=== PATIENT | female | born 1955 | race Caucasian/White ===

== ENCOUNTER → 2019-02-05 | Outpatient (CLI) | payer OTHER ==
--- NOTE | 2019-02-05 12:00 | Diagnostic Imaging Report ---
PROCEDURE: MRI left upper extremity without contrast. TECHNIQUE: Multiplanar, multisequence non contrast-enhanced MRI of the left upper extremity was accomplished. INDICATION: Shoulder pain. There are no prior studies available for comparison. FINDINGS: The T2 coronal fat-saturated sagittal series reveals that there is a tear involving the anterior insertion of the rotator cuff. The tear measures approximately 1 CM in maximum AP diameter. The rotator cuff in this area is bunched but the supraspinatus muscle itself is not retracted.. There is hypertrophy of the acromioclavicular joint and this does result in narrowing of the outlet for the supraspinatus muscle. There is also small amount of fluid within the joint itself indicating there is mild inflammation of joint. In addition, there is fluid in both the subacromial and subdeltoid bursa and the presence of fluid indicates that there is an element of bursitis present. The labrum is thinned posteriorly and most likely torn on a degenerative basis. The biceps tendon and the subscapularis tendon are intact. There is at least a moderate amount of fluid within the biceps tendon sheath. This does suggest a median ulnar inflammation present as well. There is a small joint effusion present. There is no abnormal signal arising from the osseous structures to indicate an acute bony abnormality. IMPRESSION: 1. There is a tear of the anterior insertion of the rotator cuff. The supraspinatus muscle in this area is bunched but not retracted. 2. The hypertrophy of the acromioclavicular does result in narrowing of the outlet for the supraspinatus muscle. There is also evidence of fluid within the acromioclavicular joint and subacromial and subdeltoid bursa as well as in the biceps tendon sheath. The presence of fluid does suggest that there is an element of inflammation present. 3. There is no sign of an acute bony abnormality. Dictated by: Dictated on workstation # [id number]
== END ==
LOC: RAD 09:45
PROVIDERS: ATTEND Nurse Practitioner Family
DX: M75.102 Unspecified rotator cuff tear or rupture of left shoulder, not specified as traumatic (principal); M62.89 Other specified disorders of muscle; Z95.5 Presence of coronary angioplasty implant and graft
CPT/HCPCS: 73221

== ENCOUNTER → 2019-02-17 | Outpatient (CLI) | payer OTHER | LOC: CARD 11:50 | PROVIDERS: ATTEND Internal Medicine Cardiovascular Disease | DX: I25.10 Atherosclerotic heart disease of native coronary artery without angina pectoris (principal); I10 Essential (primary) hypertension; E78.2 Mixed hyperlipidemia; I21.9 Acute myocardial infarction, unspecified | CPT/HCPCS: 93306 ==

== ENCOUNTER → 2019-02-23 | Outpatient (CLI) | payer OTHER ==
[~2019-02-23] MED LIST: REGADENOSON 0.4 MG/5 ML SYR (LEXISCAN) IV ONE
[2019-02-23] MEDS: CATHETER FLUSH 10 ML SYR IV PRN (07:45)
[2019-02-23 09:13] VITALS: BP 119/87
[2019-02-23 09:15] VITALS: BP 114/87
[2019-02-23 09:17] VITALS: BP 119/81
--- NOTE | 2019-02-23 13:06 | STRESS TEST ---
DATE OF SERVICE: 02/23/2019 LEXISCAN MYOVIEW STRESS TEST REPORT REFERRING PHYSICIAN: Dr. Abhilash Robles. Baseline heart rate is 82. Baseline blood pressure 119/87. Baseline EKG is sinus rhythm with no ischemic changes. In summary, the patient was injected with 10.96 mCi of technetium-99 Myoview and the resting images were obtained. Then, the patient received 0.4 mg of Lexiscan followed by 30.3 mCi of technetium-99 Myoview. Throughout the test, there were no EKG changes. The resting and stress images were reviewed and compared in the short axis, horizontal long axis, and vertical long axis views. Review of the images showed diaphragmatic attenuation with decreased uptake involving the whole inferior wall, inferolateral wall and inferoseptum with mild reversibility. SSS is 27. SDS is 4. TID value 1.02. On the gated images, the left ventricle appeared to be in normal size with mild hypokinesia of the inferior wall, still have some contractility. Calculated ejection fraction 54%. CONCLUSION: 1. The patient tolerated Lexiscan well. 2. Diaphragmatic attenuation with fixed defect involving the whole inferior wall with mild reversibility. 3. Normal left ventricular size with mild hypokinesia of the inferior wall, still having some contractility. Calculated ejection fraction 54%. Job ID: [id number] DocumentID: [id number] Dictated Date: 02/23/2019 10:40:45 Accounting Recruiter Date: 02/23/2019 13:05:31 Dictated By: SAYRA AYON MD
== END ==
LOC: CARD 07:33
PROVIDERS: ATTEND Internal Medicine Cardiovascular Disease
DX: I25.10 Atherosclerotic heart disease of native coronary artery without angina pectoris (principal); I10 Essential (primary) hypertension; E78.2 Mixed hyperlipidemia
CPT/HCPCS: 78452; 93017

== ENCOUNTER → 2019-03-03 | Outpatient (CLI) | payer OTHER ==
[~2019-03-03] MED LIST changes: +CATHETER FLUSH 10 ML SYR IV PRN; -REGADENOSON 0.4 MG/5 ML SYR (LEXISCAN) IV ONE
== END ==
LOC: CARD 12:49
PROVIDERS: ATTEND Physician Assistant
DX: I25.10 Atherosclerotic heart disease of native coronary artery without angina pectoris (principal); I10 Essential (primary) hypertension; E78.2 Mixed hyperlipidemia; R94.39 Abnormal result of other cardiovascular function study
CPT/HCPCS: 78452; 93017

== ENCOUNTER 2019-03-11 06:48 | Day surgery (SDC) | payer OTHER ==
[2019-03-11] VITALS (11 sets, daily range): BP systolic 115–147; BP diastolic 86–99
[~2019-03-11] VITALS: Ht 177.8 cm; Wt 86.2 kg
[2019-03-11] MEDS ORDERED: HEParin (CATH LAB) 2,000 ML IV ONE (06:49)
[2019-03-11] MEDS ORDERED: LIDOCAINE 1% INJ 20 ML 20 ML VIAL ONE (06:49)
[2019-03-11] MEDS ORDERED: NS IV 1000 ML 1,000 ML ONE (06:49)
--- OUTSIDE RECORDS SUMMARY | 2019-03-11 06:50 | XMS REPORT | Continuity of Care Document ---
Author Organization Unknown Address Unknown Allergies Active Description Code Type Severity Reaction Onset Reported/Identified Relationship to Patient Clinical Status Yes No Allergy Information Available [id number] Drug Allergy Unknown N/A 02/23/2019 Medications There is no data. Problems Date Dx Coded Attending Type Code Diagnosis Diagnosed By 02/08/2019 ROYAL WARREN Ot M62.89 OTHER SPECIFIED DISORDERS OF MUSCLE 02/08/2019 ROYAL WARREN Ot M75.102 UNSP ROTATR-CUFF TEAR/RUPTR OF LEFT SHOU 02/08/2019 ROYAL WARREN Ot Z95.5 PRESENCE OF CORONARY ANGIOPLASTY IMPLANT 02/17/2019 ROYAL WARREN Ot M62.89 OTHER SPECIFIED DISORDERS OF MUSCLE 02/17/2019 ROYAL WARREN Ot M75.102 UNSP ROTATR-CUFF TEAR/RUPTR OF LEFT SHOU 02/17/2019 ROYAL WARREN Ot Z95.5 PRESENCE OF CORONARY ANGIOPLASTY IMPLANT 02/23/2019 ROYAL WARREN Ot M62.89 OTHER SPECIFIED DISORDERS OF MUSCLE 02/23/2019 ROYAL WARREN Ot M75.102 UNSP ROTATR-CUFF TEAR/RUPTR OF LEFT SHOU 02/23/2019 ROYAL WARREN Ot Z95.5 PRESENCE OF CORONARY ANGIOPLASTY IMPLANT 02/24/2019 SAYRA AYON MD Ot E78.2 MIXED HYPERLIPIDEMIA 02/24/2019 SAYRA AYON MD Ot I10 ESSENTIAL (PRIMARY) HYPERTENSION 02/24/2019 SAYRA AYON MD Ot I21.9 ACUTE MYOCARDIAL INFARCTION, UNSPECIFIED 02/24/2019 SAYRA AYON MD Ot I25.10 ATHSCL HEART DISEASE OF [place] CORONARY 02/26/2019 SAYRA AYON MD Ot E78.2 MIXED HYPERLIPIDEMIA 02/26/2019 SAYRA AYON MD Ot I10 ESSENTIAL (PRIMARY) HYPERTENSION 02/26/2019 SAYRA AYON MD Ot I25.10 ATHSCL HEART DISEASE OF [place] CORONARY 03/04/2019 SADE WALLACE Ot E78.2 MIXED HYPERLIPIDEMIA 03/04/2019 SADE WALLACE Ot I10 ESSENTIAL (PRIMARY) HYPERTENSION 03/04/2019 SADE WALLACE Ot I25.10 ATHSCL HEART DISEASE OF [place] CORONARY 03/04/2019 SADE WALLACE Ot R94.39 ABNORMAL RESULT OF OTHER CARDIOVASCULAR 03/06/2019 ROYAL WARREN Ot M62.89 OTHER SPECIFIED DISORDERS OF MUSCLE 03/06/2019 ROYAL WARREN Ot M75.102 UNSP ROTATR-CUFF TEAR/RUPTR OF LEFT SHOU 03/06/2019 ROYAL WARREN Ot Z95.5 PRESENCE OF CORONARY ANGIOPLASTY IMPLANT 03/09/2019 SADE WALLACE Ot E78.2 MIXED HYPERLIPIDEMIA 03/09/2019 SADE WALLACE Ot I10 ESSENTIAL (PRIMARY) HYPERTENSION 03/09/2019 SADE WALLACE Ot I25.10 ATHSCL HEART DISEASE OF [place] CORONARY 03/09/2019 SADE WALLACE Ot R94.39 ABNORMAL RESULT OF OTHER CARDIOVASCULAR Procedures There is no data. Results There is no data. Encounters ACCT No. Visit Date/Time Discharge Status Pt. Type Provider Facility Loc./Unit Complaint [id number] 03/03/2019 12:49:00 03/03/2019 23:59:59 CLS Outpatient SADE WALLACE Via [facility] CARD ABN STRESS TEST,HTN,CAD [id number] 02/23/2019 07:33:00 02/23/2019 23:59:59 CLS Outpatient SAYRA AYON MD [facility] CARD CAD,HTN [id number] 02/17/2019 11:50:00 02/17/2019 23:59:59 CLS Outpatient SAYRA AYON MD [facility] CARD CAD,HTN [id number] 02/05/2019 09:45:00 02/05/2019 23:59:59 CLS Outpatient ROYAL WARREN [facility] RAD PAIN IN LEFT SHOULDER [id number] 03/11/2019 08:00:00 PEN Preadmit NANY DYE, SAYRA Diez [facility] CATH ABN STRESS TEST,CAD,HTN
[2019-03-11] MEDS ORDERED: NS IV 1000 ML 1,000 ML IV SCH ×2 (07:00→08:30)
[2019-03-11 07:10] LABS: BILIRUBIN,URINE NEGATIVE (NEGATIVE); CLARITY,URINE CLEAR; COLOR,URINE YELLOW; GLUCOSE, URINE (UA) NEGATIVE (NEGATIVE); KETONES,URINE NEGATIVE (NEGATIVE); LEUKOCYTE ESTERASE ,URINE NEGATIVE (NEGATIVE); NITRITE,URINE NEGATIVE (NEGATIVE); PH,URINE 6 (5-9); PROTEIN,URINE 1+ (NEGATIVE); UROBILINOGEN,URINE NORMAL (NORMAL)
[2019-03-11 07:10] LABS: HEMOGLOBIN 16.3 G/DL (11.5-16.0); RED CELL DISTRIBUTION WIDTH 13.7 % (10.0-14.5); WHITE BLOOD COUNT 8.8 10^3/uL (4.3-11.0)
[2019-03-11] MEDS ORDERED: METO50TA15 PO (07:19)
[2019-03-11] MEDS ORDERED: TIOT4MIS2 IH (07:19)
[2019-03-11] MEDS ORDERED: CLOP75TA69 PO (07:19)
[2019-03-11] MEDS ORDERED: ATOR80TA76 PO (07:19)
[2019-03-11] MEDS ORDERED: GLIP5TAB13 PO (07:19)
[2019-03-11] MEDS ORDERED: NITR0.4T39 SL (07:19)
[2019-03-11] MEDS ORDERED: ASPI-999 PO (07:19)
[2019-03-11] MEDS ORDERED: METF-398 PO ×2 (07:19→08:32)
[2019-03-11] MEDS ORDERED: fentaNYL INJECTION 100 MCG/2 ML AMP ONE (07:22)
[2019-03-11] MEDS ORDERED: MIDAZOLAM 5 MG/5 ML (VERSED) VIAL ONE (07:22)
[2019-03-11 07:27] LABS: INR 0.9 (0.8-1.4); PROTHROMBIN TIME PATIENT 12.5 SEC (12.2-14.7)
[2019-03-11 07:33] LABS: ALBUMIN 4.5 GM/DL (3.2-4.5); BILIRUBIN,TOTAL 0.6 MG/DL (0.1-1.0); CALCIUM 9.6 MG/DL (8.5-10.1); CREATININE SERUM 1.1 MG/DL (0.60-1.30); POTASSIUM 4.1 MMOL/L (3.6-5.0); TOTAL PROTEIN 7.1 GM/DL (6.4-8.2)
--- NOTE | 2019-03-11 07:35 | Diagnostic Imaging Report ---
EXAM: CHEST 1 VIEW, AP/PA ONLY INDICATION: Coronary artery disease. Hypertension. COMPARISON: None. FINDINGS: Normal heart size and pulmonary vascularity. No dense consolidation, pleural effusion or pneumothorax. No acute osseous findings. IMPRESSION: No acute cardiopulmonary findings. Dictated by: Dictated on workstation # [id number]
[2019-03-11 07:37] LABS: BACTERIA,URINE TRACE /HPF; SQUAMOUS EPITHELIAL CELL,UR RARE /HPF; WBC,URINE RARE /HPF
--- NOTE | 2019-03-11 08:19 | Cardiac Procedure Note-CS/ASA ---
Pre-Procedure Note Pre-Op Procedure Note H&P Reviewed The H&P was reviewed, patient examined and no changes noted. Date H&P Reviewed: Mar 11, 2019 Time H&P Reviewed: 08:18 Conscious Sedation Pre-Proced Time 08:18 ASA Score 3 For ASA 3 and 4: Consider anesthesia and medical clearance. Also, for patients with a history of failed moderate sedation consider anesthesia. Airway Lungs Heart ASA score ASA 1: a normal healthy patient ASA 2: a patient with a mild systemic disease (mid diabetes, controlled hypertension, obesity x ASA 3: a patient with a severe systemic disease that limits activity (angina, COPD, prior Myocardial infarction) ASA 4: a patient with an incapacitating disease that is a constant threat to life (CHF, renal failure) ASA 5: a moribund patient not expected to survive 24 hrs. (ruptured aneurysm) ASA 6: a declared brain- patient whose organs are being harvested. For emergent operations, add the letter E after the classification Mallampati Classification Grade 3 Sedation Plan Analgesia, Amnesia, Plan communicated to team members, Discussed options with patient/fam, Discussed risks with patient/fam The patient is an appropriate candidate to undergo the planned procedure, sedation, and anesthesia. The patient immediately re-assessed prior to indication. SAYRA AYON MD Mar 11, 2019 08:19
[2019-03-11] MEDS ORDERED: PATIENT MAY USE OWN MEDS, ALL PO SCH (08:30)
--- NOTE | 2019-03-11 08:33 | Discharge Inst-Post CATH ---
Discharge Inst-CATH/EP Post Cardiac Cath/EP D/C Inst Follow Up/Plan Hold metformin for [address] AYON's office in 2-4 weeks <b>CARDIAC CATH/EP PROCEDURE DISCHARGE INSTRUCTIONS</b> Cardiac Rehab Please be expecting a follow up call from Cardiac Rehab within in one week. ACTIVITY * Go Home directly and rest. * Limit activity of the leg (or wrist if it was used) for 7 days including aerobics, swimming, jogging, bicycling, etc. * Restrict stair-climbing for 7 days if possible, if not, climb up with your non-cath leg, then bring together on the same step. * Avoid lifting, pushing, pulling or excessive movement of the affected extremity for 7 days. * Customary sexual activity may be resumed after 2 days-use caution not to use a position that strains or causes pain to the affected extremity. * No driving for 24 hours. * NO SMOKING. * Avoid straining for bowel movements for 7 days. * Gentle walking on level ground is allowed. * Returning to work will depend on the type of procedure and the results. Your doctor will discuss this with you. CALL YOUR DOCTOR FOR ANY OF THE FOLLOWING: *If bleeding from the puncture site occurs- Apply gentle pressure to site with clean cloth and call your doctor or EMS. * If a knot or lump forms under the skin, increases in size, or causes pain. * If bruising appears to be worsening or moving further down your leg instead of disappearing. * Temperature above 101 F. CARE OF YOUR GROIN INCISION; * Bruising or purple discoloration of the skin near the puncture site is common. * You may shower only, no bathtub bathing for 5 days. Be careful to avoid slipping as your leg may feel stiff. * If a closure device was used on your femoral artery, please see the attached guide regarding care of the device and your leg. * Leave dressing on FOR 24 hours. CARE OF YOUR WRIST INCISION; * Bruising or purple discoloration of the skin near the puncture site is common. * You may shower. * DO NOT submerge wrist. * Leave dressing on FOR 24 hours. SAYRA AYON MD Mar 11, 2019 08:33
--- NOTE | 2019-03-11 08:38 | Cardiac Cath Report ---
Cardiac Cath Report Physician (s)/Professor Of Radiology (s) Physician SAYRA AYON MD Pre-Procedure Diagnosis Pre-Procedure Diagnosis: Coronary artery disease Post-Procedure Note Procedure Start Date: Mar 11, 2019 Name of Procedure: Left heart catheterization Findings/Procedure Note PROCEDURE NOTE: 63 years old gentleman with history of coronary artery disease multiple stents in the past, had an abnormal stress test, scheduled for cardiac catheterization possible PTCA. After explaining the procedure to the patient, all pros and cons were explained, all questions were answered. The patient signed the consent and then he was placed on the cardiac catheterization laboratory. Groin was prepped SL fashion local anesthesia was used. Sheath placed in the right femoral artery. Alva right and left catheter were used to access the coronary system. Pigtail was used to access the left ventricular cavity. Left ventriculogram was done At the end of the procedure the sheath was removed. Closure device was used FINDINGS: Hemodynamics LV 117/17, end-diastolic pressure of 17 Aorta 126/66 mean of 75 ANATOMY: Left Main is free of obstructive disease Left Anterior Descending has mild disease nonobstructive disease Left Circumflex has mild disease nonobstructive disease Right Coronory Artery large dominant artery, multiple stents involving the whole body of the right coronary artery that are patent, small vessel disease distally nonobstructive disease LV Gram was done showing slightly prominent left ventricle with inferior wall hypokinesia estimated ejection fraction 40 percent CONCLUSION: 1. Multiple stents in the large dominant right coronary artery that are patent with small vessel disease in the distal portion of the right coronary artery. 2. Mild disease in the left system nonobstructive disease. 3. Slightly prominent left ventricle with hypokinesia of the inferior wall, estimated ejection fraction 40 percent DISCUSSION AND RECOMMENDATION: medical therapy is recommended no intervention is needed Anesthesia Type: Conscious Sedation Estimated blood loss (mL): 15 ml Contrast Amount: 42 ml Total Radiation Dose: 192 mGy Post-Procedure Diagnosis Post-operative diagnosis: Coronary artery disease Hypertension Hyperlipidemia Diabetes mellitus SAYRA AYON MD Mar 11, 2019 08:38
--- NOTE | 2019-03-11 13:13 | NUR ---
food offered 3 times and patient just wanted couple cracker packets and ice water.
== END 2019-03-11 13:15 | disposition home or self-care (01) ==
LOC: CATH 06:48 → EDSEX 06:48 → SDC 08:47 → CATH 13:15
PROVIDERS: ATTEND Internal Medicine Cardiovascular Disease
DX: I25.10 Atherosclerotic heart disease of native coronary artery without angina pectoris (principal); I10 Essential (primary) hypertension; E78.2 Mixed hyperlipidemia; E11.9 Type 2 diabetes mellitus without complications; R94.39 Abnormal result of other cardiovascular function study; J43.9 Emphysema, unspecified; I25.2 Old myocardial infarction; Z79.84 Long term (current) use of oral hypoglycemic drugs; Z79.899 Other long term (current) drug therapy; Z79.82 Long term (current) use of aspirin; Z95.5 Presence of coronary angioplasty implant and graft; Z87.891 Personal history of nicotine dependence
CPT/HCPCS: 36415; 36430; 71045; 80053; 80061; 81000; 85027; 85610; 85730; 87081; 93458

== ENCOUNTER 2020-10-05 04:45 | Inpatient (IN) | payer OTHER ==
[~2020-10-05] VITALS: Ht 177.8 cm; Wt 91.6 kg
[~2020-10-05 04:45] MED LIST changes: +ASPI-999 PO; +ATOR80TA76 PO; -CATHETER FLUSH 10 ML SYR IV PRN; +CLOP75TA69 PO; +GLIP5TAB13 PO; +METF-398 PO; +METO50TA15 PO; +NITR0.4T39 SL; +TIOT4MIS2 IH
[2020-10-05] MEDS ORDERED: FUROSEMIDE 40 MG/4 ML INJ (LASIX) ONE (05:27)
[2020-10-05] MEDS ORDERED: NITROGLYCERIN 2% OINT 1 GM UNIT DOSE PACKET ONE (05:27)
[2020-10-05] MEDS ORDERED: ASPIRIN 81 MG CHEW (CHILDREN'S ASA) ONE (05:27)
[2020-10-05] MEDS ORDERED: ALBUTEROL/IPRATROP (COMBIVENT RESPIMAT) 4 GM INHALER ONE (05:42)
[2020-10-05] MEDS ORDERED: NITROGLYCERIN 2% OINT 1 GM UNIT DOSE PACKET TOP ONE (05:45)
[2020-10-05] MEDS ORDERED: ASPIRIN 81 MG CHEW (CHILDREN'S ASA) PO ONE (05:45)
--- NOTE | 2020-10-05 05:48 | ED Respiratory ---
General Chief Complaint: Respiratory Problems Stated Complaint: RUNNY NOSE,SOB Nursing Triage Note: PT AMBULATES TO ROOM #10 WITH C/O SOA ET RUNNY NOSE X2WKS. UPN ENTERING ROOM, INITIAL SPO2 92% VIA WITH LABORED BREATHING NOTED. PT REPORTS SOA ONLY AT NIGHT FOR PAST X2WKS. DENIES COUGH, FEVER, OR CHILLS. REPORTS HX COPD. Source: patient (FIONA CLEMENTS Mikel DALY) History of Present Illness Date Seen by Provider: Oct 05, 2020 Time Seen by Provider: 05:10 Initial Comments PT ARRIVES VIA POV FROM HOME C/O SHORTNESS OF BREATH X 1 1/2-2 WEEKS SYMPTOMS WORSE AT NIGHT, WHEN HE LAYS DOWN--HAS NOT BEEN ABLE TO SLEEP FOR THE LAST 2 WEEKS ALSO C/O RUNNY NOSE, CLEAR DRAINAGE NO FEVER/SWEATS/CHILLS NO CHEST PAIN NO SORE THROAT NO LOSS OF TASTE OR SMELL NO NAUSEA/VOMITING, HAS HAD A FEW EPISODES OF DIARRHEA OVER THE LAST 2 WEEKS NO SWELLING IN LEGS/FEET NO PALPITATIONS NO DIZZINESS OR SYNCOPE HAS NOT SOUGHT CARE UNTIL TONIGHT--HAS NOT BEEN ABLE TO SLEEP TONIGHT PT HAS COPD--HAS NOT USED INHALER/NEBULIZER TONIGHT ( SPIRIVA) . DOES NOT HAVE HOME O2 . PT CONTINUES TO SMOKE 1 PPD PT IS DIABETIC--DOES NOT ROUTINELY CHECK BLOOD SUGAR HAS CAD WITH AK X 2 AND STENTS X 4. 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 AYON (FIONA CLEMENTS DO) Allergies and Home Medications Allergies Coded Allergies: naproxen (Verified Allergy, Severe, 03/11/19) ANAPHYLAXIS lisinopril (Verified Allergy, Unknown, 03/11/19) PT NOT SURE THAT HE IS ACTUALLY ALLERGIC, KEEPS BEING PUT ON RECORDS Home Medications Aspirin 81 Mg Tab.chew, 81 MG PO DAILY, (Reported) Atorvastatin Calcium 80 Mg Tablet, 80 MG PO HS, (Reported) Clopidogrel Bisulfate 75 Mg Tablet, 75 MG PO DAILY, (Reported) Glipizide 5 Mg Tablet, 5 MG PO DAILY, (Reported) Metformin HCl 850 Mg Tablet, 850 MG PO BID Hold for 48 hours Prescribed by: SAYRA AYON on 03/11/19 0832 Metoprolol Tartrate 50 Mg Tablet, 50 MG PO BID, (Reported) Nitroglycerin 0.4 Mg Tab.subl, 0.4 MG SL UD PRN for CHEST PAIN, (Reported) Tiotropium [place] 4 Gm Mist.inhal, 2 PUFF IH DAILY, (Reported) Patient Home Medication List Home Medication List Reviewed: Yes (HOSSEIN JARA) Review of Systems Review of Systems Constitutional: no symptoms reported; No chills, No diaphoresis, No dizziness, No fever EENTM: nose congestion; No ear pain, No throat pain Respiratory: see HPI; No cough; orthopnea, short of breath Cardiovascular: No chest pain, No edema, No palpitations, No syncope; vascular heart diseas Gastrointestinal: see HPI; No abdominal pain; diarrhea; No nausea, No vomiting Genitourinary: no symptoms reported Musculoskeletal: no symptoms reported Skin: no symptoms reported Psychiatric/Neurological: No Symptoms Reported Hematologic/Lymphatic: No Symptoms Reported Immunological/Allergic: no symptoms reported (FIONA CLEMENTS DO) Past Pvohymk-Anitdl-Jfvidy Hx Past Med/Social Hx: Reviewed and Corrections made (FIONA CLEMENTS DO) Patient Social History Alcohol Use: Past History Recreational Drug Use: No Smoking Status: Current Everyday Smoker (1 PPD) Type Used: Cigarettes 2nd Hand Smoke Exposure: No Recent Foreign Travel: No Contact w/Someone Who Travel: No Recent Infectious Disease Expo: No Recent Hopitalizations: No (FIONA CLEMENTS DO) Alcohol Use: Denies Use (HOSSEIN JARA) Past Medical History Surgeries: Yes Appendectomy, Cardiac, Coronary Stent, Tonsillectomy Respiratory: Yes COPD, Emphysema Currently Using CPAP: No Currently Using BIPAP: No Cardiac: Yes (AK X 2; CARDIAC STENTS X 4) Coronary Artery Disease, Heart Attack, High Cholesterol, Hypertension Neurological: No Genitourinary: No Gastrointestinal: No Musculoskeletal: No Endocrine: Yes Diabetes, Non-Insulin dep HEENT: No Cancer: No Psychosocial: No Integumentary: No Blood Disorders: No (FIONA CLEMENTS DO) Family Medical History SOCIAL HISTORY: -ETOH--DENIES USE -DRUGS--DENIES USE -SMOKES 1 PPD PAST SURGICAL HISTORY: -CARDIAC CATHS--STENTS X 4. LAST CARDIAC CATH HERE 02/2019--NO INTERVENTION, PATENT STENTS, MILD DISEASE. EF 40% -APPENDECTOMY -TONSILLECTOMY ADDITIONAL PAST MEDICAL HISTORY: -AK IN 2010--3 STENTS PLACED -AK IN 2016 WITH CARDIOGENIC SHOCK--1 STENT PLACED. (FIONA CLEMENTS DO) Physical Exam Vital Signs - First Documented 10/05/20 05:00 Temp 36.3 Pulse 91 Resp 26 B/P (MAP) 171/101 (124) Pulse Ox 92 O2 Delivery Room Air O2 Flow Rate 2.00 (HOSSEIN JARA) Capillary Refill : Less Than 3 Seconds (FIONA CLEMENTS DO) Height: 5'10.00" Weight: 190lbs. 0.0oz. 86.059163zl; 27.3 BMI Method: General Appearance: WD/WN, mild distress, other (DYSPNEIC, BUT ABLE TO TALK IN FULL SENTENCES. ) HEENT: PERRL/EOMI, normal ENT inspection, TMs normal, pharynx normal Neck: normal inspection Respiratory: respiratory distress (MILD), decreased breath sounds (IN BASES), accessory muscle use, rales (? FAINT RALES IN BASES? ), other (+ ORTHOPNEA) Cardiovascular: regular rate, rhythm, no murmur Gastrointestinal: non tender, soft Extremities: non-tender, no calf tenderness, pedal edema (1+ EDEMA BILATERALLY) Neurologic/Psychiatric: no motor/sensory deficits, alert, oriented x 3 Skin: normal color, warm/dry; No rash (FIONA CLEMENTS DO) Focused Exam Lactate Level 10/05/20 06:00: Lactic Acid Level 1.66 (HOSSEIN JARA) Lactic Acid Level Laboratory Tests Test 10/05/20 06:00 Lactic Acid Level 1.66 MMOL/L (0.50-2.00) (HOSSEIN JARA) Progress/Results/Core Measures Suspected Sepsis Recent Fever Within 48 Hours: No Infection Criteria Present: Suspected New Infection New/Unexplained Altered Menta: No Sepsis Screen: Possible Severe Sepsis Risk SIRS Temperature: Pulse: 91 Respiratory Rate: 26 Laboratory Tests 10/05/20 05:15: White Blood Count 9.0 Blood Pressure 171 /101 Mean: 124 10/05/20 00:00: Laboratory Tests 10/05/20 05:15: Platelet Count 230 (FIONA CLEMENTS DO) Results/Orders Lab Results Laboratory Tests Test 10/05/20 05:15 10/05/20 06:00 10/05/20 06:15 Range/Units White Blood Count 9.0 4.3-11.0 10^3/uL Red Blood Count 5.57 H 4.30-5.52 10^6/uL Hemoglobin 16.2 13.3-17.7 g/dL Hematocrit 49 40-54 % Mean Corpuscular Volume 88 80-99 fL Mean Corpuscular Hemoglobin 29 25-34 pg Mean Corpuscular Hemoglobin Concent 33 32-36 g/dL Red Cell Distribution Width 12.7 10.0-14.5 % Platelet Count 230 130-400 10^3/uL Mean Platelet Volume 9.9 9.0-12.2 fL Immature Granulocyte % (Auto) 1 % Neutrophils (%) (Auto) 50 42-75 % Lymphocytes (%) (Auto) 34 12-44 % Monocytes (%) (Auto) 10 0-12 % Eosinophils (%) (Auto) 5 0-10 % Basophils (%) (Auto) 1 0-10 % Neutrophils # (Auto) 4.5 1.8-7.8 10^3/uL Lymphocytes # (Auto) 3.1 1.0-4.0 10^3/uL Monocytes # (Auto) 0.9 0.0-1.0 10^3/uL Eosinophils # (Auto) 0.4 H 0.0-0.3 10^3/uL Basophils # (Auto) 0.1 0.0-0.1 10^3/uL Immature Granulocyte # (Auto) 0.1 0.0-0.1 10^3/uL Erythrocyte Sedimentation Rate 1 0-30 MM/HR Prothrombin Time 12.7 12.2-14.7 SEC INR Comment 0.9 0.8-1.4 Activated Partial Thromboplast Time 30 24-35 SEC D-Dimer 0.30 0.00-0.49 UG/ML Sodium Level 137 135-145 MMOL/L Potassium Level 4.5 3.6-5.0 MMOL/L Chloride Level 100 98-107 MMOL/L Carbon Dioxide Level 26 21-32 MMOL/L Anion Gap 11 5-14 MMOL/L Blood Urea Nitrogen 23 H 7-18 MG/DL Creatinine 1.15 0.60-1.30 MG/DL Estimat Glomerular Filtration Rate > 60 BUN/Creatinine Ratio 20 Glucose Level 136 H 70-105 MG/DL Calcium Level 10.0 8.5-10.1 MG/DL Corrected Calcium 8.5-10.1 MG/DL Magnesium Level 2.0 1.6-2.4 MG/DL Total Bilirubin 0.8 0.1-1.0 MG/DL Aspartate Amino Transf (AST/SGOT) 21 5-34 U/L Alanine Aminotransferase (ALT/SGPT) 41 0-55 U/L Alkaline Phosphatase 57 40-136 U/L Total Creatine Kinase 131 30-200 U/L Creatine Kinase MB 3.3 <6.6 NG/ML Myoglobin 52.4 10.0-92.0 NG/ML Troponin I < 0.028 <0.028 NG/ML C-Reactive Protein High Sensitivity 0.03 0.00-0.50 MG/DL B-Type Natriuretic Peptide 45.0 <100.0 PG/ML Total Protein 7.7 6.4-8.2 GM/DL Albumin 4.7 H 3.2-4.5 GM/DL Procalcitonin 0.07 <0.10 NG/ML Coronavirus 2019 (ADELITA) Negative Negative Lactic Acid Level 1.66 0.50-2.00 MMOL/L Blood Gas Puncture Site LEFT RADIAL Blood Gas Patient Temperature 36.3 Arterial Blood pH 7.44 H 7.37-7.43 Arterial Blood Partial Pressure CO2 35 35-45 MMHG Arterial Blood Partial Pressure O2 80 79-93 MMHG Arterial Blood HCO3 24 23-27 MMOL/L Arterial Blood Total CO2 24.7 21.0-31.0 MMOL/L Arterial Blood Oxygen Saturation 95 94-100 % Arterial Blood Base Excess -0.1 -2.5-2.5 MMOL/L Vance Test YES-POS Blood Gas Ventilator Setting NO Blood Gas Inspired Oxygen 3L (HOSSEIN JARA) Micro Results Microbiology 10/05/20 Influenza Types A,B Antigen (DARIANA) - Final, Complete (HOSSEIN JARA) My Orders Orders - HOSSEIN JARA Arterial Blood Gas (10/05/20 06:15) Azithromycin Injection (Zithromax Inject (10/05/20 07:15) Ceftriaxone For Iv Use (Rocephin For I (10/05/20 07:15) Lactated Ringers (Lr 1000 Ml Iv Solution (10/05/20 07:02) (HOSSEIN JARA) Medications Given in ED Current Medications Medications Dose Ordered Sig/Sophia Route Start Time Stop Time Status Last Admin Dose Admin Aspirin 324 mg ONCE ONCE PO 10/05/20 05:45 10/05/20 05:46 DC 10/05/20 05:36 324 MG Dexamethasone Sodium Phosphate 10 mg ONCE ONCE IV 10/05/20 05:45 10/05/20 05:46 DC 10/05/20 05:46 10 MG Furosemide 40 mg STK-MED ONCE .ROUTE 10/05/20 05:27 10/05/20 05:31 DC 10/05/20 05:54 40 MG Nitroglycerin 1 inch ONCE ONCE TOP 10/05/20 05:45 10/05/20 05:46 DC 10/05/20 05:43 1 INCH (HOSSEIN JARA) Vital Signs/I&O 10/05/20 10/05/20 05:00 05:00 Temp 36.3 Pulse 91 Resp 26 B/P (MAP) 171/101 (124) Pulse Ox 92 92 O2 Delivery Room Air Nasal Cannula O2 Flow Rate 2.00 (HOSSEIN JARA) Vital Signs/I&O Capillary Refill : Less Than 3 Seconds (FIONA CLEMENTS DO) Blood Pressure Mean: 124 Progress Note : Progress Note PLACED IN ISOLATION ROOM PPE WORN AT ALL TIMES COVID-19 TESTING PERFORMED PT ADVISED OF NEED FOR QUARANTINE INITIAL O2 SAT 92% ON ARRIVAL, UP TO 94% ON ROOM AIR PLACED ON O2 AT 2L/NC WITH SATS UP TO 95% AND PT STATES HE FEELS A LITTLE LESS SHORT OF BREATH GIVEN ASPIRIN, NITROPASTE GIVEN ADVAIR AND COMBIVENT INHALER TREATMENTS GIVEN DECADRON 0600--CARE TURNED OVER TO DR. JARA, LAB PENDING (FIONA CLEMENTS DO) Progress Note #1: Progress Note Assumed care of the patient at shift change. Patient's oxygen sats are around 94% on 3 L. He says he feels more relaxed on the O2. Nitroglycerin has been applied transdermally. An ABG has been ordered. Suspect there is a combination of COPD and CHF at work. Labs are pending. Progress Note #2: Time: 06:55 Progress Note D-dimer rules out likelihood of a pulmonary embolism. CRP, procalcitonin and white count being normal makes a bacterial infection less likely but an atypical pneumonia is possible. His ABG reveals he has blown off all of his CO2 in pursuit of his hypoxia. On 3-1/2 L SPO2 of 80 indicates he has fairly significant hypoxia at baseline. Since this all started in the last 1 to 2 weeks an infection from atypical versus viral pneumonia is most likely. We will keep him on quarantine and we discussed putting him in the hospital to stay on oxygen and he agrees with this plan. Plan to start azithromycin as well as Rocephin and continue Decadron 6 mg daily. (HOSSEIN JARA) ECG Initial ECG Impression Date: Oct 05, 2020 Initial ECG Impression Time: 05:19 Initial ECG Rate: 90 Initial ECG Rhythm: Normal Sinus Initial ECG Impression: Nonspecific Changes (INFERIOR Q WVES) Initial ECG Comparisson: No Previous ECG Available EKG : EKG Time: 05:21 Rate: 91 Rhythm: Normal Sinus (PVC'S, INFERIOR Q WAVES) (FIONA CLEMENTS DO) Diagnostic Imaging Comments CXR--PER RADIOLOGIST REPORT AT 0605 FINDINGS: There is bilateral air trapping. May be mild right infrahilar atelectasis and/or pneumonitis. There is no evidence of consolidation. No pneumothorax or pleural fluid is seen. IMPRESSION: Background emphysema with probable mild right infrahilar atelectasis and/or pneumonitis. Reviewed: Reviewed by Me (FIONA CLEMENTS DO) Reviewed: Reviewed by Me (HOSSEIN JARA) Departure Communication (Admissions) Time/Spoke to Admitting Phy: 07:00 Discussed the case with Dr. Croft and she agrees to accept the patient to the floor on antibiotics and steroids. (HOSSEIN JARA) Impression Primary Impression: Pneumonia Qualified Codes: J18.9 - Pneumonia, unspecified organism Additional Impressions: Acute respiratory failure with hypoxemia Person under investigation for COVID-19 Disposition: 01 HOME, SELF-CARE Condition: Stable Admissions Decision to Admit Reason: Admit from ER (General) Decision to Admit/Date: Oct 05, 2020 Time/Decision to Admit Time: 06:40 (HOSSEIN JARA) Departure-Patient Inst. Referrals: NO,LOCAL PHYSICIAN (PCP) Primary Care Physician ROYAL WARREN (Family) Primary Care Physician FIONA CLEMENTS DO Oct 05, 2020 05:48 HOSSEIN JARA Oct 05, 2020 06:26
[2020-10-05 05:50] LABS: BASOPHILS # (AUTO) 0.1 10^3/uL (0.0-0.1); BASOPHILS % (AUTO) 1 % (0-10); EOSINOPHILS # (AUTO) 0.4 10^3/uL (0.0-0.3); EOSINOPHILS % (AUTO) 5 % (0-10); HEMATOCRIT 49 % (40-54); HEMOGLOBIN 16.2 g/dL (13.3-17.7); LYMPHOCYTES # (AUTO) 3.1 10^3/uL (1.0-4.0); LYMPHOCYTES % (AUTO) 34 % (12-44); MEAN CORPUSCULAR HEMOGLOBIN 29 pg (25-34); MEAN CORPUSCULAR HGB CONC 33 g/dL (32-36); MEAN CORPUSCULAR VOLUME 88 fL (80-99); MEAN PLATELET VOLUME 9.9 fL (9.0-12.2); MONOCYTES # (AUTO) 0.9 10^3/uL (0.0-1.0); MONOCYTES % (AUTO) 10 % (0-12); NEUTROPHILS # (AUTO) 4.5 10^3/uL (1.8-7.8); NEUTROPHILS % (AUTO) 50 % (42-75); PLATELET COUNT 230 10^3/uL (130-400)
--- NOTE | 2020-10-05 05:59 | Diagnostic Imaging Report ---
INDICATION: Dyspnea. AP view of the chest is obtained with comparison made to study of 03/11/2019. FINDINGS: There is bilateral air trapping. May be mild right infrahilar atelectasis and/or pneumonitis. There is no evidence of consolidation. No pneumothorax or pleural fluid is seen. IMPRESSION: Background emphysema with probable mild right infrahilar atelectasis and/or pneumonitis. Dictated by: Dictated on workstation # [id number]
[2020-10-05 06:03] LABS: ALBUMIN 4.7 GM/DL (3.2-4.5); CHLORIDE 100 MMOL/L (98-107); POTASSIUM 4.5 MMOL/L (3.6-5.0); SODIUM 137 MMOL/L (135-145)
[2020-10-05 06:06] LABS: GLUCOSE 136 MG/DL (70-105); TOTAL PROTEIN 7.7 GM/DL (6.4-8.2)
[2020-10-05 06:07] LABS: BILIRUBIN,TOTAL 0.8 MG/DL (0.1-1.0); CARBON DIOXIDE 26 MMOL/L (21-32)
[2020-10-05 06:09] LABS: ALKALINE PHOSPHATASE 57 U/L (40-136); CREATININE SERUM 1.15 MG/DL (0.60-1.30); GFR ESTIMATED > 60
[2020-10-05 06:11] LABS: BUN/CREATININE RATIO 20
[2020-10-05 06:12] LABS: ALANINE AMINOTRANSFERASE 41 U/L (0-55); FIBRIN DEGRADATION PRODUCTS 0.3 UG/ML (0.00-0.49); INR 0.9 (0.8-1.4); PROTHROMBIN TIME PATIENT 12.7 SEC (12.2-14.7)
[2020-10-05 06:13] LABS: CREATINE KINASE 131 U/L (30-200)
[2020-10-05 06:16] LABS: ERYTHROCYTE SEDIMENTATION RATE 1 MM/HR (0-30)
[2020-10-05 06:20] LABS: CREATINE KINASE MB 3.3 NG/ML (<6.6)
[2020-10-05 06:29] LABS: ABG BASE EXCESS -0.1 MMOL/L (-2.5-2.5); ABG OXYGEN SATURATION 95 % (94-100); ABG PCO2 35 MMHG (35-45); ABG PH 7.44 (7.37-7.43); ABG PO2 80 MMHG (79-93); ABG TCO2 24.7 MMOL/L (21.0-31.0)
[2020-10-05 06:30] LABS: ALLENS TEST YES-POS; INSPIRED O2 3L; PATIENT TEMP 36.3; VENTILATOR NO
[2020-10-05] MEDS ORDERED: LACTATED RINGERS 1,000 ML IV STA (07:02)
--- NOTE | 2020-10-05 07:05 | NUR ---
REPORT GIVEN TO ANYI MOSCOSO TO ASSUME CARE OF PT AT THIS TIME.
[2020-10-05] MEDS ORDERED: cefTRIAXone FOR IV USE 1,000 MG in WATER (STERILE) FOR INJECTION 10 ML IV ONE (07:15)
[2020-10-05] MEDS ORDERED: AZITHROMYCIN INJECTION 500 MG in NS (IVPB) 250 ML IV ONE (07:15)
[2020-10-05] MEDS ORDERED: ADVAIR HFA 115/21 MCG INHALER 8 GM IH ONE (08:00)
--- NOTE | 2020-10-05 08:00 | NUR ---
SARAN PADILLA admitted to room 420-1, with an admitting diagnosis of PNA/ possible covid pending send off rapid negative , on 10/05/20 from ED via wheel chair , accompanied by staff .SARAN PADILLA introduced to surroundings, call light, bed controls, phone, TV, temperature control, lights, meal times, smoking policy, visitor policy, side rail policy, bathrooms and showers. Patient Rights given to patient in the handbook. SARAN PADILLA verbalizes understanding that [facility] is not responsible for the loss or damage to any personal effects or valuables that are kept in the patients posession during their hospitalization. The following Patient Care Plans and discharge were discussed with the patient . SARAN PADILLA verbalizes understanding of Interdisciplinary Patient Education. Patient was informed about the Rapid Response Team and its purpose.
[2020-10-05 08:13] VITALS: BP 126/94
[2020-10-05] MEDS ORDERED: ONDANSETRON 4 MG/2 ML (SDV) Z0FRAN IV PRN (08:30)
[2020-10-05] MEDS ORDERED: LORazepam INJ 2 MG/ML (ATIVAN) VIAL IV PRN (08:30)
[2020-10-05] MEDS ORDERED: CATHETER FLUSH 10 ML SYR IV PRN (08:30)
[2020-10-05] MEDS: LACTATED RINGERS 1,000 ML IV SCH ×2 (08:42→15:13)
[2020-10-05] MEDS ORDERED: ALBUTEROL/IPRATROP (COMBIVENT RESPIMAT) 4 GM INHALER IH ONE (09:00)
[2020-10-05 09:17] VITALS: BP 127/94
[2020-10-05] MEDS: CALCIUM CARBONATE 500 MG (TUMS) TAB.CHEW PO PRN ×2 (10:00→17:50)
[2020-10-05] MEDS: ACETAMINOPHEN 500 MG TAB (TYLENOL) PO PRN ×2 (10:08→17:52)
[2020-10-05] MEDS: inSUlin ASPART (NovoLOG) 1 UNIT/0.01 ML (CHARGE PER UNIT) SC SCH ×4 (11:13→21:09)
[2020-10-05 11:41] VITALS: BP 141/78
[2020-10-05] MEDS ORDERED: GLIP10TA13 PO (13:43)
[2020-10-05] MEDS ORDERED: METF-399 PO (13:43)
[2020-10-05] MEDS ORDERED: METO100T12 PO (13:43)
[2020-10-05] MEDS ORDERED: ROSU40TA23 PO (13:43)
[2020-10-05] MEDS ORDERED: BUDE10.22 IH (13:44)
--- NOTE | 2020-10-05 13:44 | NUR ---
SPOKE WITH THE PT (CALLED THE ROOM PHONE) AND CALLED JANAE DC TO COMPLETE THE MED REC THE FOLLOWING ARE FILL DATES FROM THE DC: 07-26-2020 CLOPIDOGREL 75MG #90/90DS 07-26-2020 ROSUVASTATIN 40MG #90/90DS 09-12-2020 METOPROLOL TART 100MG #90/90DS 09-12-2020 GLIPIZIDE 10MG #180/90DS 09-14-2020 SYMBICORT 80/4.5 #1 09-24-2020 SPIRIVA 2.5MCG #3/90DS 10-01-2020 METFORMIN HCL 1,000MG #180/90DS OTC MEDS: ASPIRIN 81MG
[2020-10-05] MEDS: ALBUTEROL/IPRATROP (COMBIVENT RESPIMAT) 4 GM INHALER IH SCH ×3 (14:41→22:00)
[2020-10-05 15:57] VITALS: BP 116/70
--- NOTE | 2020-10-05 16:02 | History & Physical-Hospitalist ---
History of Present Illness HPI/Chief Complaint Pt is a 64yoCM with a PMH of CAD and [place], Emphysema, and NIDDMII who presented to the ER due to shortness of breath and self described orthopnea. He states that he has been struggling with this for the last 1.5-2 weeks and it has been worsening. He states every night he gets very short of breath and is unable to sleep. At first he relayed orthopnea to the ER but upon further questioning it is not positional and is only related to night time and can happen even if he is standing up. He denies any fever, chills, sick contacts. He states he stays home except for one time a week to go to the store. He reports that he is normally on Spiriva and Symbicort was added but thought this was making him worse. He was found to be hypoxic in the ER and admitted for further management. Source: patient Date Seen 10/05/20 Time Seen by a Provider: 15:56 Attending Physician Yessenia Croft MD PCP No,Local Physician Referring Physician Date of Admission Oct 05, 2020 at 07:10 Home Medications & Allergies Home Medications Reviewed patient Home Medication Reconciliation performed by pharmacy medication reconciliations locate technician and/or nursing. Patients Allergies have been reviewed. Allergies Allergies Coded Allergies naproxen (Verified Allergy, Severe, 03/11/19) ANAPHYLAXIS lisinopril (Verified Allergy, Unknown, 03/11/19) PT NOT SURE THAT HE IS ACTUALLY ALLERGIC, KEEPS BEING PUT ON RECORDS Past Uhrtyxi-Hfyzqo-Lwkqdd Hx Past Med/Social Hx: Reviewed and Corrections made Patient Social History Alcohol Use: Denies Use Recreational Drug Use: No Smoking Status: Former Smoker Type Used: Cigarettes 2nd Hand Smoke Exposure: No Physical Abuse Screen: No Sexual Abuse: No Recent Foreign Travel: No Contact w/other who traveled: No Recent Hopitalizations: No Recent Infectious Disease Expo: No Immunizations Up To Date Pediatric: No Date of Pneumonia Vaccine: Oct 07, 2017 Past Medical History Surgeries: Appendectomy, Cardiac, Coronary Stent, Tonsillectomy Currently Using CPAP: No Currently Using BIPAP: No Cardiac: Coronary Artery Disease, Heart Attack, High Cholesterol, Hypertension Endocrine: Diabetes, Non-Insulin dep History of Blood Disorders: No Adverse Reaction to Blood Dillard: No Family History Colon cancer 19 MOTHER Diabetes mellitus 19 FATHER Respiratory disorder 19 FATHER SOCIAL HISTORY: -ETOH--DENIES USE -DRUGS--DENIES USE -SMOKES 1 PPD PAST SURGICAL HISTORY: -CARDIAC CATHS--STENTS X 4. LAST CARDIAC CATH HERE 02/2019--NO INTERVENTION, PATENT STENTS, MILD DISEASE. EF 40% -APPENDECTOMY -TONSILLECTOMY ADDITIONAL PAST MEDICAL HISTORY: -[place] IN 2010--3 STENTS PLACED -[place] IN 2016 WITH CARDIOGENIC SHOCK--1 STENT PLACED. Review of Systems Constitutional: No chills, No fever EENTM: No no symptoms reported Respiratory: orthopnea, short of breath Cardiovascular: No chest pain; edema, Hx of Intervention; No palpitations Gastrointestinal: No abdominal pain, No constipation, No diarrhea, No nausea, No vomiting Genitourinary: no symptoms reported Musculoskeletal: no symptoms reported Skin: no symptoms reported Psychiatric/Neurological: No Symptoms Reported Physical Exam Physical Exam Vital Signs Vital Signs - First Documented 10/05/20 05:00 Temp 36.3 Pulse 91 Resp 26 B/P (MAP) 171/101 (124) Pulse Ox 92 O2 Delivery Room Air O2 Flow Rate 2.00 Capillary Refill : Less Than 3 Seconds Height, Weight, BMI Height: 5'10.00" Weight: 190lbs. 0.0oz. 86.334160mo; 28.69 BMI Method: General Appearance: No Apparent Distress, Chronically ill HEENT: PERRL/EOMI, Moist Mucous Membranes; No Scleral Icterus (L), No Scleral Icterus (R) Neck: Normal Inspection, Supple Respiratory: No Accessory Muscle Use, Decreased Breath Sounds; No Rhonci, No Wheezing Cardiovascular: Regular Rate, Rhythm, No JVD, No Murmur, Normal Peripheral Puls es Gastrointestinal: Normal Bowel Sounds, Non Tender, Soft Extremity: Normal Capillary Refill, No Calf Tenderness, Pedal Edema (+1 pitting edema to ankles bilaterally) Neurologic/Psychiatric: Alert, Oriented x3, Normal Mood/Affect Skin: Normal Color, Warm/Dry Results Results/Procedures Labs Laboratory Tests 10/05/20 05:15 Patient resulted labs reviewed. Imaging: Reviewed Imaging Report [facility] [place], [place] NAME: RANDYSARAN JC REC#: [id number] PT STATUS: ADM IN : 1955 PHYSICIAN: STARR, FIONA K DO ADMIT DATE: 10/05/20 Signed Date of Exam:10/05/20 CHEST 1 VIEW, AP/PA ONLY INDICATION: Dyspnea. AP view of the chest is obtained with comparison made to study of 03/11/2019. FINDINGS: There is bilateral air trapping. May be mild right infrahilar atelectasis and/or pneumonitis. There is no evidence of consolidation. No pneumothorax or pleural fluid is seen. IMPRESSION: Background emphysema with probable mild right infrahilar atelectasis and/or pneumonitis. Dictated by: Dictated on workstation # [id number] Dict: 10/05/20 0556 Trans: 10/05/20 0745 [id number] Interpreted by: JEMMA VERONICA MD Electronically signed by: JEMMA VERONICA MD 10/05/20 0745 Assessment/Plan Admission Diagnosis Acute hypoxic respiratory failure Admission Status: Inpatient Order (span 2 midnights) Reason for Inpatient Admission: see below Assessment and Plan Acute hypoxic respiratory failure COPD with acute exacerbation Current tobacco use COVID PUI Continue one steroids for exacerbation Continue Advair and home spiriva MAT protocol Pulm consulted, appreciate rec Oxygen supplementation to keep sats >90 Currently on abx, trend procal and DNC tomorrow if negative Rapid COVID negative, PCR pending D-dimer negative CAD Systolic CHF Does not appear to be acutely decompensated BNP normal Echo ordered Last EF evaluation from 03/2019 reveals EF of 40% Resume home meds Discussed with Dr Pham, appreciate recs NIDDMII Continue home glipizide Anticipate higher blood sugars due to steroids SSI DVT ppx: Lovenox Diagnosis/Problems Diagnosis/Problems (1) Tobacco abuse Status: Chronic (2) Non-insulin dependent type 2 diabetes mellitus Status: Chronic (3) COPD (chronic obstructive pulmonary disease) Qualifiers: COPD type: COPD with acute exacerbation Qualified Codes: J44.1 - Chronic obstructive pulmonary disease with (acute) exacerbation (4) Person under investigation for COVID-19 Status: Acute (5) Acute respiratory failure with hypoxemia Status: Acute (6) CAD (coronary artery disease) Status: Chronic Qualifiers: Coronary Disease-Associated Artery/Lesion type: [place] artery [place] vs. transplanted heart: [place] heart Associated angina: without angina Qualified Codes: I25.10 - Atherosclerotic heart disease of [place] coronary artery without angina pectoris (7) HTN (hypertension) Qualifiers: Hypertension type: essential hypertension Qualified Codes: I10 - Essential (primary) hypertension Clinical Quality Measures DVT/VTE Risk/Contraindication: Risk Factor Score Per Nursin RFS Level Per Nursing on Admit: 4+=Very High YESSENIA CROFT MD Oct 05, 2020 16:02
--- NOTE | 2020-10-05 16:11 | Consultation-Cardiology ---
HPI-Cardiology Cardiology Consultation: Date of Consultation 10/05/20 Time Seen by a Provider: 16:50 Date of Admission 10-04-2020 Attending Physician Ana Croft MD Admitting Physician No,Local Physician Consulting Physician Betsy Pham MD Primary Medical Care Manager: Dr. Khan HPI: Chief Complaint: SOB Mr. Padilla is a 64 yr old male admitted to 420 from the ED. He is a COVID PUI. He reports over the last 2 weeks he has had nasal drainage, cough and increasing SOB. He reports orthopnea. He states about 2 weeks ago he had localized, left sided chest pressure, mild in intensity that lasted for several days. Discomfort was constant. Unchanged with activity or emotional stress. He reports that has resolved and has not returned. He reports he received Solu- Medrol in the ED which did improve his symptoms. He denies any c/o pal pitations, syncope or near syncope. No c/o LE swelling. No c/o n/v/d. No c/o fever or chills. Review of Systems-Cardiology Review of Systems Constitutional: No chills, No fever; tiredness Eyes: No vision change Ears/Nose/Throat: No epistaxis, No recent hearing loss Respiratory: As described under HPI Cardiovascular: As described under HPI Gastrointestinal: As described under HPI Genitourinary: No dysuria, No hematuria Musculoskeletal: no symptoms reported Skin: No rash on exposed areas, No ulcerations on exposed areas Psychiatric/Neurological: No anxiety, No depression, No seizure, No focal weakness, No syncope Hematologic: No bleeding abnormalities YLE-Tefjdd-Slkbnb Hx Patient Social History Alcohol Use: Denies Use Recreational Drug Use: No Smoking Status: Former Smoker Type Used: Cigarettes 2nd Hand Smoke Exposure: No Recent Foreign Travel: No Recent Infectious Disease Expo: No Hospitalization with Isolation: Denies Physical Abuse Screen: No Sexual Abuse: No Immunizations Up To Date Date of Pneumonia Vaccine: Oct 07, 2017 Past Medical History PMH As described under Assessment. Family Medical History Family Medical History: He does not report any family h/o CAD. Family History: Colon cancer 19 MOTHER Diabetes mellitus 19 FATHER Respiratory disorder 19 FATHER Allergies and Home Medications Allergies Coded Allergies: naproxen (Verified Allergy, Severe, 03/11/19) ANAPHYLAXIS lisinopril (Verified Allergy, Unknown, 03/11/19) PT NOT SURE THAT HE IS ACTUALLY ALLERGIC, KEEPS BEING PUT ON RECORDS Home Medications Aspirin 81 Mg Tab.chew, 81 MG PO DAILY, (Reported) Budesonide/Formoterol Fumarate 10.2 Gm Hfa.aer.ad, 1-2 PUFF IH BID, (Reported) Clopidogrel Bisulfate 75 Mg Tablet, 75 MG PO DAILY, (Reported) Glipizide 10 Mg Tablet, 10 MG PO BID, (Reported) Metformin HCl 1,000 Mg Tablet, 1,000 MG PO BID, (Reported) Metoprolol Tartrate 100 Mg Tablet, 50 MG PO BID, (Reported) TAKES OF A 100MG TAB Rosuvastatin Calcium 40 Mg Tablet, 40 MG PO HS, (Reported) Tiotropium [place] 4 Gm Mist.inhal, 2 PUFF IH DAILY, (Reported) Physical Exam-Cardiology Physical Exam Vital Signs/I&O 10/06/20 10/06/20 10/06/20 10/06/20 04:45 06:47 08:00 08:00 Temp 36.7 36.4 Pulse 98 86 Resp 20 20 B/P (MAP) 114/65 (81) 112/65 (81) Pulse Ox 97 96 96 O2 Delivery Nasal Cannula Room Air Nasal Cannula Nasal Cannula O2 Flow Rate 3.00 3.00 2.00 10/06/20 10/06/20 10/06/20 10:20 11:40 14:23 Temp 37.0 Pulse 92 Resp 18 B/P (MAP) 108/72 (84) Pulse Ox 95 96 97 O2 Delivery Room Air Room Air Room Air 10/06/20 00:00 Intake Total 590 ml Balance 590 ml Capillary Refill : Less Than 3 Seconds Constitutional: AAO x 3, well-developed, well-nourished HEENT: PERRL, hearing is well preserved, oral hygience is good Neck: No carotid bruit; carotid pulses are 2 + bilaterally Respiratory: No accessory muscle use, No respiratory distress; chest expansion is symmetric, chest is bilaterally symmetric, lungs clear to auscultation Cardiovascular: regular rate-rhythm; No JVD; S1 and S2 Gastrointestinal: No tender; soft, round, audible bowel sounds Extremities: no lower extremity edema bilateral Neurologic/Psychiatric: grossly intact (moves all extremities) Skin: No rash on exposed areas, No ulcerations on exposed areas Data Review Labs Laboratory Tests 10/05/20 16:04: Glucometer 237H 10/05/20 19:54: Glucometer 238H 10/06/20 05:47: White Blood Count 15.8H, Red Blood Count 4.88, Hemoglobin 14.3, Hematocrit 43, Mean Corpuscular Volume 88, Mean Corpuscular Hemoglobin 29, Mean Corpuscular Hemoglobin Concent 33, Red Cell Distribution Width 13.0, Platelet Count 211, Mean Platelet Volume 10.4, Immature Granulocyte % (Auto) 0, Neutrophils (%) (Auto) 88H, Lymphocytes (%) (Auto) 7L, Monocytes (%) (Auto) 5, Eosinophils (%) (Auto) 0, Basophils (%) (Auto) 0, Neutrophils # (Auto) 13.9H, Lymphocytes # (Auto) 1.1, Monocytes # (Auto) 0.8, Eosinophils # (Auto) 0.0, Basophils # (Auto) 0.0, Immature Granulocyte # (Auto) 0.1, Neutrophils % (Manual) 85, Lymphocytes % (Manual) 11, Monocytes % (Manual) 5, Blood Morphology Comment NORMAL, Sodium Level 135, Potassium Level 4.5, Chloride Level 102, Carbon Dioxide Level 21, Anion Gap 12, Blood Urea Nitrogen 26H, Creatinine 1.14, Estimat Glomerular Filtration Rate > 60, BUN/Creatinine Ratio 23, Glucose Level 233H, Calcium Level 8.8, Corrected Calcium 8.8, Total Bilirubin 0.6, Aspartate Amino Transf (AST/SGOT) 17, Alanine Aminotransferase (ALT/SGPT) 31, Alkaline Phosphatase 43, Total Protein 6.3L, Albumin 4.0 10/06/20 06:17: Glucometer 220H 10/06/20 10:41: Glucometer 266H Microbiology 10/05/20 Influenza Types A,B Antigen (DARIANA) - Final, Complete Radiology NAME: SARAN PADILLA [facility] REC#: [id number] PT STATUS: ADM IN : 1955 PHYSICIAN: FIONA CLEMENTS DO ADMIT DATE: 10/05/20 Signed Date of Exam:10/05/20 CHEST 1 VIEW, AP/PA ONLY INDICATION: Dyspnea. AP view of the chest is obtained with comparison made to study of 03/11/2019. FINDINGS: There is bilateral air trapping. May be mild right infrahilar atelectasis and/or pneumonitis. There is no evidence of consolidation. No pneumothorax or pleural fluid is seen. IMPRESSION: Background emphysema with probable mild right infrahilar atelectasis and/or pneumonitis. Dictated by: Dictated on workstation # [id number] Dict: 10/05/20 0556 Trans: 10/05/20 0745 [id number] Interpreted by: JEMMA VERONICA MD Electronically signed by: JEMMA VERONICA MD 10/05/20 0745 ECG Impression ECG Initial ECG Rhythm: Normal Sinus A/P-Cardiology Assessment/Admission Diagnosis Progressive dyspnea of undetermined etiology Acute on chronic exacerbation of COPD Coronary artery disease history of heart attack in October 2010 at 3 stents placed, another heart attack with cardiogenic shock in 2015 and had one stent placed. Most recent cardiac catheterization done March 11, [address] Khan revealed multiple stents in the large dominant right coronary artery that are patent with small vessel disease in the distal portion of the right coronary artery. Mild disease in the left system nonobstructive disease. Slightly prominent left ventricle with hypokinesia of the inferior wall, estimated eje ction fraction 40% Echocardiogram of February [address] Khan showed LVEF 55-65%. Grade 1 diastolic dysfunction. PASP 20-25mmHg Hypertension Hyperlipidemia Nonobstructive carotid artery stenosis per carotid duplex done April 2019 Diabetes mellitus, followed and managed at the [facility]. History of tobaccoism Discussion and Recomendations Progressive dyspnea of undetermined etiology Echocardiogram to eval structure and function Continue current cardiac regimen including, ASA, Plavix, statin and BB Monitor lab closely Replace electrolytes as indicated Management of COPD per pulmonary services Further recs will be based on his hospital course We would like to thank Dr. Croft for this consult Clinical Quality Measures DVT/VTE Risk/Contraindication: Risk Factor Score Per Nursin RFS Level Per Nursing on Admit: 4+=Very High KIMBERLY MULLINS Oct 05, 2020 16:11
[2020-10-05] MEDS: glipiZIDE 5 MG (GLUCOTROL) TAB PO SCH (16:48)
[2020-10-05 19:17] VITALS: BP 131/74
--- NOTE | 2020-10-05 19:30 | Consultation-Cardiology ---
HPI-Cardiology Cardiology Consultation: Date of Consultation 10/05/20 Time Seen by a Provider: 18:45 Date of Admission Attending Physician Ana Croft MD Admitting Physician No,Local Physician Consulting Physician SUKHDEEP KIM MD, MA, FACP, FACC, FSCAI, CCDS Physician requesting consult: Dr Croft HPI: Chief Complaint: CC: Shortness of breath HPI Mr. Moe is a 64 yr old male admitted to 420 from the ED. He is a COVID PUI. He reports over the last 2 weeks he has had nasal drainage, cough and increasing SOB. He reports orthopnea. He states about 2 weeks ago he had localized, left sided chest pressure, mild in intensity that lasted for several days. Discomfort was constant. Unchanged with activity or emotional stress. He reports that has resolved and has not returned. He reports he received Solu- Medrol in the ED which did improve his symptoms. He denies any c/o palpitations, syncope or near syncope. No c/o LE swelling. No c/o n/v/d. No c/o fever or chills. Review of Systems-Cardiology Review of Systems Constitutional: No chills, No fever; tiredness Eyes: No vision change Ears/Nose/Throat: No epistaxis, No recent hearing loss Respiratory: As described under HPI Cardiovascular: As described under HPI Gastrointestinal: As described under HPI Genitourinary: No dysuria, No hematuria Musculoskeletal: no symptoms reported Skin: No rash on exposed areas, No ulcerations on exposed areas Psychiatric/Neurological: No anxiety, No depression, No seizure, No focal weakness, No syncope Hematologic: No bleeding abnormalities VUK-Ktqajw-Ojblys Hx Patient Social History Alcohol Use: Denies Use Recreational Drug Use: No Smoking Status: Former Smoker Type Used: Cigarettes 2nd Hand Smoke Exposure: No Recent Foreign Travel: No Recent Infectious Disease Expo: No Hospitalization with Isolation: Denies Physical Abuse Screen: No Sexual Abuse: No Immunizations Up To Date Date of Pneumonia Vaccine: Oct 07, 2017 Past Medical History PMH As described under Assessment. Family Medical History Family Medical History: He does not report any family h/o CAD. Family History: Colon cancer 19 MOTHER Diabetes mellitus 19 FATHER Respiratory disorder 19 FATHER Allergies and Home Medications Allergies Coded Allergies: naproxen (Verified Allergy, Severe, 03/11/19) ANAPHYLAXIS lisinopril (Verified Allergy, Unknown, 03/11/19) PT NOT SURE THAT HE IS ACTUALLY ALLERGIC, KEEPS BEING PUT ON RECORDS Home Medications Aspirin 81 Mg Tab.chew, 81 MG PO DAILY, (Reported) Budesonide/Formoterol Fumarate 10.2 Gm Hfa.aer.ad, 1-2 PUFF IH BID, (Reported) Clopidogrel Bisulfate 75 Mg Tablet, 75 MG PO DAILY, (Reported) Glipizide 10 Mg Tablet, 10 MG PO BID, (Reported) Metformin HCl 1,000 Mg Tablet, 1,000 MG PO BID, (Reported) Metoprolol Tartrate 100 Mg Tablet, 50 MG PO BID, (Reported) TAKES OF A 100MG TAB Rosuvastatin Calcium 40 Mg Tablet, 40 MG PO HS, (Reported) Tiotropium [place] 4 Gm Mist.inhal, 2 PUFF IH DAILY, (Reported) Patient Home Medication List Home Medication List Reviewed: Yes Physical Exam-Cardiology Physical Exam Vital Signs/I&O 10/05/20 10/05/20 10/05/20 10/05/20 07:45 08:13 09:17 09:55 Temp 36.3 36.6 36.6 Pulse 93 88 88 Resp 22 20 B/P (MAP) 135/77 (124) 126/94 Pulse Ox 95 97 97 97 O2 Delivery Nasal Cannula Nasal Cannula Nasal Cannula O2 Flow Rate 2.00 3.00 2.00 2.00 10/05/20 10/05/20 10/05/20 10/05/20 11:15 11:41 14:42 15:57 Temp 36.6 36.8 Pulse 91 105 Resp 20 18 B/P (MAP) 141/78 (99) 116/70 (85) Pulse Ox 97 95 95 O2 Delivery Nasal Cannula Nasal Cannula Nasal Cannula Nasal Cannula O2 Flow Rate 2.00 3.00 3.00 3.00 10/05/20 19:17 Temp 35.9 Pulse 115 Resp 18 B/P (MAP) 131/74 (93) Pulse Ox 96 O2 Delivery Nasal Cannula O2 Flow Rate 3.00 Capillary Refill : Less Than 3 Seconds Constitutional: AAO x 3, well-developed, well-nourished HEENT: PERRL, hearing is well preserved, oral hygience is good Neck: No carotid bruit; carotid pulses are 2 + bilaterally Respiratory: No accessory muscle use, No respiratory distress; chest expansion is symmetric, chest is bilaterally symmetric, lungs clear to auscultation Cardiovascular: regular rate-rhythm; No JVD; S1 and S2 Gastrointestinal: No tender; soft, round, audible bowel sounds Extremities: no lower extremity edema bilateral Neurologic/Psychiatric: grossly intact (moves all extremities) Skin: No rash on exposed areas, No ulcerations on exposed areas Data Review Labs Laboratory Tests 10/05/20 05:15: White Blood Count 9.0, Red Blood Count 5.57H, Hemoglobin 16.2, Hematocrit 49, Mean Corpuscular Volume 88, Mean Corpuscular Hemoglobin 29, Mean Corpuscular Hemoglobin Concent 33, Red Cell Distribution Width 12.7, Platelet Count 230, Mean Platelet Volume 9.9, Immature Granulocyte % (Auto) 1, Neutrophils (%) (Auto) 50, Lymphocytes (%) (Auto) 34, Monocytes (%) (Auto) 10, Eosinophils (%) (Auto) 5, Basophils (%) (Auto) 1, Neutrophils # (Auto) 4.5, Lymphocytes # (Auto) 3.1, Monocytes # (Auto) 0.9, Eosinophils # (Auto) 0.4H, Basophils # (Auto) 0.1, Immature Granulocyte # (Auto) 0.1, Erythrocyte Sedimentation Rate 1, Prothrombin Time 12.7, INR Comment 0.9, Activated Partial Thromboplast Time 30, D-Dimer 0.30, Sodium Level 137, Potassium Level 4.5, Chloride Level 100, Carbon Dioxide Level 26, Anion Gap 11, Blood Urea Nitrogen 23H, Creatinine 1.15, Estimat Glomerular Filtration Rate > 60, BUN/Creatinine Ratio 20, Glucose Level 136H, Calcium Level 10.0, Corrected Calcium , Magnesium Level 2.0, Total Bilirubin 0.8, Aspartate Amino Transf (AST/SGOT) 21, Alanine Aminotransferase (ALT/SGPT) 41, Alkaline Phosphatase 57, Total Creatine Kinase 131, Creatine Kinase MB 3.3, Myoglobin 52.4, Troponin I < 0.028, C-Reactive Protein High Sensitivity 0.03, B- Type Natriuretic Peptide 45.0, Total Protein 7.7, Albumin 4.7H, Procalcitonin 0.07, Coronavirus (COVID-19)(PCR) Negative, Coronavirus 2019 (ADELITA) Negative 10/05/20 06:00: Lactic Acid Level 1.66 10/05/20 06:15: Blood Gas Puncture Site LEFT RADIAL, Blood Gas Patient Temperature 36.3, Arterial Blood pH 7.44H, Arterial Blood Partial Pressure CO2 35, Arterial Blood Partial Pressure O2 80, Arterial Blood HCO3 24, Arterial Blood Total CO2 24.7, Arterial Blood Oxygen Saturation 95, Arterial Blood Base Excess -0.1, Vance Test YES-POS, Blood Gas Ventilator Setting NO, Blood Gas Inspired Oxygen 3L 10/05/20 11:45: Glucometer 244H 10/05/20 16:04: Glucometer 237H Microbiology 10/05/20 Influenza Types A,B Antigen (DARIANA) - Final, Complete Laboratory Tests 10/05/20 05:15 A/P-Cardiology Assessment/Admission Diagnosis Shortness of breath of undetermined etiology Acute exacerbation of COPD Coronary artery disease history of heart attack in October 2010 at 3 stents placed, another heart attack with cardiogenic shock in 2015 and had one stent placed. Most recent cardiac catheterization done March 11, [address] Khan revealed multiple stents in the large dominant right coronary artery that are patent with small vessel disease in the distal portion of the right coronary artery. Mild disease in the left system nonobstructive disease. Slightly prominent left ventricle with hypokinesia of the inferior wall, estimated ejection fraction 40% Echocardiogram of February [address] Khan showed LVEF 55-65%. Grade 1 diastolic dysfunction. PASP 20-25mmHg Hypertension Hyperlipidemia Nonobstructive carotid artery stenosis per carotid duplex done April 2019 Diabetes mellitus, followed and managed at the [facility]. History of tobaccoism Discussion and Recomendations Echocardiogram to eval structure and function Continue current cardiac regimen including, ASA, Plavix, statin and BB Monitor lab closely Replace electrolytes as indicated Management of COPD per pulmonary services Further recs will be based on his hospital course I discussed his case with Dr Croft on the phone Clinical Quality Measures DVT/VTE Risk/Contraindication: Risk Factor Score Per Nursin RFS Level Per Nursing on Admit: 4+=Very High SUKHDEEP KIM MD FACP FAC CCDS Oct 05, 2020 19:30
[2020-10-05] MEDS: FAMOTIDINE 20 MG (PEPCID) TABLET PO SCH (21:08)
[2020-10-05] MEDS: ROSUVASTATIN 20 MG (CRESTOR) TABLET PO SCH (21:08)
[2020-10-05] MEDS: ENOXAPARIN 40 MG/0.4 ML (LOVENOX) SYR SQ SCH (21:09)
[2020-10-05] MEDS: meTOprolol TARTRATE 50 MG (LOPRESSOR) TAB PO SCH (21:09)
[2020-10-05 21:11] VITALS: BP 140/79
[2020-10-06] VITALS (7 sets, daily range): BP systolic 108–132; BP diastolic 50–72
[2020-10-06] MEDS: ALBUTEROL/IPRATROP (COMBIVENT RESPIMAT) 4 GM INHALER IH SCH ×2 (02:41→06:46)
[2020-10-06 06:22] LABS: BASOPHILS % (AUTO) 0 % (0-10); EOSINOPHILS % (AUTO) 0 % (0-10); HEMATOCRIT 43 % (40-54); HEMOGLOBIN 14.3 g/dL (13.3-17.7); LYMPHOCYTES # (AUTO) 1.1 10^3/uL (1.0-4.0); LYMPHOCYTES % (AUTO) 7 % (12-44); MEAN CORPUSCULAR HEMOGLOBIN 29 pg (25-34); MEAN CORPUSCULAR HGB CONC 33 g/dL (32-36); MEAN CORPUSCULAR VOLUME 88 fL (80-99); MEAN PLATELET VOLUME 10.4 fL (9.0-12.2); MONOCYTES # (AUTO) 0.8 10^3/uL (0.0-1.0); MONOCYTES % (AUTO) 5 % (0-12); NEUTROPHILS # (AUTO) 13.9 10^3/uL (1.8-7.8); NEUTROPHILS % (AUTO) 88 % (42-75); PLATELET COUNT 211 10^3/uL (130-400); WHITE BLOOD COUNT 15.8 10^3/uL (4.3-11.0)
[2020-10-06] MEDS: glipiZIDE 5 MG (GLUCOTROL) TAB PO SCH ×2 (06:28→16:32)
[2020-10-06] MEDS: inSUlin ASPART (NovoLOG) 1 UNIT/0.01 ML (CHARGE PER UNIT) SC SCH ×4 (06:29→21:05)
[2020-10-06 06:49] LABS: CHLORIDE 102 MMOL/L (98-107); POTASSIUM 4.5 MMOL/L (3.6-5.0); SODIUM 135 MMOL/L (135-145)
[2020-10-06 06:51] LABS: CALCIUM 8.8 MG/DL (8.5-10.1)
[2020-10-06 06:52] LABS: GLUCOSE 233 MG/DL (70-105); TOTAL PROTEIN 6.3 GM/DL (6.4-8.2)
[2020-10-06 06:53] LABS: CARBON DIOXIDE 21 MMOL/L (21-32)
[2020-10-06 06:55] LABS: ALKALINE PHOSPHATASE 43 U/L (40-136); CREATININE SERUM 1.14 MG/DL (0.60-1.30); GFR ESTIMATED > 60
[2020-10-06 06:56] LABS: BUN/CREATININE RATIO 23
[2020-10-06 06:58] LABS: ALANINE AMINOTRANSFERASE 31 U/L (0-55)
[2020-10-06 07:11] LABS: BILIRUBIN,TOTAL 0.6 MG/DL (0.1-1.0)
[2020-10-06 07:17] LABS: LYMPHOCYTES % (MANUAL) 11 %; MONOCYTES % (MANUAL) 5 %; NEUTROPHILS % (MANUAL) 85 %; RBC MORPH NORMAL
--- NOTE | 2020-10-06 08:06 | Diagnostic Imaging Report ---
INDICATION: Pneumonia COMPARISON: 10/05/2020 FINDINGS: Single view chest demonstrates stable right hilar infiltrate. COPD is present. There is no consolidation, pneumothorax or effusion. The heart is stable. Osseous structures are age-appropriate. IMPRESSION: Stable right hilar infiltrate with background COPD. Dictated by: Dictated on workstation # [id number]
[2020-10-06] MEDS: ASPIRIN 81 MG CHEW (CHILDREN'S ASA) PO SCH (08:20)
[2020-10-06] MEDS: meTOprolol TARTRATE 50 MG (LOPRESSOR) TAB PO SCH ×2 (08:21→19:44)
[2020-10-06] MEDS: CLOPIDOGREL 75 MG (PLAVIX) TABLET PO SCH (08:21)
[2020-10-06] MEDS: FAMOTIDINE 20 MG (PEPCID) TABLET PO SCH ×2 (08:21→19:44)
[2020-10-06] MEDS ORDERED: cefTRIAXone 1,000 MG/SWFI 10 ML IV PUSH IV SCH ×2 (09:00)
[2020-10-06] MEDS ORDERED: AZITHROMYCIN 500 MG/NS 250 ML IVPB IV SCH ×2 (09:00)
--- NOTE | 2020-10-06 09:14 | Pulmonary Consultation ---
History of Present Illness History of Present Illness Date Seen by Provider: Oct 06, 2020 Time Seen by Provider: 09:09 Date of Admission Allergies and Home Medications Allergies Coded Allergies: naproxen (Verified Allergy, Severe, 03/11/19) ANAPHYLAXIS lisinopril (Verified Allergy, Unknown, 03/11/19) PT NOT SURE THAT HE IS ACTUALLY ALLERGIC, KEEPS BEING PUT ON RECORDS Home Medications Aspirin 81 Mg Tab.chew, 81 MG PO DAILY, (Reported) Budesonide/Formoterol Fumarate 10.2 Gm Hfa.aer.ad, 1-2 PUFF IH BID, (Reported) Clopidogrel Bisulfate 75 Mg Tablet, 75 MG PO DAILY, (Reported) Glipizide 10 Mg Tablet, 10 MG PO BID, (Reported) Metformin HCl 1,000 Mg Tablet, 1,000 MG PO BID, (Reported) Metoprolol Tartrate 100 Mg Tablet, 50 MG PO BID, (Reported) TAKES OF A 100MG TAB Rosuvastatin Calcium 40 Mg Tablet, 40 MG PO HS, (Reported) Tiotropium [place] 4 Gm Mist.inhal, 2 PUFF IH DAILY, (Reported) Past Bebxzlt-Ddzudn-Nhicpg Hx Past Med/Social Hx: Reviewed and Corrections made Patient Social History Alcohol Use: Denies Use Recreational Drug Use: No Smoking Status: Former Smoker Type Used: Cigarettes 2nd Hand Smoke Exposure: No Recent Foreign Travel: No Contact w/Someone Who Travel: No Recent Infectious Disease Expo: No Recent Hopitalizations: No Immunizations Up To Date PED Vaccines UTD: No Date of Pneumonia Vaccine: Oct 07, 2017 Past Medical History Surgeries: Yes Appendectomy, Cardiac, Coronary Stent, Tonsillectomy Respiratory: Yes COPD, Emphysema Currently Using CPAP: No Currently Using BIPAP: No Cardiac: Yes (MD X 2; CARDIAC STENTS X 4) Coronary Artery Disease, Heart Attack, High Cholesterol, Hypertension Neurological: No Genitourinary: No Gastrointestinal: No Musculoskeletal: No Endocrine: Yes Diabetes, Non-Insulin dep HEENT: No Cancer: No Psychosocial: No Integumentary: No Blood Disorders: No Adverse Reaction/Blood Tranf: No Family Medical History Colon cancer 19 MOTHER Diabetes mellitus 19 FATHER Respiratory disorder 19 FATHER SOCIAL HISTORY: -ETOH--DENIES USE -DRUGS--DENIES USE -SMOKES 1 PPD PAST SURGICAL HISTORY: -CARDIAC CATHS--STENTS X 4. LAST CARDIAC CATH HERE 02/2019--NO INTERVENTION, PATENT STENTS, MILD DISEASE. EF 40% -APPENDECTOMY -TONSILLECTOMY ADDITIONAL PAST MEDICAL HISTORY: -MD IN 2011--3 STENTS PLACED -MD IN 2016 WITH CARDIOGENIC SHOCK--1 STENT PLACED. Review of Systems Time Seen by Provider: 09:18 Sepsis Event Evaluation Height, Weight, BMI Height: 5'10.00" Weight: 190lbs. 0.0oz. 86.804415yn; 28.69 BMI Method: Exam Exam Vital Signs Date Time Temp Pulse Resp B/P (MAP) Pulse Ox O2 Delivery O2 Flow Rate FiO2 10/06/20 08:00 36.4 86 20 112/65 (81) 96 Nasal Cannula 3.00 10/06/20 06:47 96 Room Air 10/06/20 04:45 36.7 98 20 114/65 (81) 97 Nasal Cannula 3.00 10/06/20 00:42 37.3 91 20 131/50 (77) 99 Nasal Cannula 3.00 10/05/20 21:11 37.0 110 140/79 (99) Nasal Cannula 3.00 10/05/20 20:30 Nasal Cannula 2.00 10/05/20 19:47 96 Nasal Cannula 3.00 10/05/20 19:17 35.9 115 18 131/74 (93) 96 Nasal Cannula 3.00 10/05/20 15:57 36.8 105 18 116/70 (85) 95 Nasal Cannula 3.00 10/05/20 14:42 95 Nasal Cannula 3.00 10/05/20 11:41 36.6 91 20 141/78 (99) 97 Nasal Cannula 3.00 10/05/20 11:15 Nasal Cannula 2.00 10/05/20 09:55 97 Nasal Cannula 2.00 10/05/20 09:17 36.6 88 97 I & O 10/06/20 07:00 Intake Total 2050 ml Balance 2050 ml Height & Weight Height: 5'10.00" Weight: 190lbs. 0.0oz. 86.765835ah; 28.69 BMI Method: General Appearance: No Apparent Distress, Chronically ill HEENT: PERRL/EOMI, Moist Mucous Membranes; No Scleral Icterus (L), No Scleral Icterus (R) Neck: Normal Inspection, Supple Respiratory: No Accessory Muscle Use, Decreased Breath Sounds; No Rhonci, No Wheezing Cardiovascular: Regular Rate, Rhythm, No JVD, No Murmur, Normal Peripheral Pulses Capillary Refill: Less Than 3 Seconds Gastrointestinal: non tender, soft Extremity: Normal Capillary Refill, No Calf Tenderness, Pedal Edema (+1 pitting edema to ankles bilaterally) Neurologic/Psychiatric: Alert, Oriented x3, Normal Mood/Affect Skin: Normal Color, Warm/Dry Results Lab Laboratory Tests 10/05/20 05:15 10/06/20 05:47 Assessment/Plan Assessment/Plan Acute hypoxic respiratory failure COPD with acute exacerbation -Pt may need oxygen upon discharge -Continue steroids -Add advair -COVID is negative -Spiriva -Change combivent to duoneb Q 4 Hilar infiltration -Check CT of chest to r/o mass Current tobacco use -Education CAD Systolic CHF BNP normal Echo ordered NIDDMII DVT ppx: DAKOTA Kaye DO Oct 06, 2020 09:14
[2020-10-06] MEDS ORDERED: CATHETER FLUSH 10 ML SYR IV PRN (10:00)
[2020-10-06] MEDS ORDERED: HOLD METFORMIN - RECEIVED CONTRAST 20 ML VIAL IV SCH (10:00)
[2020-10-06] MEDS ORDERED: IOHEXOL 350 MG/ML 100 ML (OMNIPAQUE 350) VIAL IV ONE (10:00)
[2020-10-06] MEDS ORDERED: NS 100 ML (IVPB) BAG IV ONE (10:00)
[2020-10-06] MEDS: RT-ALBUTEROL/IPRATROPIUM 3 ML (DUONEB) VIAL INH SCH ×4 (10:17→22:00)
--- NOTE | 2020-10-06 13:53 | Diagnostic Imaging Report ---
PROCEDURE: CT chest with contrast only. TECHNIQUE: Multiple contiguous axial images were obtained through the chest after administration of intravenous contrast. Auto Exposure Controls were utilized during the CT exam to meet ALARA standards for radiation dose reduction. INDICATION: Shortness of breath, mass There are no prior CT chest examinations available for comparison. The plain film examination of the chest performed earlier today noted a stable appearing right hilar infiltrate with background COPD. On this exam the lungs are hyperexpanded consistent with COPD. There are also numerous bulla/blebs involving the upper lobes. There is a thin irregular band of increased density in the peripheral right lung base. I suspect this is secondary to scar formation and/or chronic atelectasis. There is no consolidated pneumonia identified nor is there any sign of a pleural effusion. There is no parenchymal lung mass noted either. The heart size is within normal limits. Coronary calcifications are noted. The aorta is not abnormally dilated and there is no sign of dissection. The pulmonary arteries were not fully opacified but there is no definite defect within the pulmonary arteries to indicate a pulmonary embolus. There is no mediastinal or hilar adenopathy. The thyroid gland is not well visualized. The sections through the upper abdomen failed to show any sign of an acute abnormality. The liver is of lower density than usually seen and this appearance does suggest fatty metamorphosis. The bone windows show no sign of a fracture or of a destructive lesion. There is fairly severe degenerative disc and bone disease at T8-T9. IMPRESSION: 1. There are emphysematous changes involving both lungs but there is no evidence for an acute cardiopulmonary abnormality. 2. The heart is not enlarged but there are coronary artery calcifications evident. 3. The thin irregular band of increased density in the right lung base is more likely due to chronic atelectasis/scar formation than to an acute abnormality . Dictated by: Dictated on workstation # [id number]
--- NOTE | 2020-10-06 14:24 | Progress Note - Hospitalist ---
Subjective HPI/CC On Admission Date Seen by Provider: Oct 06, 2020 Time Seen by Provider: 14:18 Pt is a 64yoCM with a PMH of CAD and DC, Emphysema, and NIDDMII who presented to the ER due to shortness of breath and self described orthopnea. He states that he has been struggling with this for the last 1.5-2 weeks and it has been wor sening. He states every night he gets very short of breath and is unable to sleep. At first he relayed orthopnea to the ER but upon further questioning it is not positional and is only related to night time and can happen even if he is standing up. He denies any fever, chills, sick contacts. He states he stays home except for one time a week to go to the store. He reports that he is normally on Spiriva and Symbicort was added but thought this was making him worse. He was found to be hypoxic in the ER and admitted for further management. Subjective/Events-last exam Pt reports feeling much better today. Has felt better than he has in years though. Focused Exam Lactate Level 10/05/20 06:00: Lactic Acid Level 1.66 Objective Exam Vital Signs Vital Signs Date Time Temp Pulse Resp B/P (MAP) Pulse Ox O2 Delivery O2 Flow Rate FiO2 10/06/20 11:40 37.0 92 18 108/72 (84) 96 Room Air 10/06/20 08:00 2.00 Capillary Refill : Less Than 3 Seconds General Appearance: No Apparent Distress, Chronically ill Respiratory: Lungs Clear, No Respiratory Distress Cardiovascular: Regular Rate, Rhythm, No Murmur Neurologic/Psychiatric: Alert, Oriented x3 Results/Procedures Lab Laboratory Tests 10/06/20 05:47 Patient resulted labs reviewed. Imaging: Reviewed Imaging Report Assessment/Plan Assessment and Plan Assess & Plan/Chief Complaint Acute hypoxic respiratory failure COPD with acute exacerbation Current tobacco use COVID PUI Continue on steroids for exacerbation Continue Advair and home spiriva MAT protocol Pulm consulted, appreciate rec Oxygen supplementation to keep sats >90 Currently on abx, trend procal and DC tomorrow if negative Rapid COVID negative, PCR negative D-dimer negative CAD Systolic CHF Does not appear to be acutely decompensated BNP normal Echo pending Last EF evaluation from 03/2019 reveals EF of 40% Continue home meds Discussed with Dr Pham, appreciate recs NIDDMII Continue home glipizide Anticipate higher blood sugars due to steroids SSI DVT ppx: Lovenox Diagnosis/Problems Diagnosis/Problems (1) Tobacco abuse Status: Chronic (2) Non-insulin dependent type 2 diabetes mellitus Status: Chronic (3) COPD (chronic obstructive pulmonary disease) Qualifiers: COPD type: COPD with acute exacerbation Qualified Codes: J44.1 - Chronic obstructive pulmonary disease with (acute) exacerbation (4) Person under investigation for COVID-19 Status: Acute (5) Acute respiratory failure with hypoxemia Status: Acute (6) CAD (coronary artery disease) Status: Chronic Qualifiers: Coronary Disease-Associated Artery/Lesion type: [place] artery [place] vs. transplanted heart: [place] heart Associated angina: without angina Qualified Codes: I25.10 - Atherosclerotic heart disease of [place] coronary artery without angina pectoris (7) HTN (hypertension) Qualifiers: Hypertension type: essential hypertension Qualified Codes: I10 - Essential (primary) hypertension Clinical Quality Measures DVT/VTE Risk/Contraindication: Risk Factor Score Per Nursin RFS Level Per Nursing on Admit: 4+=Very High YESSENIA SEGUNDO MD Oct 06, 2020 14:24
--- NOTE | 2020-10-06 17:55 | Progress Note - Cardiology ---
Cardiology SOAP Progress Note Subjective: Feels better today Could sleep last night w/o difficulty No cp or palp or syncope Shortness of breath improved Objective: I&O/Vital Signs 10/06/20 10/06/20 10/06/20 10/06/20 06:47 08:00 08:00 10:20 Temp 36.4 Pulse 86 Resp 20 B/P (MAP) 112/65 (81) Pulse Ox 96 96 95 O2 Delivery Room Air Nasal Cannula Nasal Cannula Room Air O2 Flow Rate 3.00 2.00 10/06/20 10/06/20 10/06/20 11:40 14:23 15:39 Temp 37.0 36.8 Pulse 92 95 Resp 18 18 B/P (MAP) 108/72 (84) 112/56 (74) Pulse Ox 96 97 96 O2 Delivery Room Air Room Air Room Air 10/06/20 00:00 Intake Total 590 ml Balance 590 ml Weight (Pounds): 190 Weight (Ounces): 0.0 Weight (Calculated Kilograms): 86.293085 Constitutional: AAO x 3, well-developed, well-nourished Respiratory: No accessory muscle use, No respiratory distress; chest expansion is symmetric, chest is bilaterally symmetric, lungs clear to auscultation Cardiovascular: regular rate-rhythm; No JVD; S1 and S2 Gastrointestional: No tender; soft, round, audible bowel sounds Extremities: no lower extremity edema bilateral Neurologic/Psychiatric: grossly intact (moves all extremities) Skin: No rash on exposed areas, No ulcerations on exposed areas Results/Procedures: Labs Laboratory Tests 10/05/20 19:54: Glucometer 238H 10/06/20 05:47: White Blood Count 15.8H, Red Blood Count 4.88, Hemoglobin 14.3, Hematocrit 43, Mean Corpuscular Volume 88, Mean Corpuscular Hemoglobin 29, Mean Corpuscular Hemoglobin Concent 33, Red Cell Distribution Width 13.0, Platelet Count 211, Mean Platelet Volume 10.4, Immature Granulocyte % (Auto) 0, Neutrophils (%) (Auto) 88H, Lymphocytes (%) (Auto) 7L, Monocytes (%) (Auto) 5, Eosinophils (%) (Auto) 0, Basophils (%) (Auto) 0, Neutrophils # (Auto) 13.9H, Lymphocytes # (Auto) 1.1, Monocytes # (Auto) 0.8, Eosinophils # (Auto) 0.0, Basophils # (Auto) 0.0, Immature Granulocyte # (Auto) 0.1, Neutrophils % (Manual) 85, Lymphocytes % (Manual) 11, Monocytes % (Manual) 5, Blood Morphology Comment NORMAL, Sodium Level 135, Potassium Level 4.5, Chloride Level 102, Carbon Dioxide Level 21, Anion Gap 12, Blood Urea Nitrogen 26H, Creatinine 1.14, Estimat Glomerular Filtration Rate > 60, BUN/Creatinine Ratio 23, Glucose Level 233H, Calcium Level 8.8, Corrected Calcium 8.8, Total Bilirubin 0.6, Aspartate Amino Transf (AST/SGOT) 17, Alanine Aminotransferase (ALT/SGPT) 31, Alkaline Phosphatase 43, Total Protein 6.3L, Albumin 4.0 10/06/20 06:17: Glucometer 220H 10/06/20 10:41: Glucometer 266H 10/06/20 15:29: Glucometer 310H Microbiology 10/05/20 Gram Stain - Final, Resulted 10/05/20 Sputum Culture - Preliminary, Resulted Usual upper respiratory alanna 10/05/20 Blood Culture - Preliminary, Resulted No growth Laboratory Tests 10/05/20 05:15 10/06/20 05:47 A/P: Assessment: Shortness of breath, probably due to acute exacerbation of COPD Coronary artery disease history of heart attack in October 2010 at 3 stents placed, another heart attack with cardiogenic shock in 2015 and had one stent placed. Most recent cardiac catheterization done March 11, [address] Khan revealed multiple stents in the large dominant right coronary artery that are patent with small vessel disease in the distal portion of the right coronary artery. Mild disease in the left system nonobstructive disease. Slightly prominent left ventricle with hypokinesia of the inferior wall, estimated ejection fraction 40% Echo of 10/06/20: LVEF 55-60%, grade 1 diastolic dysfunction, PASP 25-30 mmHg Hypertension Hyperlipidemia Nonobstructive carotid artery stenosis per carotid duplex done April 2019 Diabetes mellitus, followed and managed at the [facility]. History of tobaccoism Plan: Continue current cardiac regimen including, ASA, Plavix, statin and BB Management of COPD per Hospitalist svce Ok to d/c from cardiac standpoint Outpt cardiac f/u with Dr Khan advised SUKHDEEP KIM MD FACP [facility] Oct 06, 2020 17:55
[2020-10-06] MEDS: ENOXAPARIN 40 MG/0.4 ML (LOVENOX) SYR SQ SCH (18:35)
[2020-10-06] MEDS: ADVAIR HFA 115/21 MCG INHALER 8 GM IH SCH (19:27)
[2020-10-06] MEDS: ROSUVASTATIN 20 MG (CRESTOR) TABLET PO SCH (19:45)
[2020-10-07] MEDS: RT-ALBUTEROL/IPRATROPIUM 3 ML (DUONEB) VIAL INH SCH ×3 (05:56→11:53)
[2020-10-07] MEDS: inSUlin ASPART (NovoLOG) 1 UNIT/0.01 ML (CHARGE PER UNIT) SC SCH ×2 (06:03→12:28)
[2020-10-07] MEDS: glipiZIDE 5 MG (GLUCOTROL) TAB PO SCH (06:05)
[2020-10-07] MEDS: ADVAIR HFA 115/21 MCG INHALER 8 GM IH SCH (07:16)
[2020-10-07 07:42] VITALS: BP 121/72
[2020-10-07] MEDS ORDERED: AZITHROMYCIN 250 MG TAB (ZITHROMAX) PO SCH (09:00)
--- NOTE | 2020-10-07 09:03 | Pulmonary Progress Note ---
Subjective Time Seen by a Provider: 09:02 Subjective/Events-last exam No complications noted. Sepsis Event Evaluation Height, Weight, BMI Height: 5'10.00" Weight: 190lbs. 0.0oz. 86.363055oz; 28.69 BMI Method: Focused Exam Lactate Level 10/05/20 06:00: Lactic Acid Level 1.66 Exam Exam Vital Signs Date Time Temp Pulse Resp B/P (MAP) Pulse Ox O2 Delivery O2 Flow Rate FiO2 10/07/20 07:42 36.6 94 20 121/72 (88) 98 Room Air 10/07/20 07:14 96 Room Air 10/07/20 00:20 95 Room Air 10/06/20 23:22 36.7 99 20 126/70 (88) 97 Room Air 10/06/20 19:56 36.3 97 18 132/70 (90) 94 Room Air 10/06/20 19:45 Room Air 10/06/20 19:27 94 Room Air 10/06/20 19:23 94 Room Air 10/06/20 15:39 36.8 95 18 112/56 (74) 96 Room Air 10/06/20 14:23 97 Room Air 10/06/20 11:40 37.0 92 18 108/72 (84) 96 Room Air 10/06/20 10:20 95 Room Air I & O 10/07/20 07:00 Intake Total 1090 ml Balance 1090 ml Height & Weight Height: 5'10.00" Weight: 190lbs. 0.0oz. 86.378501yl; 28.69 BMI Method: General Appearance: No Apparent Distress, Chronically ill HEENT: PERRL/EOMI, Moist Mucous Membranes; No Scleral Icterus (L), No Scleral Icterus (R) Neck: Normal Inspection, Supple Respiratory: Lungs Clear, No Respiratory Distress Cardiovascular: Regular Rate, Rhythm, No Murmur Capillary Refill: Less Than 3 Seconds Gastrointestinal: non tender, soft Extremity: Normal Capillary Refill, No Calf Tenderness, Pedal Edema (+1 pitting edema to ankles bilaterally) Neurologic/Psychiatric: Alert, Oriented x3 Skin: Normal Color, Warm/Dry Results Lab Laboratory Tests 10/06/20 05:47 Assessment/Plan Assessment/Plan Acute hypoxic respiratory failure COPD with acute exacerbation -Pt may need oxygen upon discharge -Continue steroids -advair -COVID is negative -Spiriva -Change combivent to duoneb Q 4 Hilar infiltration -CT of chest to r/o mass -- No mass seen Current tobacco use -Education CAD Systolic CHF BNP normal Echo ordered NIDDMII DVT ppx: Lovenox I'll f/u with pt in 2-3wks as out pt for further testing DAKOTA CONRAD DO Oct 07, 2020 09:03
[2020-10-07 09:15] LABS: HEMOGLOBIN 14.8 g/dL (13.3-17.7); MEAN PLATELET VOLUME 10.3 fL (9.0-12.2); WHITE BLOOD COUNT 21.4 10^3/uL (4.3-11.0)
[2020-10-07 09:27] LABS: CHLORIDE 99 MMOL/L (98-107); POTASSIUM 3.6 MMOL/L (3.6-5.0); SODIUM 136 MMOL/L (135-145)
[2020-10-07 09:28] LABS: CALCIUM 9.1 MG/DL (8.5-10.1); GLUCOSE 245 MG/DL (70-105)
[2020-10-07 09:30] LABS: CARBON DIOXIDE 22 MMOL/L (21-32)
[2020-10-07 09:32] LABS: GFR ESTIMATED > 60
[2020-10-07 09:33] LABS: BUN/CREATININE RATIO 24
[2020-10-07] MEDS: ASPIRIN 81 MG CHEW (CHILDREN'S ASA) PO SCH (10:02)
[2020-10-07] MEDS: meTOprolol TARTRATE 50 MG (LOPRESSOR) TAB PO SCH (10:03)
[2020-10-07] MEDS: FAMOTIDINE 20 MG (PEPCID) TABLET PO SCH (10:03)
[2020-10-07] MEDS: CLOPIDOGREL 75 MG (PLAVIX) TABLET PO SCH (10:03)
[2020-10-07] MEDS ORDERED: FLUT12AE4 IH (10:33)
[2020-10-07] MEDS ORDERED: PRED10TA22 PO (10:33)
--- NOTE | 2020-10-07 10:52 | Discharge Summary ---
Diagnosis/Chief Complaint Date of Admission Oct 05, 2020 at 07:10 Date of Discharge Discharge Date: Oct 06, 2020 Admission Diagnosis Acute hypoxic respiratory failure Primary Care Ray Gutierrez Discharge Diagnosis (1) Tobacco abuse Status: Chronic (2) Non-insulin dependent type 2 diabetes mellitus Status: Chronic (3) COPD (chronic obstructive pulmonary disease) (4) Person under investigation for COVID-19 Status: Resolved (5) Acute respiratory failure with hypoxemia Status: Acute (6) CAD (coronary artery disease) Status: Chronic (7) HTN (hypertension) Discharge Summary Procedures/Consulations Dr Pham- Cardiology Dr Mcrae- Pulm Discharge Physical Exam Allergies: Coded Allergies: naproxen (Verified Allergy, Severe, 03/11/19) ANAPHYLAXIS lisinopril (Verified Allergy, Unknown, 03/11/19) PT NOT SURE THAT HE IS ACTUALLY ALLERGIC, KEEPS BEING PUT ON RECORDS Vitals & I&Os Vital Signs Date Time Temp Pulse Resp B/P (MAP) Pulse Ox O2 Delivery O2 Flow Rate FiO2 10/07/20 13:05 36.6 94 20 121/72 94 Room Air 2.00 General Appearance: No Apparent Distress Respiratory: No Accessory Muscle Use, Decreased Breath Sounds; No Rhonci, No Wheezing Cardiovascular: Regular Rate, Rhythm, No Murmur Neurologic/Psychiatric: Alert, Oriented x3 Hospital Course Pt was admitted duet COPD exacerbation. He was treated with steroids, and his inhalers were adjusted. Pulm was consulted as well and CT chest was done which revealed known emphysema. Cardiology was consulted as well given history of orthopnea and leg swelling but overall symptoms more consistent with COPD exacerbation. He responded well to therapy and stated he felt better than he had in years. Nocturnal oximetry and ambulatory oximetry were done and revealed a 2- 3 lpm need. This was ordered and arranged prior to discharge. He was discharged in stable condition to follow up with his PCP at the [facility] and with Dr Mcrae. Labs (last 24 hrs) Microbiology 10/05/20 Gram Stain - Final, Complete 10/05/20 Sputum Culture - Final, Complete Usual upper respiratory alanna 10/05/20 Blood Culture - Preliminary, Resulted No growth Patient resulted labs reviewed. Pending Labs Imaging: Reviewed Imaging Report Discussion & Recommendations Discharge Planning: >30 minutes discharge planning Discharge Home Medications: Active Scripts Active Prednisone 10 Mg Tab.ds.pk 10 Mg PO DAILY Take 6 tabs(60mg)daily,decrease by 1 tab(10mg)every other day. Advair Hfa 115-21 Mcg Inhaler (Fluticasone/Salmeterol) 12 Gm Hfa.aer.ad 0 Puff IH RTBID Reported Metoprolol Tartrate 100 Mg Tablet 50 Mg PO BID TAKES OF A 100MG TAB Rosuvastatin Calcium 40 Mg Tablet 40 Mg PO HS Glipizide 10 Mg Tablet 10 Mg PO BID Metformin HCl 1,000 Mg Tablet 1,000 Mg PO BID Plavix (Clopidogrel Bisulfate) 75 Mg Tablet 75 Mg PO DAILY Aspirin 81 Mg Tab.chew 81 Mg PO DAILY Spiriva Respimat 2.5MCG/ACTUATION (Tiotropium [place]) 4 Gm Mist.inhal 2 Puff IH DAILY Instructions to patient/family Please see electronic discharge instructions given to patient. Clinical Quality Measures DVT/VTE Risk/Contraindication: Risk Factor Score Per Nursin RFS Level Per Nursing on Admit: 4+=Very High Problem Qualifiers (1) COPD (chronic obstructive pulmonary disease): COPD type: COPD with acute exacerbation Qualified Codes: J44.1 - Chronic obstructive pulmonary disease with (acute) exacerbation (2) CAD (coronary artery disease): Coronary Disease-Associated Artery/Lesion type: [place] artery [place] vs. transplanted heart: [place] heart Associated angina: without angina Qualified Codes: I25.10 - Atherosclerotic heart disease of [place] coronary artery without angina pectoris (3) HTN (hypertension): Hypertension type: essential hypertension Qualified Codes: I10 - Essential (primary) hypertension YESSENIA SEGUNDO MD Oct 07, 2020 10:52
--- NOTE | 2020-10-07 11:45 | NUR ---
SPO2 DROPPED TO 86% ON ROOM AIR WITH EXERTION. PLACED PT ON O2 @ 2 LPM. SPO2 STAYED AT 94% ON O2 @ 2 LPM WITH EXERTION. Addendum: 10/07/20 at 1207 by MARTIN FRIEDMAN RT Amended: Links added.
--- NOTE | 2020-10-07 12:00 | Discharge Inst-Simple/Standard ---
Discharge Inst-Standard Discharge Medications New, Converted or Re-Newed RX: Transmitted to Pharmacy Patient Instructions/Follow Up Plan of Care/Instructions/FU: Please continue to take your medications as written. Please follow up with your primary care doctor to follow up this hospital stay. Please continue to wear a mask and help slow the spread of COVID19. Activity as Tolerated: Yes Discharge Diet: ADA Diet Return to The Hospital For: Chest pain, shortness of breath, fever, if you feel you are getting worse. YESSENIA SEGUNDO MD Oct 07, 2020 12:00
[2020-10-07 13:05] VITALS: BP 121/72
--- NOTE | 2020-10-11 08:32 | NUR ---
Patient discharged to home without oxygen over the weekend. F/U phone call to patient on 10/10/19 et he indicates that he feels short of breath and continues to feel like he needs oxygen. He sounded short of air while talking with me on the phone. As we talked I discovered that the patient has [employer] [place] only. This insurance has historically been problematic to set up oxygen through. I let the patient know that we would be working on trying to get him oxygen and that I would f/u with him when I had more news. I spoke with the [facility] oxygen coordinator Joseline out of [place] on 10/10/19 and faxed her all of the clinical information to show that the patient would qualify for needed oxygen according to [facility] guidelines. This information contained an oxygen study performed by a Respiratory Therapist and also an overnight oxygen study that also showed he became hypoxic x5 during his sleep cycle. Joseline called back this a.m. 10/11/19 and reported that according to the [facility] guidelines the patient does not qualify for oxygen. I called and left a message on [employer] phone this a.m. with my return phone number. He could potentially rent oxygen through our DME as a 2nd option. Will discuss with him when/if he calls me back.
--- NOTE | 2020-10-11 22:48 | Physician Query Clarification ---
PQ-Uncertain Diagnosis Admission/Discharge Admission Date: Oct 05, 2020 at 07:10 Discharge Date: Oct 07, 2020 at 13:05 YESSENIA Wiggins MD The medical record reflects the following clinical scenario: History/Risk Factors: 64 y/o mlae patient admitted due to COPD exacerbation treated with steroids, Pneumonia was documented only in ER provider note. Clinical Findings: Chest X ray- Stable right hilar infiltrate with background COPD Treatment: Steroids, Azithromycin. Question: Is [place] a clinically valid diagnosis? Pneumonia was documented in the ER provider note, 10/06 with no further documentation in the medical record. Please document a response in Progress Note or Discharge Summary. 1. Yes, clinically valid, condition resolved. 2. No, condition ruled out. 3. Other, with explanation of clinical findings. 4. Undetermined, no explanation for clinical findings. PHYSICIAN RESPONSE Diagnosis clinically valid: No, conditon ruled out Please remember a lack of response to the above will prompt a phone page by CDI/Coding staff. In responding to this query, please exercise your independent professional judgment. The purpose of this communication is to more accurately reflect the complexity of your patients condition. The fact that a question is asked does not imply that any particular answer is desired or expected. Thank you for your timely response to this clarification. Requestors name: [ ] Phone # [ ] THIS PHYSICIAN QUERY FORM IS A PERMANENT PART OF THE MEDICAL RECORD KRISTINE GRANT Oct 11, 2020 22:48 YESSENIA SEGUNDO MD Oct 17, 2020 18:52
== END 2020-10-07 13:05 | disposition home or self-care (01) | DRG 190 ==
LOC: EDUNIT# 04:45 → ER 04:49 → 4TH 07:10
PROVIDERS: ADMIT Family Medicine; ATTEND Family Medicine
DX: J43.9 Emphysema, unspecified (principal); J96.01 Acute respiratory failure with hypoxia; I50.20 Unspecified systolic (congestive) heart failure; F17.210 Nicotine dependence, cigarettes, uncomplicated; Z20.822 Contact with and (suspected) exposure to COVID-19; I25.10 Atherosclerotic heart disease of native coronary artery without angina pectoris; I25.2 Old myocardial infarction; E78.00 Pure hypercholesterolemia, unspecified; I10 Essential (primary) hypertension; E11.9 Type 2 diabetes mellitus without complications; Z95.5 Presence of coronary angioplasty implant and graft; Z90.49 Acquired absence of other specified parts of digestive tract; Z79.82 Long term (current) use of aspirin
CPT/HCPCS: 36415; 71045; 71260; 80048; 80053; 82550; 82553; 82805; 82962; 83605; 83735; 83874; 83880; 84145; 84484; 85007; 85025; 85027; 85379; 85610; 85652; 85730; 86141; 87040; 87070; 87205; 87635; 87804; 93005; 93041; 93306; 94640; 94760; 94761; 96365; 96375

== ENCOUNTER → 2020-11-02 | Outpatient (CLI) | payer OTHER ==
[~2020-11-02] MED LIST changes: +BUDE10.22 IH; +FLUT12AE4 IH; +GLIP10TA13 PO; +METF-399 PO; +METO100T12 PO; +PRED10TA22 PO; +ROSU40TA23 PO
[2020-11-03 06:31] LABS: ALTERNARIA MOLD RAST <0.10 kU/L (0.00-0.09); RAGWEED RAST <0.10 kU/L (0.00-0.09)
== END ==
LOC: LAB 13:29
PROVIDERS: ATTEND Nurse Practitioner Family
DX: J30.9 Allergic rhinitis, unspecified (principal)
CPT/HCPCS: 36415; 82785; 86003

== ENCOUNTER 2020-11-19 05:25 | Emergency (ER) | payer OTHER ==
[~2020-11-19] VITALS: Ht 177.8 cm; Wt 90.7 kg
[2020-11-19] MEDS ORDERED: ALBUTEROL/IPRATROP (COMBIVENT RESPIMAT) 4 GM INHALER ONE (05:48)
--- NOTE | 2020-11-19 06:03 | ED Respiratory ---
General Chief Complaint: Respiratory Problems Stated Complaint: SOB Source: patient, old records (MARK CLEMENTSA Mikel DALY) History of Present Illness Date Seen by Provider: Nov 19, 2020 Time Seen by Provider: 05:37 Initial Comments PT ARRIVES VIA POV FROM HOME C/O SHORTNESS OF BREATH SINCE AROUND [id number] LAST PM UNABLE TO LAY DOWN DUE TO SHORTNESS OF BREATH AND ALSO MUCH WORSE WITH ANY EXERTION NO CHEST PAIN NO KNOWN FEVER, BUT IS DIAPHORETIC ON ARRIVAL. NO CHILLS HAS HAD PRODUCTIVE COUGH WITH WHITE SPUTUM NO SWELLING IN LEGS/ FEET PT HAS COPD, USES O2 PRN EXERTION AND AT HS--NO IMPROVEMENT LAST NIGHT WITH OXYGEN. ARRIVES IN ER WITHOUT ANY OXYGEN PT USED SPIRIVA INHALER YESTERDAY MORNING, AND TOOK REGULAR DOSES OF ADVAIR Y MORNING AND LAST PM AROUND [id number]--NO IMPROVEMENT HAS NOT TAKEN ANY MORNING MEDICATIONS PT SMOKES 1 PPD PT ADMITTED 10/05/20 FOR COPD/ PNEUMONIA--COVID TEST NEGATIVE AT THAT TIME ALSO HAS HISTORY OF IA X 2 WITH STENTS X 4 PT IS ALSO DIABETIC--HAS NOT CHECKED BLOOD GLUCOSE TODAY PCP: [facility] NURSE: DR. AYON (FIONA CLEMENTS DO) Allergies and Home Medications Allergies Coded Allergies: naproxen (Verified Allergy, Severe, 03/11/19) ANAPHYLAXIS lisinopril (Verified Allergy, Unknown, 03/11/19) PT NOT SURE THAT HE IS ACTUALLY ALLERGIC, KEEPS BEING PUT ON RECORDS Home Medications Aspirin 81 Mg Tab.chew, 81 MG PO DAILY, (Reported) Clopidogrel Bisulfate 75 Mg Tablet, 75 MG PO DAILY, (Reported) Fluticasone/Salmeterol 12 Gm Hfa.aer.ad, 0 PUFF IH RTBID Prescribed by: YESSENIA SEGUNDO on 10/07/20 1033 Glipizide 10 Mg Tablet, 10 MG PO BID, (Reported) Metformin HCl 1,000 Mg Tablet, 1,000 MG PO BID, (Reported) Metoprolol Tartrate 100 Mg Tablet, 50 MG PO BID, (Reported) TAKES OF A 100MG TAB Prednisone 10 Mg Tab.ds.pk, 10 MG PO DAILY Take 6 tabs(60mg)daily,decrease by 1 tab(10mg)every other day. Prescribed by: YESSENIA SEGUNDO on 10/07/20 1033 Prednisone 20 Mg Tab, 20 MG PO DAILY Take early in the day with food or milk to avoid stomach upset or sleep disturbance. Prescribed by: FERDINAND SIMS on 11/19/20 0728 Rosuvastatin Calcium 40 Mg Tablet, 40 MG PO HS, (Reported) Tiotropium Gattman 4 Gm Mist.inhal, 2 PUFF IH DAILY, (Reported) Patient Home Medication List Home Medication List Reviewed: Yes (FERDINAND MEJIA MD) Review of Systems Review of Systems Constitutional: diaphoresis; No fever EENTM: no symptoms reported Respiratory: see HPI, cough, dyspnea on exertion, orthopnea, phlegm, short of breath Cardiovascular: no symptoms reported; No chest pain, No edema, No palpitations, No syncope, No vascular heart diseas Gastrointestinal: no symptoms reported; No nausea, No vomiting Genitourinary: no symptoms reported Musculoskeletal: no symptoms reported Skin: no symptoms reported Psychiatric/Neurological: No Symptoms Reported Hematologic/Lymphatic: No Symptoms Reported Immunological/Allergic: no symptoms reported (FIONA CLEMENTS DO) Past Dmphmhs-Ydtfcl-Xvvgxf Hx Past Med/Social Hx: Reviewed and Corrections made (FIONA CLEMENTS DO) Patient Social History Smoking Status: Current Everyday Smoker (1 PPD) Type Used: Cigarettes 2nd Hand Smoke Exposure: No Recent Hopitalizations: No (FIONA CLEMENTS DO) Immunizations Up To Date PED Vaccines UTD: No Date of Pneumonia Vaccine: Oct 07, 2017 (FIONA CLEMENTS DO) Past Medical History Surgeries: Yes (CARDIAC CATHS --STENTS X 4) Appendectomy, Cardiac, Coronary Stent, Tonsillectomy Respiratory: Yes (O2 AT HS AND PRN) COPD, Emphysema Currently Using CPAP: No Currently Using BIPAP: No Cardiac: Yes (IA X 2; CARDIAC STENTS X 4) Coronary Artery Disease, Heart Attack, High Cholesterol, Hypertension Neurological: No Genitourinary: No Gastrointestinal: No Musculoskeletal: No Endocrine: Yes Diabetes, Non-Insulin dep HEENT: No Cancer: No Psychosocial: No Integumentary: No Blood Disorders: No Adverse Reaction/Blood Tranf: No (FIONA CLEMENTS DO) Family Medical History Colon cancer 19 MOTHER Diabetes mellitus 19 FATHER Respiratory disorder 19 FATHER SOCIAL HISTORY: -ETOH--DENIES USE -DRUGS--DENIES USE -SMOKES 1 PPD PAST SURGICAL HISTORY: -CARDIAC CATHS--STENTS X 4. LAST CARDIAC CATH HERE 02/2019--NO INTERVENTION, PATENT STENTS, MILD DISEASE. 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 (FIONA CLEMENTS DO) Physical Exam Vital Signs - First Documented 11/19/20 05:37 Temp 36.7 Pulse 96 Resp 20 B/P (MAP) 150/107 (121) Pulse Ox 94 O2 Delivery Room Air (FERDINAND MEJIA MD) Capillary Refill : (FIONA CLEMENTS DO) Height: 5'10.00" Weight: 190lbs. 0.0oz. 86.762495ds; 28.69 BMI Method: General Appearance: WD/WN, mild distress (BUT ABLE TO TALK IN SHORT SENTENCES) Neck: normal inspection Respiratory: respiratory distress (MILD ), other (DECREASED AERATION IN ALL LUNG CONTRERAS; + ORTHOPNEA) Cardiovascular: regular rate, rhythm, no murmur Gastrointestinal: non tender, soft Extremities: normal inspection, no pedal edema, no calf tenderness, normal capillary refill Neurologic/Psychiatric: no motor/sensory deficits, alert, normal mood/affect, oriented x 3 Skin: normal color, diaphoresis ( AND WARM) (FIONA CLEMENTS DO) Focused Exam Lactate Level 11/19/20 05:43: Lactic Acid Level 1.70 (FERDINAND MEJIA MD) Lactic Acid Level Laboratory Tests Test 11/19/20 05:43 Lactic Acid Level 1.70 MMOL/L (0.50-2.00) (FERDINAND MEJIA MD) Progress/Results/Core Measures Suspected Sepsis SIRS Temperature: Pulse: Respiratory Rate: Laboratory Tests 11/19/20 05:43: Blood Pressure / Mean: Laboratory Tests 11/19/20 05:43: (FIONA CLEMENTS DO) Results/Orders Lab Results Laboratory Tests Test 11/19/20 05:43 Range/Units White Blood Count 9.1 4.3-11.0 10^3/uL Red Blood Count 5.35 4.30-5.52 10^6/uL Hemoglobin 15.6 13.3-17.7 g/dL Hematocrit 48 40-54 % Mean Corpuscular Volume 89 80-99 fL Mean Corpuscular Hemoglobin 29 25-34 pg Mean Corpuscular Hemoglobin Concent 33 32-36 g/dL Red Cell Distribution Width 12.8 10.0-14.5 % Platelet Count 199 130-400 10^3/uL Mean Platelet Volume 10.5 9.0-12.2 fL Immature Granulocyte % (Auto) 1 % Neutrophils (%) (Auto) 66 42-75 % Lymphocytes (%) (Auto) 22 12-44 % Monocytes (%) (Auto) 10 0-12 % Eosinophils (%) (Auto) 1 0-10 % Basophils (%) (Auto) 1 0-10 % Neutrophils # (Auto) 6.0 1.8-7.8 10^3/uL Lymphocytes # (Auto) 2.0 1.0-4.0 10^3/uL Monocytes # (Auto) 0.9 0.0-1.0 10^3/uL Eosinophils # (Auto) 0.1 0.0-0.3 10^3/uL Basophils # (Auto) 0.1 0.0-0.1 10^3/uL Immature Granulocyte # (Auto) 0.1 0.0-0.1 10^3/uL Erythrocyte Sedimentation Rate 2 0-30 MM/HR Prothrombin Time 12.8 12.2-14.7 SEC INR Comment 0.9 0.8-1.4 Activated Partial Thromboplast Time 32 24-35 SEC D-Dimer 0.36 0.00-0.49 UG/ML Sodium Level 139 135-145 MMOL/L Potassium Level 4.1 3.6-5.0 MMOL/L Chloride Level 104 98-107 MMOL/L Carbon Dioxide Level 20 L 21-32 MMOL/L Anion Gap 15 H 5-14 MMOL/L Blood Urea Nitrogen 17 7-18 MG/DL Creatinine 1.28 0.60-1.30 MG/DL Estimat Glomerular Filtration Rate 57 BUN/Creatinine Ratio 13 Glucose Level 161 H 70-105 MG/DL Lactic Acid Level 1.70 0.50-2.00 MMOL/L Calcium Level 9.4 8.5-10.1 MG/DL Corrected Calcium 8.5-10.1 MG/DL Magnesium Level 1.9 1.6-2.4 MG/DL Total Bilirubin 0.8 0.1-1.0 MG/DL Aspartate Amino Transf (AST/SGOT) 27 5-34 U/L Alanine Aminotransferase (ALT/SGPT) 55 0-55 U/L Alkaline Phosphatase 55 40-136 U/L Lactate Dehydrogenase 243 H 125-220 U/L Total Creatine Kinase 126 30-200 U/L Creatine Kinase MB 3.6 <6.6 NG/ML Myoglobin 56.2 10.0-92.0 NG/ML Troponin I < 0.028 <0.028 NG/ML C-Reactive Protein High Sensitivity 0.03 0.00-0.50 MG/DL B-Type Natriuretic Peptide 155.5 H <100.0 PG/ML Total Protein 7.7 6.4-8.2 GM/DL Albumin 4.7 H 3.2-4.5 GM/DL Procalcitonin 0.10 H <0.10 NG/ML Coronavirus 2019 (ADELITA) Negative Negative (FERDINAND MEJIA MD) Micro Results Microbiology 11/19/20 Influenza Types A,B Antigen (DARIANA) - Final, Complete (FERDINAND MEJIA MD) My Orders Orders - FERDINAND MEJIA MD Methylprednisolone Sod Succ (Solu-Medrol (11/19/20 07:08) (FERDINAND MEJIA MD) Medications Given in ED Current Medications Medications Dose Ordered Sig/Sophia Route Start Time Stop Time Status Last Admin Dose Admin Albuterol/ Ipratropium 4 gm STK-MED ONCE .ROUTE 11/19/20 05:48 11/19/20 05:54 DC 11/19/20 05:59 4 GM Methylprednisolone Sodium Succinate 40 mg STK-MED ONCE .ROUTE 11/19/20 07:08 11/19/20 07:14 DC 11/19/20 07:15 40 MG (FERDINAND MEJIA MD) Vital Signs/I&O 11/19/20 11/19/20 05:37 07:34 Temp 36.7 Pulse 96 84 Resp 20 20 B/P (MAP) 150/107 (121) 147/72 (121) Pulse Ox 94 94 O2 Delivery Room Air (FERDINAND MEJIA MD) Vital Signs/I&O Capillary Refill : (FIONA CLMEENTS DO) Progress Note : Progress Note PLACED IN ISOLATION ROOM PPE WORN AT ALL TIMES COVID-19 TESTING PERFORMED 604--CARE TURNED OVER TO DR. MEJIA, ALL STUDIES PENDING (FIONA CLEMENTS DO) Progress Note : Time: 07:29 Progress Note Patient felt significantly improved after the Combivent inhaler. Work-up was relatively unremarkable. This likely represents a simple COPD exacerbation. Vital signs were stable for discharge. Patient was concerned about hyperglycemia associated with steroid use. For this reason we are using decreased doses. He received Solu-Medrol 40 mg IV prior to discharge. I am prescribing prednisone 20 mg daily for 4 days. He asked for recommendations on dosing of his medications for better blood sugar control. I advised adding 500 mg of Metformin at noon and glipizide 5 mg at noon with lunch. I invited him to call back to the emergency room with questions or concerns regarding his blood sugars or other issues. (FERDINAND MEJIA MD) ECG Initial ECG Impression Date: Nov 19, 2020 Initial ECG Impression Time: 05:51 Initial ECG Rate: 89 Initial ECG Rhythm: Normal Sinus Initial ECG Intervals: Normal Initial ECG Impression: Normal Comment This rhythm with no ST elevation or depression. No abnormal intervals or axis deviation. (FERDINAND MEJIA MD) Diagnostic Imaging Diagonstic Imaging: Xray Plain Films/CT/US/NM/MRI: chest Comments Chest x-ray reviewed by me and report reviewed. See report below: NAME: SARAN PADILLA [facility] REC#: [id number] PT STATUS: REG ER : [id number] PHYSICIAN: FIONA CLEMENTS DO ADMIT DATE: 11/19/20/ER Draft Date of Exam:11/19/20 CHEST 1 VIEW, AP/PA ONLY EXAMINATION: Portable erect AP chest at 6:16 AM INDICATION: Dyspnea FINDINGS: The heart size is within normal limits and stable when compared to 10/06/2020. The chronic pulmonary changes seen on the prior study are again evident and essentially no different. There is no sign of failure, pneumonia or pleural effusion to indicate an acute cardiopulmonary abnormality. The mediastinum is not widened. The osseous structures are intact. IMPRESSION: There are chronic pulmonary changes present but there is no sign of an acute cardiopulmonary abnormality. Dictated on workstation # [id number] Dict: 02/703 Trans: 11/19/20 0712 MELISSA [id number] Interpreted by: LAURA WILL MD (FERDINAND MEJIA MD) Departure Impression Primary Impression: COPD exacerbation Additional Impression: Hyperglycemia due to diabetes mellitus Disposition: 01 HOME, SELF-CARE Condition: Improved Departure-Patient Inst. Decision time for Depature: 07:24 (FERDINAND MEJIA MD) Referrals: NO,LOCAL PHYSICIAN (PCP) Primary Care Physician ROYAL WARREN (Family) Primary Care Physician Patient Instructions: Chronic Obstructive Pulmonary Disease (COPD), Including Emphysema Add. Discharge Instructions: For short-term treatment of COPD exacerbation use prednisone as prescribed. Take your next dose late morning or early afternoon today. Additionally use the Combivent inhaler provided in the ER, 1 puff every 6 hours as needed until the exacerbation has subsided. Continue your other maintenance inhalers as previously directed. To help combat steroid-induced high blood sugars, you may increase your diabetes medications. Continue taking glipizide and Metformin with breakfast and supper as previously prescribed. You may add Metformin 500 mg with lunch and glipizide 5 with lunch. Monitor your blood sugars closely by checking them fasting in the morning and 2 hours after meals. Record these blood sugars to share with your primary care provider. Eat a low sugar, low carbohydrate diet. Call with questions or concerns. Return to the emergency room with worsening symptoms. Follow-up with Dr. Mcrae first thing on Saturday morning. Follow-up with your primary care provider soon as possible. Remain in quarantine until the results of your COVID-19 PCR test is known. Your rapid Covid and influenza screens were negative. All discharge instructions reviewed with patient and/or family. Voiced understanding. Scripts Prednisone (Prednisone) 20 Mg Tab 20 MG PO DAILY, #4 TAB Take early in the day with food or milk to avoid stomach upset or sleep disturbance. Prov: FERDINAND MEJIA MD 11/19/20 Copy Copies To 1: DAKOTA MCRAE LISA K DO Nov 19, 2020 06:03 FERDINAND MEJIA MD Nov 19, 2020 07:29
[2020-11-19 06:12] LABS: ALBUMIN 4.7 GM/DL (3.2-4.5); CHLORIDE 104 MMOL/L (98-107); POTASSIUM 4.1 MMOL/L (3.6-5.0); SODIUM 139 MMOL/L (135-145)
[2020-11-19 06:13] LABS: CALCIUM 9.4 MG/DL (8.5-10.1)
[2020-11-19 06:14] LABS: GLUCOSE 161 MG/DL (70-105); TOTAL PROTEIN 7.7 GM/DL (6.4-8.2)
[2020-11-19 06:15] LABS: CARBON DIOXIDE 20 MMOL/L (21-32)
[2020-11-19 06:16] LABS: BILIRUBIN,TOTAL 0.8 MG/DL (0.1-1.0)
[2020-11-19 06:18] LABS: ALKALINE PHOSPHATASE 55 U/L (40-136); CREATININE SERUM 1.28 MG/DL (0.60-1.30); GFR ESTIMATED 57
[2020-11-19 06:19] LABS: BUN/CREATININE RATIO 13
[2020-11-19 06:20] LABS: FIBRIN DEGRADATION PRODUCTS 0.36 UG/ML (0.00-0.49); INR 0.9 (0.8-1.4); PROTHROMBIN TIME PATIENT 12.8 SEC (12.2-14.7)
[2020-11-19 06:21] LABS: ALANINE AMINOTRANSFERASE 55 U/L (0-55); CREATINE KINASE 126 U/L (30-200); MAGNESIUM 1.9 MG/DL (1.6-2.4)
[2020-11-19 06:31] LABS: CREATINE KINASE MB 3.6 NG/ML (<6.6)
[2020-11-19 06:45] LABS: BASOPHILS # (AUTO) 0.1 10^3/uL (0.0-0.1); BASOPHILS % (AUTO) 1 % (0-10); EOSINOPHILS # (AUTO) 0.1 10^3/uL (0.0-0.3); EOSINOPHILS % (AUTO) 1 % (0-10); HEMATOCRIT 48 % (40-54); HEMOGLOBIN 15.6 g/dL (13.3-17.7); LYMPHOCYTES % (AUTO) 22 % (12-44); MEAN CORPUSCULAR HEMOGLOBIN 29 pg (25-34); MEAN CORPUSCULAR HGB CONC 33 g/dL (32-36); MEAN CORPUSCULAR VOLUME 89 fL (80-99); MEAN PLATELET VOLUME 10.5 fL (9.0-12.2); MONOCYTES # (AUTO) 0.9 10^3/uL (0.0-1.0); MONOCYTES % (AUTO) 10 % (0-12); NEUTROPHILS % (AUTO) 66 % (42-75); PLATELET COUNT 199 10^3/uL (130-400); WHITE BLOOD COUNT 9.1 10^3/uL (4.3-11.0)
[2020-11-19] MEDS ORDERED: methylPREDNISolone 40 MG/ML (Solu-MEDROL) VIAL ONE (07:08)
[2020-11-19 07:12] LABS: ERYTHROCYTE SEDIMENTATION RATE 2 MM/HR (0-30)
--- NOTE | 2020-11-19 07:13 | Diagnostic Imaging Report ---
EXAMINATION: Portable erect AP chest at 6:16 AM INDICATION: Dyspnea FINDINGS: The heart size is within normal limits and stable when compared to 10/06/2020. The chronic pulmonary changes seen on the prior study are again evident and essentially no different. There is no sign of failure, pneumonia or pleural effusion to indicate an acute cardiopulmonary abnormality. The mediastinum is not widened. The osseous structures are intact. IMPRESSION: There are chronic pulmonary changes present but there is no sign of an acute cardiopulmonary abnormality. Dictated by: Dictated on workstation # [id number]
[2020-11-19] MEDS ORDERED: PRD20T PO (07:28)
[2020-11-19 07:34] VITALS: BP 147/72
== END 2020-11-19 07:39 | disposition home or self-care (01) ==
LOC: EDUNIT# 05:25 → ER 05:28
DX: J44.1 Chronic obstructive pulmonary disease with (acute) exacerbation (principal); I25.2 Old myocardial infarction; E78.00 Pure hypercholesterolemia, unspecified; E11.65 Type 2 diabetes mellitus with hyperglycemia; I10 Essential (primary) hypertension; F17.210 Nicotine dependence, cigarettes, uncomplicated; Z88.8 Allergy status to other drugs, medicaments and biological substances; Z95.5 Presence of coronary angioplasty implant and graft; Z80.0 Family history of malignant neoplasm of digestive organs; Z83.3 Family history of diabetes mellitus; Z20.822 Contact with and (suspected) exposure to COVID-19; Z79.84 Long term (current) use of oral hypoglycemic drugs; Z79.52 Long term (current) use of systemic steroids; Z79.82 Long term (current) use of aspirin
CPT/HCPCS: 36415; 71045; 80053; 82550; 82553; 83605; 83615; 83735; 83874; 83880; 84145; 84484; 85025; 85379; 85610; 85652; 85730; 86141; 87040; 87635; 87804; 93041

== ENCOUNTER 2020-11-29 13:30 | Outpatient (CLI) | payer OTHER ==
[~2020-11-29 13:30] MED LIST changes: +PRD20T PO
== END 2020-11-29 14:00 | disposition home or self-care (01) ==
LOC: SLEEP 13:30
PROVIDERS: ATTEND Nurse Practitioner Family
DX: G47.30 Sleep apnea, unspecified (principal); G47.50 Parasomnia, unspecified; G47.10 Hypersomnia, unspecified
CPT/HCPCS: G0399

== ENCOUNTER → 2021-02-21 | Outpatient (CLI) | payer OTHER ==
[2021-02-21 09:20] LABS: ALBUMIN 4.3 GM/DL (3.2-4.5); BILIRUBIN,TOTAL 0.9 MG/DL (0.1-1.0); CALCIUM 9.3 MG/DL (8.5-10.1); CREATININE SERUM 1.41 MG/DL (0.60-1.30); POTASSIUM 4.1 MMOL/L (3.6-5.0); TOTAL PROTEIN 6.6 GM/DL (6.4-8.2)
== END ==
LOC: LAB 08:34
PROVIDERS: ATTEND Internal Medicine Cardiovascular Disease
DX: E78.2 Mixed hyperlipidemia (principal)
CPT/HCPCS: 36415; 80053; 80061

== ENCOUNTER → 2021-05-01 | Outpatient (CLI) | payer OTHER ==
[2021-05-01 08:12] LABS: CREATININE SERUM 1.83 MG/DL (0.60-1.30)
--- NOTE | 2021-05-01 09:31 | Diagnostic Imaging Report ---
CLINICAL INDICATION: Patient with COPD. Followup finding on prior CT scan of the chest. EXAM: Axial CT scan of the chest without contrast. Sagittal coronal reformatted images are created. COMPARISON: CT scan of the chest with contrast dated 10/06/2020. FINDINGS: Centrilobular emphysematous lung disease is again seen which is not significantly changed in interim. There is interval improved aeration right lung base with near resolution of previously seen parenchymal bands in right lung base. There is residual minimal atelectasis or scarring in right lung base and minimal subpleural atelectasis or scarring in the left lung base again noted. There is no pleural effusion pneumothorax. There is no developing soft tissue nodule seen. There is no mediastinal or axillary lymphadenopathy. Again seen minimal pericardial fluid. Atherosclerotic disease again seen. Coronary arteries, aortic arch and great vessels. Visualized upper abdominal structures show no significant interval abnormality. There are degenerative spurs involving the thoracic spine. IMPRESSION: 1: There is no significant change to the centrilobular emphysematous lung disease. There is no developing lung nodule or infiltrate. 2: There is no lymphadenopathy, pleural effusion or pneumothorax. 3: There is improved aeration of the right lung base with residual minimal bibasilar atelectasis or scarring. 4: The remainder of this exam shows no significant interval change compared to the prior study of comparison. Dictated by: Dictated on workstation # [id number]
== END ==
LOC: RAD 08:45
PROVIDERS: ATTEND Nurse Practitioner Family
DX: J43.2 Centrilobular emphysema (principal); R91.8 Other nonspecific abnormal finding of lung field
CPT/HCPCS: 36415; 71250; 82565; 84520

== ENCOUNTER → 2021-11-21 | Outpatient (CLI) | payer OTHER ==
--- NOTE | 2021-11-21 13:27 | Diagnostic Imaging Report ---
INDICATION: Hematuria. TECHNIQUE: Multiple contiguous axial images were obtained through the abdomen and pelvis without the use of intravenous contrast. Auto Exposure Controls were utilized during the CT exam to meet ALARA standards for radiation dose reduction. COMPARISON: There is no prior study for comparison. FINDINGS: Visualized portions of the lung bases show emphysematous changes and some right basilar scarring. There is no consolidation or pleural fluid. There is no free intraperitoneal air. The liver and gallbladder appear normal. The spleen, adrenals, and pancreas appear normal. Kidneys bilaterally show no radiopaque stones or hydronephrosis. There is no retroperitoneal mass or adenopathy. There is no ascites or abnormal fluid collection. There is atherosclerotic change of the aorta without evidence of aneurysm. Visualized bowel loops appear unremarkable. Urinary bladder appears grossly unremarkable without contrast. There is no pelvic mass or lymphadenopathy. IMPRESSION: No acute abnormality visualized in the abdomen or pelvis. No renal stones or hydronephrosis. Dictated by: Dictated on workstation # [id number]
== END ==
LOC: RAD 12:45
PROVIDERS: ATTEND Urology
DX: R31.9 Hematuria, unspecified (principal)
CPT/HCPCS: 74176

== ENCOUNTER 2022-03-14 09:42 | Emergency (ER) | payer OTHER ==
[~2022-03-14] VITALS: Ht 177 cm; Wt 70.0 kg
[2022-03-14 10:17] VITALS: BP_SYST 111; BP_SYST 125; BP_SYST 96; BP_DIAS 80; BP_DIAS 83; BP_DIAS 89
--- NOTE | 2022-03-14 10:28 | ED Cough/URI ---
General Chief Complaint: COVID19 Suspect/Confirmed Stated Complaint: COVID POSITIVE - SOA Nursing Triage Note: ARRIVED VIA AMB WITH COMPLAINTS OF INCREASED SOA TODAY. TESTED COVID POSTIVE LAST SATURDAY. Source: patient Exam Limitations: no limitations History of Present Illness Date Seen by Provider: Mar 14, 2022 Time Seen by Provider: 10:05 Initial Comments Patient to the ER by private conveyance with chief complaint that he has COVID- 19 on home test on , 6 days ago. He has COPD and has felt more short of breath even while at rest but especially with exertion. He is not feeling wheezy. He is on Spiriva and a inhaled steroid. He has an albuterol MDI but has not had to use it. [facility] [place] He is not having any stools or diarrhea but he does have decreased appetite, lightheadedness when he stands up and denies nausea. Allergies and Home Medications Allergies Coded Allergies: naproxen (Verified Allergy, Severe, 03/11/19) ANAPHYLAXIS lisinopril (Verified Allergy, Unknown, 03/11/19) PT NOT SURE THAT HE IS ACTUALLY ALLERGIC, KEEPS BEING PUT ON RECORDS Patient Home Medication List Home Medication List Reviewed: Yes Aspirin (Aspirin) 81 Mg Tab.chew, 81 MG PO DAILY, (Reported) Entered as Reported by: BRIE EDMOND on 03/11/19718 Clopidogrel Bisulfate (Plavix) 75 Mg Tablet, 75 MG PO DAILY, (Reported) Entered as Reported by: BRIE EDMOND on 03/11/19718 Fluticasone/Salmeterol (Advair Hfa 115-21 Mcg Inhaler) 12 Gm Hfa.aer.ad, 0 PUFF IH RTBID Prescribed by: YESSENIA SEGUNDO on 10/07/20 1033 Glipizide (Glipizide) 10 Mg Tablet, 10 MG PO BID, (Reported) Entered as Reported by: INO STACY on 10/05/20 1343 Metformin HCl (Metformin HCl) 1,000 Mg Tablet, 1,000 MG PO BID, (Reported) Entered as Reported by: INO STACY on 10/05/20 1343 Metoprolol Tartrate (Metoprolol Tartrate) 100 Mg Tablet, 50 MG PO BID, (Reported) Entered as Reported by: INO STACY on 10/05/20 1343 Ondansetron (Ondansetron Odt) 4 Mg Tab.rapdis, 4 MG PO Q6H PRN for NAUSEA/VOMITING Prescribed by: HOSSEIN JARA on 03/14/22 1200 Prednisone (Prednisone) 10 Mg Tab.ds.pk, 10 MG PO DAILY Prescribed by: YESSENIA SEGUNDO on 10/07/20 1033 Prednisone (Prednisone) 20 Mg Tab, 20 MG PO DAILY Prescribed by: FERDINAND SIMS on 11/19/20 0728 Rosuvastatin Calcium (Rosuvastatin Calcium) 40 Mg Tablet, 40 MG PO HS, (Reported) Entered as Reported by: INO STACY on 10/05/20 1343 Tiotropium [place] (Spiriva Respimat 2.5MCG/ACTUATION) 4 Gm Mist.inhal, 2 PUFF IH DAILY, (Reported) Entered as Reported by: BRIE EDMOND on 03/11/19 0719 Review of Systems Review of Systems Constitutional: No chills, No diaphoresis EENTM: No ear discharge, No ear pain Respiratory: No cough, No orthopnea; short of breath; No wheezing Cardiovascular: No chest pain, No palpitations Gastrointestinal: No abdominal pain, No constipation, No diarrhea, No nausea Genitourinary: No discharge, No dysuria All Other Systems Reviewed Negative Unless Noted: Yes Past Ojrcbsm-Vneswj-Qnazgr Hx Patient Social History Tobacco Use?: No Smokeless Tobacco Frequency: Former User Use of E-Cig and/or Vaping dev: No Substance use?: No Alcohol Use?: No Immunizations Up To Date PED Vaccines UTD: No COVID19 Vaccine Digital Artist: YOLIE Past Medical History Surgeries: Yes (CARDIAC CATHS --STENTS X 4) Appendectomy, Cardiac, Coronary Stent, Tonsillectomy Respiratory: Yes (O2 AT HS AND PRN) COPD, Emphysema Currently Using CPAP: No Currently Using BIPAP: No Cardiac: Yes ([place] X 2; CARDIAC STENTS X 4) Coronary Artery Disease, Heart Attack, High Cholesterol, Hypertension Neurological: No Genitourinary: No Gastrointestinal: No Musculoskeletal: No Endocrine: Yes Diabetes, Non-Insulin dep HEENT: No Cancer: No Psychosocial: No Integumentary: No Blood Disorders: No Adverse Reaction/Blood Tranf: No Family Medical History Colon cancer 19 MOTHER Diabetes mellitus 19 FATHER Respiratory disorder 19 FATHER SOCIAL HISTORY: -ETOH--DENIES USE -DRUGS--DENIES USE -SMOKES 1 PPD PAST SURGICAL HISTORY: -CARDIAC CATHS--STENTS X 4. LAST CARDIAC CATH HERE 02/2019--NO INTERVENTION, PATENT STENTS, MILD DISEASE. EF 40% -APPENDECTOMY -TONSILLECTOMY ADDITIONAL PAST MEDICAL HISTORY: -SC IN 2010--3 STENTS PLACED -[place] IN 2016 WITH CARDIOGENIC SHOCK--1 STENT PLACED. Physical Exam Vital Signs - First Documented 03/14/22 09:42 Temp 36.4 Pulse 83 Resp 16 B/P (MAP) 155/85 (108) Pulse Ox 98 O2 Delivery Room Air Capillary Refill : Less Than 3 Seconds Height: 5'10.00" Weight: 190lbs. 0.0oz. 86.706133bm; 22.00 BMI Method: General Appearance: WD/WN, no apparent distress, thin Eyes: Bilateral Eye Normal Inspection, Bilateral Eye PERRL, Bilateral Eye EOMI HEENT: PERRL/EOMI, normal ENT inspection, pharynx normal Neck: full range of motion, supple Respiratory: lungs clear, normal breath sounds, no respiratory distress (100% on room air nonlabored breathing without wheezing retractions or accessory muscle use), no accessory muscle use Cardiovascular: normal peripheral pulses, regular rate, rhythm Gastrointestinal: normal bowel sounds, non tender, soft Extremities: non-tender, normal inspection, normal capillary refill Neurologic/Psychiatric: alert, normal mood/affect, oriented x 3 Skin: normal color, warm/dry Progress/Results/Core Measures Suspected Sepsis SIRS Temperature: Pulse: 83 Respiratory Rate: 16 Laboratory Tests 03/14/22 10:44: White Blood Count 6.1 Blood Pressure 155 /85 Mean: 108 Laboratory Tests 03/14/22 10:44: Creatinine 1.96H, Platelet Count 224 Results/Orders Lab Results Laboratory Tests Test 03/14/22 10:44 Range/Units White Blood Count 6.1 4.3-11.0 10^3/uL Red Blood Count 5.19 4.30-5.52 10^6/uL Hemoglobin 14.7 13.3-17.7 g/dL Hematocrit 44 40-54 % Mean Corpuscular Volume 85 80-99 fL Mean Corpuscular Hemoglobin 28 25-34 pg Mean Corpuscular Hemoglobin Concent 33 32-36 g/dL Red Cell Distribution Width 13.4 10.0-14.5 % Platelet Count 224 130-400 10^3/uL Mean Platelet Volume 10.0 9.0-12.2 fL Immature Granulocyte % (Auto) 1 % Neutrophils (%) (Auto) 63 42-75 % Lymphocytes (%) (Auto) 22 12-44 % Monocytes (%) (Auto) 12 0-12 % Eosinophils (%) (Auto) 2 0-10 % Basophils (%) (Auto) 0 0-10 % Neutrophils # (Auto) 3.9 1.8-7.8 10^3/uL Lymphocytes # (Auto) 1.4 1.0-4.0 10^3/uL Monocytes # (Auto) 0.8 0.0-1.0 10^3/uL Eosinophils # (Auto) 0.1 0.0-0.3 10^3/uL Basophils # (Auto) 0.0 0.0-0.1 10^3/uL Immature Granulocyte # (Auto) 0.0 0.0-0.1 10^3/uL Sodium Level 137 135-145 MMOL/L Potassium Level 3.9 3.6-5.0 MMOL/L Chloride Level 101 98-107 MMOL/L Carbon Dioxide Level 23 21-32 MMOL/L Anion Gap 13 5-14 MMOL/L Blood Urea Nitrogen 24 H 7-18 MG/DL Creatinine 1.96 H 0.60-1.30 MG/DL Estimat Glomerular Filtration Rate 37 BUN/Creatinine Ratio 12 Glucose Level 162 H 70-105 MG/DL Calcium Level 9.8 8.5-10.1 MG/DL My Orders Orders - HOSSEIN JARA Orthostatic Vital Signs (Adult (03/14/22 10:19) Basic Metabolic Panel (03/14/22 10:19) Ed Iv/Invasive Line Start (03/14/22 10:28) Lactated Ringers (Lr 1000 Ml Iv Solution (03/14/22 10:30) Cbc With Automated Diff (03/14/22 10:28) Ed Iv/Invasive Line Start (03/14/22 12:10) Lactated Ringers (Lr 1000 Ml Iv Solution (03/14/22 12:15) Lactated Ringers (Lr 1000 Ml Iv Solution (03/14/22 12:15) Medications Given in ED Current Medications Medications Dose Ordered Sig/Sophia Route Start Time Stop Time Status Last Admin Dose Admin Lactated Ringer's 1,000 ml @ 0 mls/hr Q0M ONCE IV 03/14/22 10:30 03/14/22 10:31 DC 03/14/22 10:43 1,000 MLS/HR Lactated Ringer's 1,000 ml @ 0 mls/hr Q0M ONCE IV 03/14/22 12:15 03/14/22 12:16 DC 03/14/22 12:17 1,000 MLS/HR Vital Signs/I&O 03/14/22 03/14/22 03/14/22 09:42 10:17 13:06 Temp 36.4 Pulse 83 76 61 82 82 Resp 16 16 B/P (MAP) 155/85 (108) 125/89 (101) 152/84 111/80 (90) 96/83 (87) Pulse Ox 98 99 O2 Delivery Room Air Room Air Capillary Refill : Less Than 3 Seconds Blood Pressure Mean: 108 Progress Note #1: Time: 10:26 Progress Note We will obtain Ortho's get a CBC to rule out anemia and BMP to check his kidney function. He is not meeting inclusion criteria for monoclonal infusion however he would be able to get the Paxil of it. Despite him being out of range in terms of time because he has COPD I think it would still be mukherjee and the patient agrees with doing it. He is aware that it is authorized through an emergency use authorization act by [facility]. We will give him a liter of lactated Ringer's since he is positive with his orthostats. It is apparent by the patient's history, vital signs and clinical exam that what he is calling shortness of breath seems to actually be lightheadedness as it occurs after getting up from a lying position to a standing position for orthostats and is echoed in his precipitous drop in blood pressure. Most likely reason for orthostasis in this gentleman given his history and examination would be dehydration. Progress Note #2: Time: 11:58 Progress Note The patient's kidney function will preclude him from taking Paxil of it. He is not having any significant respiratory symptoms. We will give him a liter of fluids and if his orthostatic vital signs have resolved then he can go home. If not we will give him another liter. Departure Impression Primary Impression: COVID-19 Additional Impressions: Dehydration determined by examination Orthostatic hypotension Disposition: 01 HOME, SELF-CARE Condition: Stable Departure-Patient Inst. Decision time for Depature: 11:59 Referrals: NO,LOCAL PHYSICIAN (PCP/Family) Primary Care Physician Patient Instructions: Dehydration, Adult (DC), COVID-19 Home Care/Discharge Add. Discharge Instructions: Drink plenty of fluids to stay hydrated. Stay to the heat for the next day or 2. Tylenol as necessary for body aches headache or fever. Ondansetron 1 tablet every 6 hours as needed for nausea or vomiting. Promptly return to the ER for significantly worsening of symptoms especially oxygen saturation that goes below 90% while at rest. All discharge instructions reviewed with patient and/or family. Voiced understanding. Scripts Ondansetron (Ondansetron Odt) 4 Mg Tab.rapdis 4 MG PO Q6H PRN for NAUSEA/VOMITING, #8 TAB 0 Refills Prov: HOSSEIN JARA 03/14/22 HOSSEIN JARA Mar 14, 2022 10:28
[2022-03-14] MEDS ORDERED: LACTATED RINGERS 1,000 ML IV ONE ×3 (10:30→12:15)
[2022-03-14 10:51] LABS: BASOPHILS % (AUTO) 0 % (0-10); EOSINOPHILS # (AUTO) 0.1 10^3/uL (0.0-0.3); EOSINOPHILS % (AUTO) 2 % (0-10); HEMATOCRIT 44 % (40-54); HEMOGLOBIN 14.7 g/dL (13.3-17.7); LYMPHOCYTES # (AUTO) 1.4 10^3/uL (1.0-4.0); LYMPHOCYTES % (AUTO) 22 % (12-44); MEAN CORPUSCULAR HEMOGLOBIN 28 pg (25-34); MEAN CORPUSCULAR HGB CONC 33 g/dL (32-36); MEAN CORPUSCULAR VOLUME 85 fL (80-99); MONOCYTES # (AUTO) 0.8 10^3/uL (0.0-1.0); MONOCYTES % (AUTO) 12 % (0-12); NEUTROPHILS # (AUTO) 3.9 10^3/uL (1.8-7.8); NEUTROPHILS % (AUTO) 63 % (42-75); PLATELET COUNT 224 10^3/uL (130-400); WHITE BLOOD COUNT 6.1 10^3/uL (4.3-11.0)
[2022-03-14 11:05] LABS: POTASSIUM 3.9 MMOL/L (3.6-5.0)
[2022-03-14 11:06] LABS: CALCIUM 9.8 MG/DL (8.5-10.1)
[2022-03-14 11:11] LABS: CREATININE SERUM 1.96 MG/DL (0.60-1.30)
[2022-03-14] MEDS ORDERED: ONDA4TAB11 PO (12:00)
[2022-03-14 13:06] VITALS: BP 152/84
== END 2022-03-14 13:06 | disposition home or self-care (01) ==
LOC: EDUNIT# 09:42 → ER 09:44
DX: U07.1 COVID-19 (principal); I95.1 Orthostatic hypotension; E86.0 Dehydration; J43.9 Emphysema, unspecified; Z99.81 Dependence on supplemental oxygen; Z87.891 Personal history of nicotine dependence; Z73.0 Burn-out
CPT/HCPCS: 36415; 80048; 85025

== ENCOUNTER 2022-04-06 22:49 | Observation (INO) | payer OTHER ==
[~2022-04-06] VITALS: Ht 177.8 cm; Wt 73.3 kg
[~2022-04-06 22:49] MED LIST changes: +ONDA4TAB11 PO
[2022-04-06 23:12] LABS: BASOPHILS % (AUTO) 1 % (0-10); EOSINOPHILS # (AUTO) 0.1 10^3/uL (0.0-0.3); EOSINOPHILS % (AUTO) 1 % (0-10); HEMATOCRIT 41 % (40-54); HEMOGLOBIN 13.4 g/dL (13.3-17.7); LYMPHOCYTES % (AUTO) 13 % (12-44); MEAN CORPUSCULAR HEMOGLOBIN 29 pg (25-34); MEAN CORPUSCULAR HGB CONC 33 g/dL (32-36); MEAN CORPUSCULAR VOLUME 86 fL (80-99); MEAN PLATELET VOLUME 9.8 fL (9.0-12.2); MONOCYTES # (AUTO) 0.5 10^3/uL (0.0-1.0); MONOCYTES % (AUTO) 6 % (0-12); NEUTROPHILS # (AUTO) 6.4 10^3/uL (1.8-7.8); NEUTROPHILS % (AUTO) 79 % (42-75); PLATELET COUNT 144 10^3/uL (130-400); WHITE BLOOD COUNT 8.1 10^3/uL (4.3-11.0)
[2022-04-06 23:19] LABS: ALBUMIN 3.9 GM/DL (3.2-4.5); CHLORIDE 102 MMOL/L (98-107); POTASSIUM 4.2 MMOL/L (3.6-5.0); SODIUM 136 MMOL/L (135-145)
--- NOTE | 2022-04-06 23:19 | ED General ---
General Chief Complaint: General Problems/Pain Stated Complaint: WEAKNESS Source of Information: Patient Exam Limitations: No Limitations History of Present Illness Date Seen by Provider: Apr 06, 2022 Time Seen by Provider: 22:52 Initial Comments Here with report of feeling like he is get a pass out. States he is weak and was trying to make it to the couch when he became too weak and laid on the floor. EMS was summoned. He is noted to be initially hypotensive in the 80s. Denies breathing problems or chest pain. Does have history of diabetes, COPD and previous [place]. Reports taking meds as directed. Blood sugar 160s per EMS. Reports appetite okay and drinking fluids but states he drinks soda pop and probably does not drink enough water. EMS did initiate IV and IV fluids and he states he actually feels better now. Had similar episode a couple weeks ago and was found to be dehydrated and had fluids given and was better per his report. Denies fever or chills. Is vaccinated for COVID. Did have COVID about a month ago. Denies diarrhea. Timing/Duration: 1 Hour Severity: Moderate Modifying Factors: improves with Rest Associated Systoms: No Chest Pain, No Cough, No Fever/Chills, No Nausea/Vomiting, No Shortness of Air; Weakness Allergies and Home Medications Allergies Coded Allergies: naproxen (Verified Allergy, Severe, 03/11/19) ANAPHYLAXIS lisinopril (Verified Allergy, Unknown, 03/11/19) PT NOT SURE THAT HE IS ACTUALLY ALLERGIC, KEEPS BEING PUT ON RECORDS Patient Home Medication List Home Medication List Reviewed: Yes Aspirin (Aspirin) 81 Mg Tab.chew, 81 MG PO DAILY, (Reported) Entered as Reported by: BRIE EDMOND on 03/11/19 0719 Clopidogrel Bisulfate (Plavix) 75 Mg Tablet, 75 MG PO DAILY, (Reported) Entered as Reported by: BRIE EDMOND on 03/11/19 0719 Fluticasone/Salmeterol (Advair Hfa 115-21 Mcg Inhaler) 12 Gm Hfa.aer.ad, 0 PUFF IH RTBID Prescribed by: YESSENIA CROFT on 10/07/20 1033 Glipizide (Glipizide) 10 Mg Tablet, 10 MG PO BID, (Reported) Entered as Reported by: INO STACY on 10/05/20 1343 Metformin HCl (Metformin HCl) 1,000 Mg Tablet, 1,000 MG PO BID, (Reported) Entered as Reported by: INO STACY on 10/05/20 1343 Metoprolol Tartrate (Metoprolol Tartrate) 100 Mg Tablet, 50 MG PO BID, (Reported) Entered as Reported by: INO STACY on 10/05/20 1343 Ondansetron (Ondansetron Odt) 4 Mg Tab.rapdis, 4 MG PO Q6H PRN for NAUSEA/VOMITING Prescribed by: HOSSEIN JARA on 03/14/22 1200 Prednisone (Prednisone) 10 Mg Tab.ds.pk, 10 MG PO DAILY Prescribed by: YESSENIA CROFT on 10/07/20 1033 Prednisone (Prednisone) 20 Mg Tab, 20 MG PO DAILY Prescribed by: FERDINAND SIMS on 11/19/20 0728 Rosuvastatin Calcium (Rosuvastatin Calcium) 40 Mg Tablet, 40 MG PO HS, (Reported) Entered as Reported by: INO STACY on 10/05/20 1343 Tiotropium [place] (Spiriva Respimat 2.5MCG/ACTUATION) 4 Gm Mist.inhal, 2 PUFF IH DAILY, (Reported) Entered as Reported by: BRIE EDMOND on 03/11/19 0719 Review of Systems Review of Systems Constitutional: see HPI; No chills, No fever; weakness EENTM: No nose congestion, No throat pain Respiratory: No cough, No short of breath Cardiovascular: No chest pain, No palpitations Gastrointestinal: No abdominal pain, No nausea, No vomiting Genitourinary: no symptoms reported Musculoskeletal: No back pain, No muscle pain; muscle weakness Skin: no symptoms reported Psychiatric/Neurological: Denies Anxiety, Denies Headache; Weakness All Other Systems Reviewed Negative Unless Noted: Yes Past Fkpxzxe-Htngsu-Qnnpzc Hx Patient Social History Tobacco Use?: No Substance use?: No Alcohol Use?: No Immunizations Up To Date PED Vaccines UTD: No Past Medical History Surgeries: Yes (CARDIAC CATHS --STENTS X 4) Appendectomy, Cardiac, Coronary Stent, Tonsillectomy Respiratory: Yes (O2 AT HS AND PRN) COPD, Emphysema Currently Using CPAP: No Currently Using BIPAP: No Cardiac: Yes ([place] X 2; CARDIAC STENTS X 4) Coronary Artery Disease, Heart Attack, High Cholesterol, Hypertension Neurological: No Genitourinary: No Gastrointestinal: No Musculoskeletal: No Endocrine: Yes Diabetes, Non-Insulin dep HEENT: No Cancer: No Psychosocial: No Integumentary: No Blood Disorders: No Adverse Reaction/Blood Tranf: No Family Medical History Reviewed Nursing Family Hx Colon cancer 19 MOTHER Diabetes mellitus 19 FATHER Respiratory disorder 19 FATHER SOCIAL HISTORY: -ETOH--DENIES USE -DRUGS--DENIES USE -SMOKES 1 PPD PAST SURGICAL HISTORY: -CARDIAC CATHS--STENTS X 4. LAST CARDIAC CATH HERE 02/2019--NO INTERVENTION, PATENT STENTS, MILD DISEASE. EF 40% -APPENDECTOMY -TONSILLECTOMY ADDITIONAL PAST MEDICAL HISTORY: -[place] IN 2010--3 STENTS PLACED -[place] IN 2015 WITH CARDIOGENIC SHOCK--1 STENT PLACED. Physical Exam Vital Signs Vital Signs - First Documented 04/06/22 22:51 Temp 36.2 Pulse 92 Resp 21 B/P (MAP) 125/85 (98) Pulse Ox 93 Capillary Refill : Height, Weight, BMI Height: 5'10.00" Weight: 190lbs. 0.0oz. 86.064054gc; 22.00 BMI Method: General Appearance: No Apparent Distress, Thin HEENT: PERRL/EOMI, Pharynx Normal Neck: Non Tender, Supple Respiratory: Lungs Clear, Normal Breath Sounds Cardiovascular: Regular Rate, Rhythm, No Murmur Gastrointestinal: Non Tender, Soft Extremity: Normal Range of Motion, Non Tender Neurologic/Psychiatric: Alert, Oriented x3 Skin: Normal Color, Warm/Dry Progress/Results/Core Measures Suspected Sepsis SIRS Temperature: Pulse: Respiratory Rate: Laboratory Tests 04/06/22 23:00: White Blood Count 8.1 Blood Pressure / Mean: Laboratory Tests 04/06/22 23:00: Creatinine 1.63H, Platelet Count 144, Total Bilirubin 1.1H Results/Orders Lab Results Laboratory Tests Test 04/06/22 23:00 04/07/22 00:15 Range/Units White Blood Count 8.1 4.3-11.0 10^3/uL Red Blood Count 4.69 4.30-5.52 10^6/uL Hemoglobin 13.4 13.3-17.7 g/dL Hematocrit 41 40-54 % Mean Corpuscular Volume 86 80-99 fL Mean Corpuscular Hemoglobin 29 25-34 pg Mean Corpuscular Hemoglobin Concent 33 32-36 g/dL Red Cell Distribution Width 14.2 10.0-14.5 % Platelet Count 144 130-400 10^3/uL Mean Platelet Volume 9.8 9.0-12.2 fL Immature Granulocyte % (Auto) 1 % Neutrophils (%) (Auto) 79 H 42-75 % Lymphocytes (%) (Auto) 13 12-44 % Monocytes (%) (Auto) 6 0-12 % Eosinophils (%) (Auto) 1 0-10 % Basophils (%) (Auto) 1 0-10 % Neutrophils # (Auto) 6.4 1.8-7.8 10^3/uL Lymphocytes # (Auto) 1.0 1.0-4.0 10^3/uL Monocytes # (Auto) 0.5 0.0-1.0 10^3/uL Eosinophils # (Auto) 0.1 0.0-0.3 10^3/uL Basophils # (Auto) 0.0 0.0-0.1 10^3/uL Immature Granulocyte # (Auto) 0.0 0.0-0.1 10^3/uL D-Dimer > 20.00 H 0.00-0.49 UG/ML Sodium Level 136 135-145 MMOL/L Potassium Level 4.2 3.6-5.0 MMOL/L Chloride Level 102 98-107 MMOL/L Carbon Dioxide Level 20 L 21-32 MMOL/L Anion Gap 14 5-14 MMOL/L Blood Urea Nitrogen 16 7-18 MG/DL Creatinine 1.63 H 0.60-1.30 MG/DL Estimat Glomerular Filtration Rate 46 BUN/Creatinine Ratio 10 Glucose Level 166 H 70-105 MG/DL Calcium Level 9.1 8.5-10.1 MG/DL Corrected Calcium 9.2 8.5-10.1 MG/DL Magnesium Level 1.2 L 1.6-2.4 MG/DL Total Bilirubin 1.1 H 0.1-1.0 MG/DL Aspartate Amino Transf (AST/SGOT) 15 5-34 U/L Alanine Aminotransferase (ALT/SGPT) 17 0-55 U/L Alkaline Phosphatase 39 L 40-136 U/L Troponin I < 0.028 <0.028 NG/ML C-Reactive Protein High Sensitivity 0.03 0.00-0.50 MG/DL Total Protein 6.5 6.4-8.2 GM/DL Albumin 3.9 3.2-4.5 GM/DL My Orders Orders - ELOISA JACKSON MD Ekg Tracing (04/06/22:) Monitor-Rhythm Ecg Trace Only (04/06/22 23:) Chest 1 View, Ap/Pa Only (04/06/22:) Cbc With Automated Diff (04/06/22:) Comprehensive Metabolic Panel (04/06/22:) Hs C Reactive Protein (04/06/22:) Fibrin Degradation Products (04/06/22:) Magnesium (04/06/22:) Troponin I [place] (04/06/22:) Ua Culture If Indicated (04/06/22:) Enoxaparin Injection (Lovenox Injection) (04/07/22 00:45) Vital Signs/I&O 04/06/22 22:51 Temp 36.2 Pulse 92 Resp 21 B/P (MAP) 125/85 (98) Pulse Ox 93 Capillary Refill : Progress Note : Progress Note Seen and evaluated. IV by EMS. Normal saline 1 L bolus initiated by EMS and now will be completed. We will check labs, urine, EKG and chest x-ray. Monitor patient. He states he is actually feeling better now. 0032: D-dimer is significantly elevated at greater than 20. Patient's heart rate remains in the upper 90s. Given his recent COVID infection, I have significant concerns related to blood clots. Reviewing his labs shows his creatinine is elevated in the 1.6 range with GFR at 46. He would benefit from CT scan but would benefit from hydration prior to see if creatinine improves and see if CT scan or angiogram for PE study would be possible. I did discuss the case with Dr. Croft and she agrees. We will initiate Lovenox 1 mg/kg subcu now and continue that every 12 hours while continuing to hydrate the patient. She will see him in the morning and determine further testing. I did discuss with him regarding staying and he is in agreement with admission and actually feels more comfortable due to the syncopal episode at the home. Patient's spouse is here now and does report that the patient did have full syncopal episode. She was able to lay him down on the floor and he did not hit his head but his episode was more significant than the patient initially reported. Admit, observation status. Patient and family agree with plan. We will use sliding scale insulin for blood sugar control. Chest x-ray does show bilateral basilar atelectasis versus infiltrate. CRP is low and white count is normal without fever. I do favor this to be atelectasis and chronic lung disease versus bacterial infiltrate. [facility] He would prefer to stay here and will notify [facility] within 72 hours per the rules. Patient was in full support of this. ECG Initial ECG Impression Date: Apr 06, 2022 Initial ECG Impression Time: 23:17 Initial ECG Rate: 94 Initial ECG Rhythm: Normal Sinus Comment Sinus rhythm with normal but leftward axis. No evidence of ST elevation [place]. Similar to previous of 11/19/2020. Interpreted by me. Diagnostic Imaging Diagonstic Imaging: Xray Plain Films/CT/US/NM/MRI: chest Comments Bilateral basilar atelectasis Departure Communication (Admissions) Time/Spoke to Admitting Phy: 00:32 Impression Primary Impression: Elevated d-dimer Additional Impression: Syncope Qualified Codes: R55 - Syncope and collapse Disposition: ADMITTED INPATIENT Condition: Stable Admissions Decision to Admit Reason: Admit from ER (General) Decision to Admit/Date: Apr 07, 2022 Time/Decision to Admit Time: 00:32 Departure-Patient Inst. Referrals: NO,LOCAL PHYSICIAN (PCP/Family) Primary Care Physician ELOISA JACKSON MD Apr 06, 2022 23:19
[2022-04-06 23:21] LABS: CALCIUM 9.1 MG/DL (8.5-10.1)
[2022-04-06 23:22] LABS: GLUCOSE 166 MG/DL (70-105); TOTAL PROTEIN 6.5 GM/DL (6.4-8.2)
[2022-04-06 23:23] LABS: BILIRUBIN,TOTAL 1.1 MG/DL (0.1-1.0); CARBON DIOXIDE 20 MMOL/L (21-32)
[2022-04-06 23:25] LABS: ALKALINE PHOSPHATASE 39 U/L (40-136); CREATININE SERUM 1.63 MG/DL (0.60-1.30); GFR ESTIMATED 46
[2022-04-06 23:27] LABS: BUN/CREATININE RATIO 10
[2022-04-06 23:28] LABS: ALANINE AMINOTRANSFERASE 17 U/L (0-55); MAGNESIUM 1.2 MG/DL (1.6-2.4)
[2022-04-07] VITALS (7 sets, daily range): BP systolic 105–124; BP diastolic 63–75
[2022-04-07 00:21] LABS: BILIRUBIN,URINE NEGATIVE (NEGATIVE); CLARITY,URINE CLEAR; COLOR,URINE YELLOW; GLUCOSE, URINE (UA) 1+ (NEGATIVE); KETONES,URINE NEGATIVE (NEGATIVE); LEUKOCYTE ESTERASE ,URINE NEGATIVE (NEGATIVE); NITRITE,URINE NEGATIVE (NEGATIVE); PROTEIN,URINE 2+ (NEGATIVE)
[2022-04-07] MEDS ORDERED: ENOXAPARIN 80 MG/0.8 ML (LOVENOX) SYR SC ONE (00:45)
[2022-04-07 00:49] LABS: BACTERIA,URINE NEGATIVE /HPF; RBC,URINE 0-2 /HPF
[2022-04-07] MEDS ORDERED: NS IV 1000 ML 1,000 ML ONE (01:37)
[2022-04-07] MEDS: NS IV 1000 ML 1,000 ML IV SCH ×3 (01:40→16:50)
[2022-04-07] MEDS ORDERED: FLUT1BLS8 IH (05:25)
[2022-04-07] MEDS ORDERED: MONT-40 PO (05:29)
[2022-04-07 05:50] LABS: POTASSIUM 4.3 MMOL/L (3.6-5.0)
[2022-04-07 05:51] LABS: CALCIUM 8.6 MG/DL (8.5-10.1)
[2022-04-07 05:55] LABS: CREATININE SERUM 1.44 MG/DL (0.60-1.30)
[2022-04-07] MEDS: inSUlin ASPART (NovoLOG) 1 UNIT/0.01 ML (CHARGE PER UNIT) SC SCH ×4 (06:11→20:45)
--- NOTE | 2022-04-07 06:43 | Diagnostic Imaging Report ---
Indication: Hypotension, dyspnea. Comparison: 11/19/2020. Discussion: Single portable upright view of the chest was obtained. Underlying changes of chronic lung disease are stable. There is new consolidation within the bilateral lung bases, likely pneumonia. Normal heart size. No pleural fluid or pneumothorax. No osseous abnormality. Impression: 1. New bibasilar consolidation, likely pneumonia. Dictated by: Dictated on workstation # [id number]
--- NOTE | 2022-04-07 10:18 | History & Physical-Hospitalist ---
History of Present Illness HPI/Chief Complaint Patient is 66-year-old with past medical history of coronary artery disease, hypertension, diabetes who presented to the emergency department due to syncope. He reports he was feeling well up until yesterday when he felt "sick as a dog. "He reports he was nauseous and diaphoretic. He got chills and was achy. He tried to lay down without relief and then called for his 's help. He is very dizzy and then the next thing he remembers is he was slumped over at the kitchen table. He decided to seek evaluation in the emergency department at that time. He stood up to walk and passed out again. In the emergency department he was found to have an elevated D-dimer but also elevated creatinine and so was admitted for IV fluids for CTA in the morning. He reports feeling much better today but does have some knee pain from his fall. Source: patient Date Seen 04/07/22 Time Seen by a Provider: 09:45 Attending Physician No,Local Physician PCP Admitting Physician: Yessenia Croft MD Attending Physician: Yessenia Croft MD Referring Physician Date of Admission Apr 06, 2022 at 22:50 Home Medications & Allergies Home Medications Reviewed patient Home Medication Reconciliation performed by pharmacy medication reconciliations computer aided design technician and/or nursing. Patients Allergies have been reviewed. Allergies Allergies Coded Allergies naproxen (Verified Allergy, Severe, 03/11/19) ANAPHYLAXIS lisinopril (Verified Allergy, Unknown, 03/11/19) PT NOT SURE THAT HE IS ACTUALLY ALLERGIC, KEEPS BEING PUT ON RECORDS Past Krfutvb-Mylrrp-Nddzor Hx Patient Social History Marrital Status: Employed/Student: retired Tobacco Use?: No Smoking Status: Former Smoker Use of E-Cig and/or Vaping dev: No Substance use?: No Substance type: Caffeine Alcohol Use?: No Pt feels they are or have been: No Immunizations Up To Date First/Initial COVID19 Vaccinat: UNKNOWN DATE Second COVID19 Vaccination Reid: UNKNOWN DATE Tetanus Booster (TDap): More Than 5 Years Hepatitis A: Yes Hepatitis B: Yes PED Vaccines UTD: No Date of Pneumonia Vaccine: Oct 07, 2017 Current Status Advance Directives: No Communicates: Verbally Primary Language: Yoruba Preferred Spoken Language: Yoruba Is interpretation needed?: No Sensory deficits: Vision impairment Implanted or Applied Medical D: Stents Past Medical History Surgeries: Appendectomy, Cardiac, Coronary Stent, Tonsillectomy COPD, Emphysema Currently Using CPAP: No Currently Using BIPAP: No Coronary Artery Disease, Heart Attack, High Cholesterol, Hypertension Diabetes, Non-Insulin dep Blood Disorders: No Adverse Reaction/Blood Tranf: No Family Medical History Reviewed Nursing Family Hx Colon cancer 19 MOTHER Diabetes mellitus 19 FATHER Respiratory disorder 19 FATHER SOCIAL HISTORY: -ETOH--DENIES USE -DRUGS--DENIES USE -SMOKES 1 PPD PAST SURGICAL HISTORY: -CARDIAC CATHS--STENTS X 4. LAST CARDIAC CATH HERE 02/2019--NO INTERVENTION, PATENT STENTS, MILD DISEASE. EF 40% -APPENDECTOMY -TONSILLECTOMY ADDITIONAL PAST MEDICAL HISTORY: -PR IN 2010--3 STENTS PLACED -PR IN 2015 WITH CARDIOGENIC SHOCK--1 STENT PLACED. Review of Systems Constitutional: chills, diaphoresis; No fever; malaise Respiratory: cough; No short of breath Cardiovascular: No chest pain, No edema; Hx of Intervention, syncope Gastrointestinal: abdominal pain Genitourinary: no symptoms reported Musculoskeletal: joint pain Skin: no symptoms reported Psychiatric/Neurological: No Symptoms Reported Physical Exam Physical Exam Vital Signs Vital Signs - First Documented 04/06/22 04/07/22 22:51 01:35 Temp 36.2 Pulse 92 Resp 21 B/P (MAP) 125/85 (98) Pulse Ox 93 O2 Delivery Room Air Capillary Refill : Height, Weight, BMI Height: 5'10.00" Weight: 190lbs. 0.0oz. 86.228567ef; 23.18 BMI Method: General Appearance: No Apparent Distress, WD/WN HEENT: PERRL/EOMI, Moist Mucous Membranes Neck: Normal Inspection, Supple; No JVD Respiratory: Lungs Clear, No Accessory Muscle Use, No Respiratory Distress; No Crackles, No Wheezing Cardiovascular: Regular Rate, Rhythm, No JVD, No Murmur Gastrointestinal: Normal Bowel Sounds, Non Tender, Soft Extremity: Normal Capillary Refill, No Calf Tenderness, No Pedal Edema, Swelling (around left knee) Neurologic/Psychiatric: Alert, Oriented x3, Normal Mood/Affect Skin: Normal Color, Warm/Dry Results Results/Procedures Labs Laboratory Tests 04/06/22 23:00 04/07/22 05:23 04/08/22 08:25 Patient resulted labs reviewed. Imaging: Reviewed Imaging Report Imaging [facility]. [place], [place] NAME: SARAN PADILLA [facility] REC#: [id number] PT STATUS: ADM Jose : 1955 PHYSICIAN: LEOISA JACKSON MD ADMIT DATE: 04/06/22 Draft Date of Exam:04/06/22 CHEST 1 VIEW, AP/PA ONLY Indication: Hypotension, dyspnea. Comparison: 11/19/2020. Discussion: Single portable upright view of the chest was obtained. Underlying changes of chronic lung disease are stable. There is new consolidation within the bilateral lung bases, likely pneumonia. Normal heart size. No pleural fluid or pneumothorax. No osseous abnormality. Impression: 1. New bibasilar consolidation, likely pneumonia. Dictated on workstation # [id number] Dict: 04/07/22 0640 Trans: 04/07/22 0643 MELISSA [id number] Interpreted by: LEOBARDO MOODY MD Electronically signed by: Assessment/Plan Admission Diagnosis Syncope Admission Status: Observation Assessment and Plan Syncope Recent COVID dx (2 weeks ago) Elevated d-dimer Creatinine improved CTA ordered Acute on CKD baseline creatinine around 1.4 Was 1.63 yesterday and now back to baseline Continue IVF following contrast HTN CAD Continue home meds DVT ppx: Lovenox Diagnosis/Problems Diagnosis/Problems (1) Syncope Status: Acute Qualifiers: Syncope type: unspecified Qualified Codes: R55 - Syncope and collapse (2) Elevated d-dimer Status: Acute YESSENIA CROFT MD Apr 07, 2022 10:18
[2022-04-07] MEDS ORDERED: NS 100 ML (IVPB) BAG IV NR (10:30)
[2022-04-07] MEDS ORDERED: HOLD METFORMIN - RECEIVED CONTRAST 20 ML VIAL IV SCH (10:30)
[2022-04-07] MEDS ORDERED: CATHETER FLUSH 10 ML SYR IV PRN (10:30)
[2022-04-07] MEDS ORDERED: IOHEXOL 350 MG/ML 100 ML (OMNIPAQUE 350) VIAL IV NR (10:30)
--- NOTE | 2022-04-07 11:22 | Diagnostic Imaging Report ---
Procedure: CT angiography of the chest with contrast. Technique: Multiple contiguous axial images were obtained through the chest after uneventful bolus administration of intravenous contrast. 3D reconstructed CTA MIP acquisitions were also performed. Auto Exposure Controls were utilized during the CT exam to meet ALARA standards for radiation dose reduction. Indication: Syncope with recent COVID pneumonia, dyspnea. Comparison: 05/01/2021. Discussion: Normal heart size. No pulmonary embolus identified. The thoracic aorta is normal in caliber and configuration. No pleural or pericardial fluid. Emphysema is again noted, moderate to severe. Bibasilar consolidation is consistent with pneumonia, bacterial versus viral. No pathologic-appearing lymph nodes identified. Multiple collateral branches opacified within the left chest suggesting high-grade subclavian vein stenosis, likely incidental. The visualized upper abdomen is unremarkable. No osseous abnormality identified. Impression: 1. No pulmonary embolus identified. 2. Bibasilar consolidation, consistent with pneumonia. Dictated by: Dictated on workstation # [id number]
[2022-04-07] MEDS: ENOXAPARIN 80 MG/0.8 ML (LOVENOX) SYR SC SCH (12:40)
--- NOTE | 2022-04-07 13:56 | Diagnostic Imaging Report ---
Indication: Fall with left knee pain and swelling. Comparison: None. Discussion: Three views of left knee were obtained. Large effusion. Anterior soft tissue swelling. Moderately advanced degenerative disease. Irregularity along the articular surface of the medial and lateral femoral condyle could be seen with age-indeterminate fracture. This could be further evaluated with MRI as indicated. No dislocation. Impression: 1. Large left knee effusion with anterior soft tissue swelling. 2. There is irregularity of the articular surfaces of the medial and lateral femoral condyles which could be seen with age-indeterminate small fractures. This could also be due to long-standing osteoarthritis. Cross-sectional imaging could further evaluate as indicated. Dictated by: Dictated on workstation # [id number]
[2022-04-07] MEDS: glipiZIDE 5 MG (GLUCOTROL) TAB PO SCH (16:50)
[2022-04-07] MEDS ORDERED: HYDROcodone/APAP 5 MG/325 MG (LORTAB) TAB ONE (19:31)
[2022-04-07] MEDS: ROSUVASTATIN 20 MG (CRESTOR) TABLET PO SCH (19:35)
[2022-04-07] MEDS: meTOprolol TARTRATE 50 MG (LOPRESSOR) TAB PO SCH ×2 (19:35→19:36)
[2022-04-07] MEDS: HYDROcodone/APAP 5 MG/325 MG (LORTAB) TAB PO PRN (19:35)
[2022-04-07] MEDS: MONTELUKAST 10 MG (SINGULAIR) TAB PO SCH (19:35)
[2022-04-07] MEDS: UMECLIDINIUM BROMIDE (INCRUSE ELLIPTA) 7'S IH SCH (19:50)
[2022-04-07] MEDS ORDERED: NON-FORMULARY MEDICATION 1 EA EA (Glipizide 10 MG) PO SCH (21:00)
[2022-04-07] MEDS ORDERED: NON-FORMULARY MEDICATION 1 EA EA (Rosuvastatin Calcium 40 MG) PO SCH (21:00)
[2022-04-07] MEDS ORDERED: NON-FORMULARY MEDICATION 1 EA EA (Metoprolol Tartrate 50 MG) PO SCH (21:00)
[2022-04-08] MEDS: ENOXAPARIN 80 MG/0.8 ML (LOVENOX) SYR SC SCH (00:20)
[2022-04-08] MEDS: HYDROcodone/APAP 5 MG/325 MG (LORTAB) TAB PO PRN ×5 (00:20→18:18)
[2022-04-08 03:42] VITALS: BP 123/74
[2022-04-08] MEDS: NS IV 1000 ML 1,000 ML IV SCH ×2 (04:15→11:34)
[2022-04-08] MEDS: inSUlin ASPART (NovoLOG) 1 UNIT/0.01 ML (CHARGE PER UNIT) SC SCH ×4 (05:28→20:53)
[2022-04-08] MEDS: glipiZIDE 5 MG (GLUCOTROL) TAB PO SCH ×2 (05:29→17:00)
[2022-04-08] MEDS: UMECLIDINIUM BROMIDE (INCRUSE ELLIPTA) 7'S IH SCH (07:01)
[2022-04-08 07:31] VITALS: BP 145/74
[2022-04-08] MEDS: CLOPIDOGREL 75 MG (PLAVIX) TABLET PO SCH (08:24)
[2022-04-08] MEDS: ASPIRIN 81 MG CHEW (CHILDREN'S ASA) PO SCH (08:24)
[2022-04-08] MEDS: meTOprolol TARTRATE 50 MG (LOPRESSOR) TAB PO SCH ×2 (08:25→19:29)
[2022-04-08 08:47] LABS: POTASSIUM 3.6 MMOL/L (3.6-5.0)
[2022-04-08 08:48] LABS: CALCIUM 8.7 MG/DL (8.5-10.1)
[2022-04-08 08:52] LABS: CREATININE SERUM 1.25 MG/DL (0.60-1.30)
[2022-04-08] MEDS ORDERED: NON-FORMULARY MEDICATION 1 EA EA (Tiotropium Bromide (Spiriva Respimat 2.5MCG/ACTUATION) 2 IH SCH (09:00)
[2022-04-08] MEDS ORDERED: fentaNYL INJ 100 MCG/2 ML AMP ONE (09:28)
[2022-04-08] MEDS ORDERED: fentaNYL INJ 100 MCG/2 ML AMP IVP PRN (09:30)
[2022-04-08 11:41] VITALS: BP 155/72
--- NOTE | 2022-04-08 11:41 | Progress Note - Hospitalist ---
Subjective HPI/CC On Admission Date Seen by Provider: Apr 08, 2022 Patient is 66-year-old with past medical history of coronary artery disease, hypertension, diabetes who presented to the emergency department due to syncope. He reports he was feeling well up until yesterday when he felt "sick as a dog. "He reports he was nauseous and diaphoretic. He got chills and was achy. He tried to lay down without relief and then called for his 's help. He is very dizzy and then the next thing he remembers is he was slumped over at the kitchen table. He decided to seek evaluation in the emergency department at that time. He stood up to walk and passed out again. In the emergency department he was found to have an elevated D-dimer but also elevated creatinine and so was admitted for IV fluids for CTA in the morning. He reports feeling much better today but does have some knee pain from his fall. Subjective/Events-last exam Pt reports feeling better but having worsening knee pain. Thinks swelling is worse as well and having difficulty walking due to this. Objective Exam Vital Signs Vital Signs Date Time Temp Pulse Resp B/P (MAP) Pulse Ox O2 Delivery O2 Flow Rate FiO2 04/08/22 08:19 Room Air 04/08/22 07:31 37.1 89 18 145/74 (97) 94 Capillary Refill : General Appearance: No Apparent Distress, WD/WN Cardiovascular: Regular Rate, Rhythm, No Murmur Gastrointestinal: Normal Bowel Sounds, Soft Extremity: Swelling (left knee) Neurologic/Psychiatric: Alert, Oriented x3 Results/Procedures Lab Laboratory Tests 04/08/22 08:25 Patient resulted labs reviewed. Imaging: Reviewed Imaging Report Radiology [facility], [place] NAME: SARAN PADILLA [facility] REC#: [id number] PT STATUS: ADM Jose : 1955 PHYSICIAN: YESSENIA SEGUNDO MD ADMIT DATE: 04/06/22 Signed Date of Exam:04/07/22 KNEE, LEFT, 3 VIEWS Indication: Fall with left knee pain and swelling. Comparison: None. Discussion: Three views of left knee were obtained. Large effusion. Anterior soft tissue swelling. Moderately advanced degenerative disease. Irregularity along the articular surface of the medial and lateral femoral condyle could be seen with age-indeterminate fracture. This could be further evaluated with MRI as indicated. No dislocation. Impression: 1. Large left knee effusion with anterior soft tissue swelling. 2. There is irregularity of the articular surfaces of the medial and lateral femoral condyles which could be seen with age-indeterminate small fractures. This could also be due to long-standing osteoarthritis. Cross-sectional imaging could further evaluate as indicated. Dictated by: Dictated on workstation # [id number] Dict: 04/07/22 1352 Trans: 04/07/22 1619 [facility] [id number] Interpreted by: LEOBARDO MOODY MD Electronically signed by: LEOBARDO MOODY MD 04/07/22 7899 Assessment/Plan Assessment and Plan Assess & Plan/Chief Complaint Syncope Recent COVID dx (2 weeks ago) CTA without evidence of PE shows basilar pneumonia consistent with recent COVID infection Likely due to hypovolemia, resolved with fluids Knee pain, effusion Knee effusion on XR ortho consulted, appreciate recs Discussed with Ortho, Dr Adams, who states he'd be hesitant to drain due to antiplatelets hydrocodone for pain PT ordered Acute on CKD acute componenent resolved DC IVF HTN CAD Continue home meds DVT ppx: Lovenox Diagnosis/Problems Diagnosis/Problems (1) Syncope Status: Acute Qualifiers: Syncope type: unspecified Qualified Codes: R55 - Syncope and collapse (2) Elevated d-dimer Status: Acute YESSENIA SEGUNDO MD Apr 08, 2022 11:41
[2022-04-08] MEDS ORDERED: HYDROcodone/APAP 5 MG/325 MG (LORTAB) TAB ONE (12:43)
[2022-04-08] MEDS ORDERED: HYDROcodone/APAP 5 MG/325 MG (LORTAB) TAB PO PRN (15:30)
[2022-04-08 15:53] VITALS: BP 109/71
[2022-04-08] MEDS: MONTELUKAST 10 MG (SINGULAIR) TAB PO SCH (19:29)
[2022-04-08] MEDS: ROSUVASTATIN 20 MG (CRESTOR) TABLET PO SCH (19:29)
[2022-04-08 20:12] VITALS: BP 143/73
[2022-04-08 23:11] VITALS: BP 119/69
[2022-04-09 04:20] VITALS: BP 129/75
[2022-04-09] MEDS: inSUlin ASPART (NovoLOG) 1 UNIT/0.01 ML (CHARGE PER UNIT) SC SCH ×2 (06:34→11:22)
[2022-04-09] MEDS: HYDROcodone/APAP 5 MG/325 MG (LORTAB) TAB PO PRN (06:35)
[2022-04-09] MEDS: glipiZIDE 5 MG (GLUCOTROL) TAB PO SCH (06:35)
[2022-04-09 07:17] VITALS: BP 123/73
[2022-04-09] MEDS: UMECLIDINIUM BROMIDE (INCRUSE ELLIPTA) 7'S IH SCH (07:37)
[2022-04-09] MEDS: meTOprolol TARTRATE 50 MG (LOPRESSOR) TAB PO SCH (09:23)
[2022-04-09] MEDS: ASPIRIN 81 MG CHEW (CHILDREN'S ASA) PO SCH (09:23)
[2022-04-09] MEDS: CLOPIDOGREL 75 MG (PLAVIX) TABLET PO SCH (09:23)
--- NOTE | 2022-04-09 09:38 | Diagnostic Imaging Report ---
PROCEDURE: US Venous Lower Ext Alvarez. TECHNIQUE: Multiple Real-time grayscale images were obtained over the lower extremities in various projections, bilaterally. Additional duplex Doppler and color Doppler images were also obtained. INDICATION: Lower extremity pain and edema. Elevated D-dimer. COMPARISON: None. FINDINGS: The right common femoral vein, femoral vein, deep femoral vein, and popliteal vein are normal in appearance. These vessels show normal compressibility, color flow, and Doppler augmentation. The visualized deep calf veins demonstrate no distinct intraluminal thrombus. The left common femoral, greater saphenous, and profunda femoris veins are patent without evidence of filling defect. These veins demonstrated normal compressibility. The remainder of the left lower extremity venous system was not evaluated. IMPRESSION: 1. No sonographic evidence of deep venous thrombosis in the right lower extremity. 2. No deep vein thrombus within the left common femoral, profunda femoris, and greater saphenous veins. The remainder of the left lower extremity venous system was not evaluated on this exam. Dictated by: Dictated on workstation # [id number]
--- NOTE | 2022-04-09 10:11 | Consultation - Ortho ---
Consult - Ortho Subjective Date of Exam 04/09/22 Chief Complaint Left Knee Swelling HPI/Events since last exam Fall on Saturday night, admitted due to syncope, later noted painful swollen left knee, extensive surgical history on knee, states knee has improved significantly from pain standpoint in the last 24 hours, has been up with therapy, wants to go home Medical, Surgical History see admit Social History see admit Family History see admit Review of Systems not obtained Allergies: Coded Allergies: naproxen (Verified Allergy, Severe, 03/11/19) ANAPHYLAXIS lisinopril (Verified Allergy, Unknown, 03/11/19) PT NOT SURE THAT HE IS ACTUALLY ALLERGIC, KEEPS BEING PUT ON RECORDS Home Meds Active Scripts Ondansetron (Ondansetron Odt) 4 Mg Tab.rapdis, 4 MG PO Q6H PRN for NAUSEA/VOMITING, #8 TAB 0 Refills Prov:HOSSEIN JARA 03/14/22 Reported Medications Montelukast Sodium (Montelukast Sodium) 10 Mg Tablet, 10 MG PO HS, TAB 04/07/22 Fluticasone Propion/Salmeterol (Wixela 100-50 Inhub) Unknown Strength Blst.w.d ev, IH BID 04/07/22 Metoprolol Tartrate (Metoprolol Tartrate) 100 Mg Tablet, 50 MG PO BID, TAB TAKES OF A 100MG TAB 10/05/20 Rosuvastatin Calcium (Rosuvastatin Calcium) 40 Mg Tablet, 40 MG PO HS, TAB 10/05/20 Glipizide (Glipizide) 10 Mg Tablet, 10 MG PO BID, TAB 10/05/20 Metformin HCl (Metformin HCl) 1,000 Mg Tablet, 1000 MG PO BID, TAB 10/05/20 Clopidogrel Bisulfate (Plavix) 75 Mg Tablet, 75 MG PO DAILY, TAB 03/11/19 Aspirin (Aspirin) 81 Mg Tab.chew, 81 MG PO DAILY, TAB 03/11/19 Tiotropium Kelford (Spiriva Respimat 2.5MCG/ACTUATION) 4 Gm Mist.inhal, 2 PUFF IH DAILY, INH 03/11/19 Discontinued Scripts Prednisone (Prednisone) 20 Mg Tab, 20 MG PO DAILY, #4 TAB Take early in the day with food or milk to avoid stomach upset or sleep disturbance. Prov:FERDINAND MEJIA MD 11/19/20 Prednisone (Prednisone) 10 Mg Tab.ds.pk, 10 MG PO DAILY, #42 EA Take 6 tabs(60mg)daily,decrease by 1 tab(10mg)every other day. Prov:YESSENIA SEGUNDO MD 10/07/20 Fluticasone/Salmeterol (Advair Hfa 115-21 Mcg Inhaler) 12 Gm Hfa.aer.ad, 0 PUFF IH RTBID, #1 INH Prov:YESSENIA SEGUNDO MD 10/07/20 Objective Exam Left Knee: Multiple surgical scars, large effusion, extends knee fully, flexes 100 degrees Vital Signs Vital Signs Date Time Temp Pulse Resp B/P (MAP) Pulse Ox O2 Delivery O2 Flow Rate FiO2 04/09/22 08:00 Room Air 04/09/22 07:37 95 Room Air 04/09/22 07:17 36.7 98 18 123/73 (90) 94 Room Air 04/09/22 04:20 37.6 98 20 129/75 (93) 95 Room Air 04/08/22 23:11 37.6 86 20 119/69 (86) 95 Room Air 04/08/22 20:12 37.4 100 20 143/73 (96) 97 Room Air 04/08/22 19:30 Room Air 04/08/22 15:53 36.3 79 20 109/71 (84) 96 Room Air 04/08/22 11:41 36.8 85 18 155/72 (99) 95 Room Air I & O 04/09/22 07:00 Intake Total 2240 ml Balance 2240 ml Lab Results Laboratory Tests 04/08/22 11:19: Glucometer 141H 04/08/22 15:22: Glucometer 121H 04/08/22 19:36: Glucometer 138H 04/09/22 06:31: Glucometer 123H Assessment and Plan Assessment Left Knee Effusion Problem List Left Knee Effusion Plan Improving, continue to observe for now If stops improvement, discussed coming to office to have knee drained possibly as soon as AM Final Diagonsis Left Knee Effusion Level of the visit: Level 3 GUILLE CHARLES MD Apr 09, 2022 10:11
--- NOTE | 2022-04-09 10:16 | Physical Therapy Evaluation ---
PT Evaluation-General Medical Diagnosis Admission Date Apr 06, 2022 at 22:50 Medical Diagnosis: Syncope, Fall, Left knee pain Onset Date: Apr 07, 2022 Therapy Diagnosis Therapy Diagnosis: Gait deficit, left knee pain Height/Weight Height (Feet): 5 Height (Inches): 10.00 Weight (Pounds): 190 Weight (Ounces): 0.0 Precautions Precautions/Isolations: Fall Prevention, Standard Precautions Weight Bear Status Right Lower Extremity: Right Full Weight Bearing Left Lower Extremity: Left Full Weight Bearing Patient unable to tolerate weight bearing in Left LE, no WB restrictions. Referral Physician: Dr. Croft Reason for Referral: Evaluation/Treatment Medical History Reviewed History: Yes Social History Home: [facility] Current Living Status: Entry Into Home: Stairs With Railing PT Steps Into Home: 4 PT Steps Inside Home: 15 Lives with ex-, but she is upstairs and he never goes up there. Prior Prior Level of Function SCALE: Activities may be completed with or without assistive devices. 3-Gpyragwrdl-tjzlazl completes the activity by him/herself with no assistance from a helper. 5-Set-up or Clean-up Assistance-helper sets up or cleans up; patient completes activity. Hawkeye assists only prior to or following the activity. 4-Supervision or Touching Assistance-helper provides verbal cues and/or touching/steadying and/or contact guard assistance as patient completes activity. Assistance may be provided throughout the activity or intermittently. 3-Partial/Moderate Assistance-helper does LESS THAN HALF the effort. Hawkeye lifts, holds or supports trunk or limbs, but provides less than half the effort. 2-Substantial/Maximal Assistance-helper does MORE THAN HALF the effort. Hawkeye lifts or holds trunk or limbs and provides more than half the effort. 2-Bgbitwcsb-retqek does ALL the effort. Patient does none of the effort to complete the activity. Or, the assistance of 2 or more helpers is required for the patient to complete the activity. If activity was not attempted, code reason: 7-Patient Refused. 9-Not Applicable-not attempted and the patient did not perform the activity before the current illness, exacerbation or injury. 10-Not Attempted due to Environmental Limitations-(lack of equipment, weather restraints, etc.). 88-Not Attempted due to Medical Conditions or Safety Concerns. Bed Mobility: 6 Transfers (B,C,W/C): 6 Gait: 6 Stairs: 6 Indoor Mobility (Ambulation): Independent Stairs: Independent Prior Devices Use: None PT Evaluation-Current Subjective Patient lying supine in bed upon PT arrival, agreeable to treatment. Reports his left knee is feeling much better today and feels like the swelling has decreased greatly. Objective Patient Orientation: Person, Place, Time, Situation ROM/Strength ROM Lower Extremities Left knee extension lacks 20 degrees and flexion to 75 degrees with AROM. Right LE WFLs all planes Strength Lower Extremities Right LE 5/5 all planes; left knee flexion and extension 3-/5 Sensory Vision: Functional Hearing: Functional Sensation Right Lower Extremit: Intact Sensation Left Lower Extremity: Intact Transfers Roll Left to Right (QC): 6 Sit to Lying (QC): 6 Lying to Sitting/Side of Bed(Q: 6 Sit to Stand (QC): 6 Chair/Brt-ac-Qbviq Xfer(QC): 6 Gait Does the Patient Walk?: Yes Mode of Locomotion: Walk Anticipated Mode of Locomotion: Walk Walk 10 feet (QC): 4 Walk 50 ft with 2 Turns(QC): 4 Walk 150 ft (QC): 4 Distance: 180 feet Gait Assistive Device: FWW Stairs #of Steps: 4 1 Step (curb) (QC): 3 4 Steps (QC): 3 Balance Sitting Static: Normal Sitting Dynamic: Normal Standing Static: Fair Standing Dynamic: Poor Assessment/Needs Patient tolerated treatment fair. Demonstrates good UE strength and uses FWW well for gait, however left LE unable to tolerate any weight bearing. Patient performs all bed mobility and transfers with SBA. Patient ambulates 90 feet to the stairs, ascends/descends 4 steps with right hand rail ascending. Patient attempts to put weight through left LE during stance however requires min A to avoid falling. Patient ambulates 90 feet back to his room with FWW with SBA. Patient in bed post treatment with all needs met,nursing notified. Rehab Potential: Fair Equipment Needs FWW- nurse notified PT Plan Problem List Problem List: Activity Tolerance, Functional Strength, Safety, Balance, Gait, Transfer, Bed Mobility, ROM Treatment/Plan Treatment Plan: Discontinue PT Treatment Duration: Apr 09, 2022 Frequency: Safety Risks/Education Patient Education: Gait Training, Transfer Techniques, Steps Teaching Recipient: Patient Teaching Methods: Demonstration, Discussion Response to Teaching: Verbalize Understanding, Return Demonstration Time/GCodes Time In: 941 Time Out: 1000 Total Billed Treatment Time: 19 Total Billed Treatment Visit, MINO MURRY PT Apr 09, 2022 10:15
[2022-04-09 11:11] VITALS: BP 110/56
[2022-04-09 12:09] VITALS: BP 110/56
--- NOTE | 2022-04-09 17:18 | Discharge Summary ---
Discharge Summary Hospital Course Problems/Dx: (1) Syncope Status: Acute Qualifiers: Qualified Codes: R55 - Syncope and collapse (2) Elevated d-dimer Status: Acute (3) Effusion of left knee Status: Acute Hospital Course Date of Admission: Apr 06, 2022 at 22:50 Admission Diagnosis : Syncope Family Physician/Provider: LizaLocal Physician Date of Discharge: 04/09/22 Discharge Diagnosis: Syncope due to orthostatic hypotension, dehydration, elevated d-dimer, left knee effusion Hospital Course: Alex Moe is a 66 year old male who was admitted after a syncopal episode. He had an KETAN on CKD3. He had a significantly elevated d-dimer. He underwent CT which showed no PE. He also had a lower extremity ultrasound that was negative. He had no evidence of cardiac abnormalities. His syncopal episode was thought to be due to orthostatic hypotension which resolved with IV fluids. He was also found to have a left knee effusion. Orthopedic surgery was consulted and recommended watchful waiting. He was instructed to follow up at Dr. Adams's office on for arthrocentesis if his knee pain and swelling persists or worsens. He was recommended to obtain a walked, but said he has a cane and crutches at home already and will use those. He was discharged home in stable condition. He will call the [facility] tomorrow to set up a follow with his PCP. Labs and Pending Lab Test: Laboratory Tests 04/08/22 19:36: Glucometer 138H 04/09/22 06:31: Glucometer 123H 04/09/22 11:14: Glucometer 183H Home Meds Active Ondansetron Odt (Ondansetron) 4 Mg Tab.rapdis 4 Mg PO Q6H PRN Reported Montelukast Sodium 10 Mg Tablet 10 Mg PO HS Wixela 100-50 Inhub (Fluticasone Propion/Salmeterol) Unknown Strength Blst.w.dev Unknown Dose IH BID Metoprolol Tartrate 100 Mg Tablet 50 Mg PO BID TAKES OF A 100MG TAB Rosuvastatin Calcium 40 Mg Tablet 40 Mg PO HS Glipizide 10 Mg Tablet 10 Mg PO BID Metformin HCl 1,000 Mg Tablet 1,000 Mg PO BID Plavix (Clopidogrel Bisulfate) 75 Mg Tablet 75 Mg PO DAILY Aspirin 81 Mg Tab.chew 81 Mg PO DAILY Spiriva Respimat 2.5MCG/ACTUATION (Tiotropium [place]) 4 Gm Mist.inhal 2 Puff IH DAILY Assessment/Pt Instructions See instructions Discharge Planning: <30 minutes discharge planning Discharge Instructions Discharge Diet: No Restrictions Activity as Tolerated: Yes Consultations Orthopedic surgery Discharge Physical Examination Vital Signs Vital Signs Date Time Temp Pulse Resp B/P (MAP) Pulse Ox O2 Delivery O2 Flow Rate FiO2 04/09/22 12:09 37.3 87 20 110/56 95 Room Air General Appearance: No Apparent Distress, WD/WN Respiratory: Lungs Clear, Normal Breath Sounds, No Respiratory Distress Cardiovascular: Regular Rate, Rhythm, No Edema, No Murmur Gastrointestinal: Normal Bowel Sounds, Non Tender, Soft Extremity: Normal Inspection, No Pedal Edema Skin: Normal Color, Warm/Dry Neurologic/Psychiatric: Alert, Normal Mood/Affect Allergies: Coded Allergies: naproxen (Verified Allergy, Severe, 03/11/19) ANAPHYLAXIS lisinopril (Verified Allergy, Unknown, 03/11/19) PT NOT SURE THAT HE IS ACTUALLY ALLERGIC, KEEPS BEING PUT ON RECORDS Discharge Summary Date of Admission Apr 06, 2022 at 22:50 Date of Discharge Apr 09, 2022 at 13:10 Discharge Date: Apr 09, 2022 Discharge Time: 1400 Admission Diagnosis Syncope Discharge Diagnosis Syncope due to orthostatic hypotension (1) Syncope Status: Acute Qualifiers: Qualified Codes: R55 - Syncope and collapse (2) Elevated d-dimer Status: Acute (3) Effusion of left knee Status: Acute JOHANNY BARRERA MD Apr 09, 2022 17:18
== END 2022-04-09 11:59 | disposition home or self-care (01) ==
LOC: ER 22:49 → EDUNIT# 22:49 → 4TH 22:50
PROVIDERS: ADMIT Family Medicine; ATTEND Family Medicine
DX: I95.1 Orthostatic hypotension (principal); M25.462 Effusion, left knee; R79.1 Abnormal coagulation profile; E11.22 Type 2 diabetes mellitus with diabetic chronic kidney disease; I12.9 Hypertensive chronic kidney disease with stage 1 through stage 4 chronic kidney disease, or unspecified chronic kidney disease; N18.9 Chronic kidney disease, unspecified; I25.10 Atherosclerotic heart disease of native coronary artery without angina pectoris; W19.XXXA Unspecified fall, initial encounter; Z87.891 Personal history of nicotine dependence; Z79.82 Long term (current) use of aspirin; Z79.899 Other long term (current) drug therapy; Z79.02 Long term (current) use of antithrombotics/antiplatelets; Z79.84 Long term (current) use of oral hypoglycemic drugs; Z95.5 Presence of coronary angioplasty implant and graft
CPT/HCPCS: 36415; 71045; 71275; 73562; 80048; 80053; 81000; 82947; 83735; 84484; 85025; 85379; 86141; 93005; 93041; 93970; 94640; 94760; 96361; 96372; 96375; G0378

== ENCOUNTER → 2022-06-05 | Outpatient (CLI) | payer OTHER ==
[~2022-06-05] MED LIST changes: +FLUT1BLS8 IH; +MONT-40 PO; +RT-ALBUTEROL SULF 2.5 MG/3 ML PRE-MIX VIAL INH ONE
== END ==
LOC: RT 08:55
PROVIDERS: ATTEND Internal Medicine Critical Care Medicine
DX: Z01.818 Encounter for other preprocedural examination (principal); J44.9 Chronic obstructive pulmonary disease, unspecified
CPT/HCPCS: 94060; 94726; 94729

== ENCOUNTER 2022-10-09 06:35 | Outpatient (CLI) | payer OTHER ==
[~2022-10-09] VITALS: Ht 177.8 cm; Wt 70.2 kg
[~2022-10-09 06:35] MED LIST changes: +CLOP-31 PO; -CLOP75TA69 PO; -RT-ALBUTEROL SULF 2.5 MG/3 ML PRE-MIX VIAL INH ONE
== END 2022-10-11 09:29 | disposition home or self-care (01) ==
LOC: PREOP 06:35
PROVIDERS: ATTEND Surgery
DX: Z01.818 Encounter for other preprocedural examination (principal)

== ENCOUNTER 2022-11-23 10:04 | Outpatient (CLI) | payer OTHER ==
[~2022-11-23] VITALS: Ht 177.8 cm; Wt 70.2 kg
== END 2022-11-23 11:48 ==
LOC: PREOP 10:04
PROVIDERS: ATTEND Surgery
DX: Z01.818 Encounter for other preprocedural examination (principal); Z12.11 Encounter for screening for malignant neoplasm of colon